=== PATIENT | female | born 1955 | race Caucasian/White ===

== ENCOUNTER 2017-06-27 10:48 | Outpatient (CLI) | payer OTHER ==
--- OUTSIDE RECORDS SUMMARY | 2017-06-27 11:51 | XMS | Clinical Summary ---
:1955 Author Organization [facility] Address [address] [place] [address] Phone Care Team Providers Name Role Phone Dylan Orellana Primary Care Provider tel Allergies Active Allergy Reactions Severity Noted Date Comments No Known Drug Allergies 02/10/2016 Current Medications Prescription Sig. Disp. Refills Start Date End Date Status PROAIR HFA 90 11/11/2016 Active mcg/actuation inhaler HYDROcodone-acetamin TAKE 1 TABLET 0 01/08/2017 Active ophen (NORCO) 10-325 EVERY 4 HOURS mg per tablet NEEDED silver sulfadiazine APPLY BY 2 12/16/2016 Active (SILVADENE, SSD) 1 % TOPICAL ROUTE cream 2 TIMES EVERY DAY A 1/16 INCH (1.5 MM) THICK LAYER TO ENTIRE BURN AREA traZODone (DESYREL) Take 3 tablets 270 tablet 3 01/15/2017 Active 50 MG tablet (150 mg total) by mouth nightly. citalopram (CeleXA) Take 1 tablet 90 tablet 3 01/23/2017 Active 40 MG tablet (40 mg total) 8 by mouth daily. 1 po qd cholestyramine Take 0.5 45 packet 11 04/28/2017 Active (QUESTRAN) 4 gram packets (2 g 8 powder total) by mouth 3 (three) times a day with meals. rivaroxaban TAKE 1 TABLET 06/22/2017 Active (XARELTO) 20 mg DAILY. tablet carvedilol (COREG) TAKE 1 TABLET 04/04/2017 Active 12.5 MG tablet BY MOUTH 4 TIMES DAILY. tretinoin (RETIN-A) Apply 45 g 0 06/26/2017 Active 0.05 % cream topically 8 nightly. carvedilol (COREG) 4 po qd 07/04/2016 Discontinued 12.5 MG tablet 7 rivaroxaban Take 20 mg by Discontinued (XARELTO) 20 mg mouth daily. 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 Social History Tobacco Use Types Packs/Day Years Used Date Current Every Day Smoker Tobacco Cessation:Ready to Quit: No; Counseling Given: No Alcohol Use Drinks/Week oz/Week Comments Defer Sex Assigned at Date Recorded Not on file Last Filed Vital Signs Vital Sign Reading Time Taken Blood Pressure 122/70 06/24/2017 10:38 AM CDT Pulse - - Temperature 36.7 C (98 F) 01/15/2017 8:50 AM CDT Respiratory Rate - - Oxygen Saturation - - Inhaled Oxygen Concentration - - Weight 109 kg (241 lb) 06/24/2017 10:38 AM CDT Height 182.9 cm (6') 06/24/2017 10:38 AM CDT Body Mass Index 32.69 06/24/2017 10:38 AM CDT Plan of Treatment Health Maintenance Due Date Last Done Comments PAP SMEAR 1978 COLONOSCOPY 2007 MAMMOGRAM 2007 INFLUENZA VACCINE 05/13/2017 Results hCG qualitative, urine screen (06/24/2017 11:36 AM) Component Value Ref Range test, urine Negative Negative Specimen Performing Laboratory Urine [facility] Narrative Performed at:[id number] Bra[employer] Molder: Umer Hooper MD, Phone:[phone] CBC with platelet and differential (06/24/2017 11:36 AM) Component Value Ref Range WBC 5.7 3.4 - 10.8 x10E3/uL RBC 4.55 3.77 - 5.28 x10E6/uL HGB 14.4 11.1 - 15.9 g/dL HCT 42.9 34.0 - 46.6 % MCV 94 79 - 97 fL MCH 31.6 26.6 - 33.0 pg MCHC 33.6 31.5 - 35.7 g/dL RDW 13.4 12.3 - 15.4 % Platelet count 267 150 - 379 x10E3/uL Neutrophils 51 % Lymphocytes 36 % Monocytes 10 % Eosinophils 2 % Basophils 1 % Neutrophils, absolute 2.9 1.4 - 7.0 x10E3/uL Lymphocytes, absolute 2.1 0.7 - 3.1 x10E3/uL Monocytes, absolute 0.5 0.1 - 0.9 x10E3/uL Eosinophils, absolute 0.1 0.0 - 0.4 x10E3/uL Basophils, absolute 0.0 0.0 - 0.2 x10E3/uL Immature granulocytes 0 % Immature grans (abs) 0.0 0.0 - 0.1 x10E3/uL Specimen Performing Laboratory Blood [facility] Narrative Performed at:[address] [place], [place] [id number] Bra[employer] Molder: Umer Hooper MD, Phone:[phone] Hemoglobin A1c (06/24/2017 11:36 AM) Component Value Ref Range Hemoglobin A1C 5.3 4.8 - 5.6 % Comment: Pre-diabetes: 5.7 - 6.4 Diabetes: >6.4 Glycemic control for adults with diabetes: <7.0 Specimen Performing Laboratory Blood [facility] Narrative Performed at:[address] [place], [place] [id number] Bra[employer] Molder: Umer Hooper MD, Phone:[phone] Comprehensive metabolic panel (06/24/2017 11:36 AM) Component Value Ref Range Glucose 102(H) 65 - 99 mg/dL BUN, whole blood 15 6 - 24 mg/dL Creatinine 0.73 0.57 - 1.00 mg/dL EGFR Non-Afr. Romanian 90 >59 mL/min/1.73 EGFR 104 >59 mL/min/1.73 BUN/creatinine ratio 21 9 - 23 Sodium 142 134 - 144 mmol/L Potassium 5.6(H) 3.5 - 5.2 mmol/L Chloride 101 96 - 106 mmol/L CO2 24 18 - 29 mmol/L Calcium 10.0 8.7 - 10.2 mg/dL Protein 7.7 6.0 - 8.5 g/dL Albumin, S 4.5 3.5 - 5.5 g/dL Globulin, total 3.2 1.5 - 4.5 g/dL Albumin/globulin ratio 1.4 1.2 - 2.2 Total bilirubin 0.7 0.0 - 1.2 mg/dL Alkaline phosphatase 85 39 - 117 IU/L AST 19 0 - 40 IU/L ALT 18 0 - 32 IU/L Specimen Performing Laboratory Blood [facility] Narrative Performed at: - [facility] [id number] Brake Drum Molder: Umer Hooper MD, Phone:[phone] ECG 12 lead (06/24/2017 11:03 AM) Component Value Ref Range Ventricular rate 76 Atrial rate 76 MS interval 152 QRSD interval 88 QT interval 372 QTC interval 418 P axis 1 75 QRS axis 1 59 T wave axis 52 EKG impression Normal sinus rhythm-Normal ECG-In automated comparison with ECG of 24-JUN-2017 11:03,-No significant change was found- Specimen Performing Laboratory [facility] [address] [place] [address] from Last 3 Months Insurance Payer Benefit Plan / Group Subscriber ID Type Phone Address BCBS BCBS CHOICE PPO/F[employer]ER[employer] EMPL PPO [id number] PPO
== END 2017-06-27 10:49 | disposition home or self-care (01) ==
LOC: LABBT 10:48
PROVIDERS: ATTEND Surgery
DX: Z01.818 Encounter for other preprocedural examination (principal); E66.01 Morbid (severe) obesity due to excess calories

== ENCOUNTER 2017-07-16 09:35 | Inpatient (IN) | payer BC ==
--- OUTSIDE RECORDS SUMMARY | 2017-07-16 09:39 | XMS | Clinical Summary ---
:1955 Author Organization [facility] Address [address] [place] [address] Phone Care Team Providers Name Role Phone [...] Performing Laboratory Urine [facility] Narrative Performed at:[id number] Foiling Machine Adjuster: Umer Hooper MD, Phone:[phone] CBC with platelet and differential (06/24/2017 11:36 [...] Specimen Performing Laboratory Blood [facility] Narrative Performed at:[address] [place], [place] [id number] Foiling Machine Adjuster: Umer Hooper MD, Phone:[phone] Hemoglobin A1c (06/24/2017 11:36 AM) Component Value Ref Range Hemoglobin A1C 5.3 4.8 - 5.6 % Comment: Pre-diabetes: 5.7 - 6.4 Diabetes: >6.4 Glycemic control for adults with diabetes: <7.0 Specimen Performing Laboratory Blood [facility] Narrative Performed at:[address] [place], [place] [id number] Foiling Machine Adjuster: Umer Hooper MD, Phone:[phone] Comprehensive metabolic panel (06/24/2017 11:36 AM) Component Value Ref Range Glucose 102(H) 65 - 99 mg/dL BUN, whole blood 15 6 - 24 mg/dL Creatinine 0.73 0.57 - 1.00 mg/dL EGFR Non-Afr. Nicaraguan 90 >59 mL/min/1.73 EGFR 104 >59 mL/min/1.73 [...] Blood [facility] Narrative Performed at: - [facility] [id number] Foiling Machine Adjuster: Umer Hooper MD, Phone:[phone] ECG 12 lead (06/24/2017 11:03 AM) Component Value Ref Range Ventricular rate 76 Atrial rate 76 OK interval 152 QRSD interval 88 QT interval 372 QTC interval 418 P axis 1 75 QRS axis 1 59 T wave axis 52 EKG impression Normal sinus rhythm-Normal ECG-In automated comparison with ECG of 24-JUN-2017 11:03,-No significant change was found- Specimen Performing Laboratory [facility] [address] [place] [address] from Last 3 Months Insurance Payer Benefit Plan / Group Subscriber ID Type Phone Address BCBS BCBS CHOICE PPO/F[employer]ERAL EMPL PPO [id number] PPO
[2017-07-16 10:21] LABS: Hematocrit 37.3 % (36.0-47.0); Mean Platelet Volume 7.9 fL (7.4-10.4); Red Blood Cell (RBC) Count 3.84 mill/uL (4.20-5.40); White Blood Cell (WBC) Count 19.7 thou/uL (4.8-10.8)
[2017-07-16] MEDS ORDERED: Ondansetron HCl/PF 4 MG/2 ML Vial ONE ×2 (10:29→13:27)
[2017-07-16 10:40] LABS: Lactic Acid - Sepsis 1.3 mmol/L (0.5-2.2)
[2017-07-16 10:41] LABS: Band 15 % (5-11); Neutrophil 73 % (42-75)
[2017-07-16 10:51] LABS: ALT (SGPT) 20 U/L (8-55); AST (SGOT) 20 U/L (5-34); Alkaline Phosphatase 97 U/L (40-150); Anion Gap 17 mmol/L (10-20); BUN (Urea Nitrogen) 35 mg/dL (9.8-20.1); Bilirubin, Total 1.9 mg/dL (0.2-1.2); Calc. Creatinine Clearance 0 mL/min (70-130); Calcium 9.9 mg/dL (7.8-10.44); Carbon Dioxide 17 mmol/L (22-29); Chloride 102 mmol/L (98-107); Estimated GFR-MDRD 57; Globulin 4.4 g/dL (2.4-3.5)
[2017-07-16 10:56] LABS: Troponin I Less than 0.010 ng/mL (< 0.028)
[2017-07-16] MEDS ORDERED: Sodium Chloride 0.9% 100 ML ONE (11:07)
[2017-07-16] MEDS ORDERED: Piperacillin/Tazobactam 4.5 GM VIAL ONE (11:07)
--- NOTE | 2017-07-16 11:14 | RAD ---
PORTABLE CHEST 1 VIEW: Date: 07/16/17 Time: 1034 hours HISTORY: 61-year-old female with abdominal pain, vomiting, hematemesis, chest pain during taking a deep breat h. FINDINGS: Comparison made with exam of 02/04/13. The heart size is borderline. The lungs are well expanded without focal areas of consolidation, pneu mothorax, or pleural effusions. Postop changes in the lower cervical spine and the distal left clavi alfredo are again seen. IMPRESSION: No radiographic evidence of acute cardiopulmonary process. POS: OFF
--- NOTE | 2017-07-16 12:11 | CT ---
CT ABDOMEN AND PELVIS WITH IV CONTRAST: Date: 07/16/17 INDICATION: History of hematemesis and abdominal pain that began 3 days ago. The patient is status post gastric sleeve procedure on 07/03/17. FINDINGS: There is mild left basilar atelectasis. There is a 5.0 mm pulmonary nodule within the left lower lob e, which was present in 2013 and is likely benign. There is postprocedural change consistent with a cholecystectomy and gastric sleeve procedure. There is a large mixed density fluid and gas collection seen along the margin of the gastroplasty site me asuring 189 x 11.9 cm. There are a few scattered locules of gas within the anterior abdominal cavity consistent with pneumoperitoneum. Small locules of gas are seen within the transverse mesocolon. The pancreas and right adrenal gland are normal appearing. The spleen is normal appearing. There is bilateral nephrolithiasis. There are small renal cysts bilaterally. The left adrenal nodule measurin g 1.2 cm is stable to the comparison in 2013. There is a normal appendix in the right lower quadrant . The bladder is partially decompressed. There is scattered diverticula involving the colon without evidence of active diverticulitis. There is a fat-containing umbilical hernia. No definite acute osseous abnormality is evident. There is scattered degenerative and osteoarthritic change. IMPRESSION: 1. Findings consistent with a contained leak along the gastroplasty site. 2. Interval cholecystectomy. 3. Left lower lobe benign pulmonary nodule. 4. Bilateral nephrolithiasis and bilateral renal cysts. 5. Colonic diverticulosis. Findings called to Dr. Durand at 1115 hours on 07/16/17. CODE CR. POS: [facility]
[2017-07-16] MEDS ORDERED: Diltiazem HCl 125 MG, Admixture Fee 1 EACH in Sodium Chloride 0.9% 100 ML IVPB ONE (12:30)
[2017-07-16] MEDS ORDERED: Fentanyl 250 MCG/5 ML VIAL ONE (12:32)
[2017-07-16 12:48] LABS: PTT 38.3 SEC (22.9-36.1); Prothrombin Time 17.7 SEC (12.0-14.7)
[2017-07-16] MEDS ORDERED: Bupivacaine 0.25% HCL 30 ML VIAL ONE (12:50)
--- NOTE | 2017-07-16 12:57 | HP ---
CHIEF COMPLAINT: Abdominal pain and vomiting. HISTORY OF PRESENT ILLNESS: The patient is a 61-year-old female 2 weeks status post sleeve gastrect leyla who was doing well, but over the last few days has started vomiting blood. She said that 2 days ago she vomited a blood clot, felt better. She initially was able to drink some more fluid, but th en continued to vomit blood. She denies fever. Yesterday could not drink. Her last urine was this morning, was dark. She reports blood from her rectum this morning. PAST MEDICAL HISTORY: She has had a cardiac ablation x4 with Dr. Dan. PAST SURGICAL HISTORY: She has had a laparoscopic cholecystectomy, bilateral mastectomy for breast cancer. She has the sleeve and a cervical fusion. MEDICATIONS: ALLERGIES: No known drug allergies. SOCIAL HISTORY: She is . She does not work. She smokes 1 pack per day. No alcohol. FAMILY HISTORY: Noncontributory. PHYSICAL EXAMINATION: VITAL SIGNS: Temperature is 98.5, pulse 134, blood pressure 109/55. GENERAL: She is a well-developed, well-nourished female lying still, awake, alert. HEENT: Unremarkable. LUNGS: Clear. ABDOMEN: Her abdomen is distended. She has got ecchymosis from all the incisions, minimal tenderne ss. She had a CT scan showing a very large fluid collection abutting the staple line with air fluid leve ls that is worrisome for anastomotic leak, but they did not use oral contrast. LABORATORY AND X-RAY FINDINGS: White count is 19.7, H\T\H 12 and 37, platelet count 464. Electroly birdie are fine. ASSESSMENT: Probable anastomotic or suture line disruption with abscess. PLAN: Laparoscopic drainage with feeding jejunostomy. CONSENT: I have discussed the planned procedure as well as risk of bleeding, infection, injury to b owel, bladder, need to open. She understands and gives informed consent.
[2017-07-16 13:14] LABS: Bilirubin Negative (Negative); Blood, Urine Moderate (Negative); Glucose, Urine (Dipstick) Negative (Negative); Ketone, Urine 15 mg/dL (Negative); Nitrite Negative (Negative); Protein, Urine (Dipstick) 30 mg/dL (Neg-Trace)
[2017-07-16] MEDS ORDERED: ADMIXTURE FEE IV SCH (13:15)
[2017-07-16] MEDS ORDERED: HUMAN PROTHROMBIN COMPLX IV SCH (13:15)
[2017-07-16 13:18] LABS: Bacteria/HPF None Seen HPF (None Seen); Hyaline Casts/LPF 0-3 HYALINE CAST LPF (0-3 Hyaline); Squamous Epithelial 0-3 HPF (0-3); WBC/HPF 0-3 HPF (0-3)
[2017-07-16] MEDS ORDERED: PHENYLEPHRINE-NS 100 MCG/ML 10 ML SYRINGE ONE (13:27)
[2017-07-16] MEDS ORDERED: Lidocaine 2% PF 10 ML AMP (For Epidural Use) ONE (13:27)
[2017-07-16] MEDS ORDERED: Propofol 200 MG/20 ML VIAL ONE (13:27)
[2017-07-16] MEDS ORDERED: Succinylcholine Chloride 20 MG/ML 10 ml SYRINGE FS ONE (13:27)
[2017-07-16] MEDS ORDERED: Glycopyrrolate 0.2 MG/ML 5 ML SYRINGE ONE (13:27)
[2017-07-16] MEDS ORDERED: Dextrose 5% in Water 1,000 ML IV PRN (14:48)
[2017-07-16] MEDS ORDERED: diphenhydrAMINE HCl 50 MG/ML 1 ML VIAL IVP PRN (14:48)
[2017-07-16] MEDS ORDERED: Dextrose 50% Abboject 50 ML SYRINGE SLOW IVP PRN (14:48)
[2017-07-16] MEDS ORDERED: Hydrocodone-Acetamin 15 ML UDCUP PO PRN (14:48)
[2017-07-16] MEDS ORDERED: Promethazine HCl 25 MG/ML VIAL IM PRN ×2 (14:48→15:13)
[2017-07-16] MEDS ORDERED: Promethazine HCl 25 MG/ML VIAL SLOW IVP PRN (15:13)
[2017-07-16] MEDS ORDERED: Ondansetron HCl/PF 4 MG/2 ML Vial IVP PRN (15:13)
[2017-07-16] MEDS ORDERED: Fentanyl 100 MCG/2 ML VIAL ONE ×2 (15:22→15:46)
[2017-07-16] MEDS ORDERED: Esmolol 100 MG/10 ML VIAL ONE (15:28)
[2017-07-16] MEDS ORDERED: ISOVUE-370 76%-LOCM 1 ML ONE (16:27)
[2017-07-16] MEDS ORDERED: Metoprolol Tartrate 5 MG/5 ML VIAL ONE (16:32)
[2017-07-16] MEDS: D5 1/2 NS w/20 mEq KCL 1,000 ML IV SCH (16:33)
[2017-07-16] MEDS: Ondansetron HCl/PF 4 MG/2 ML Vial IVP PRN (16:33)
--- NOTE | 2017-07-16 16:39 | OP ---
PREOPERATIVE DIAGNOSIS: Intra-abdominal abscess. SURGEON: Alli Durand M.D. PROCEDURE PERFORMED: Laparoscopic drainage of abscess and EGD. INDICATIONS: This is a 61-year-old female 2 weeks status post sleeve gastrectomy developed progress cris dysphagia, tachycardia. CT scan showing a large fluid collection with air fluid levels within i t consistent with abscess along the staple line. FINDINGS: It was a thin bloody fluid. Cultures were obtained. It was foul smelling. It contained about 500 mL of fluid. The mucosa was normal. There was no air leak, no evidence of communication into the lumen. PROCEDURE: After informed consent was obtained, the patient was taken to the operating room and giv en general endotracheal anesthesia. She was placed in the supine position. Her abdomen was prepped and draped in the usual fashion. Local anesthesia infiltrated subcutaneously and deep and a 5 mm i ncision was performed just supraumbilical. Veress needle inserted. Drop test performed. Pneumoper itoneum was created to a volume of 2 liters of carbon dioxide. Utilizing a bladeless 5 mm trocar an d 5 mm 0-degree scope, direct visual entry in the abdominal cavity was performed. Pneumoperitoneum was then created to a pressure of 15 mmHg. Under direct vision, two 5-mm ports were placed, one in right lateral abdomen, one in the left lateral abdomen. The liver was gently lifted and the fluid c ollection was entered with release of dark blood. This was aspirated and specimen was obtained for culture. Then, the rest of the fluid was removed. The cavity was thoroughly irrigated with saline. At this point, I went ahead and put in a liver retractor to lift the liver away, so we could fully visualize the area of the gastric sleeve and an intraoperative endoscopy was performed. The video endoscope inserted under direct vision and advanced into the stomach. The staple line completely he aled. There was no blood within the stomach. The stomach was insufflated with air under water. Th ere was no air leak. We inspected every fraction of that stomach and I could not find any evidence of leak both internal or external as we observed both from the inside with the scope and outside wit h the laparoscope. Then the stomach was decompressed and the scope removed. The cavity was thoroug hly irrigated with fluid as much of the old hematoma removed and 2 drains were placed, one from the left side crossing into the subhepatic space and one from the subxiphoid area draining right into th at cavity as well. These were sutured in place. Hemostasis was assured. Trocars and retractors re moved. The skin was closed with interrupted vertical mattress of 2-0 Prolene. Sterile bandages benito lied. Patient tolerated the procedure well and transferred to ICU in stable, but serious condition.
--- NOTE | 2017-07-16 16:42 | RAD ---
CHEST ONE VIEW 07/16/17 HISTORY: Central line placement. FINDINGS: The cardiac silhouette is magnified by projection. Pulmonary vasculature is unremarkable. Mediastinu m is midline. Tip of a left subclavian central venous catheter overlies the superior vena cava. Ther e is no evidence of pneumothorax. Postoperative changes of the cervical spine are partially visualiz ed. IMPRESSION: Left subclavian central venous catheter is in good radiographic position. POS: [facility]
[2017-07-16] MEDS: Piperacillin/Tazobactam 3.375 GM in Sodium Chloride 0.9% 100 ML IVPB SCH (17:08)
[2017-07-16 17:16] VITALS: BMI 31.6
[2017-07-16] MEDS: Amiodarone HCl 450 MG, Admixture Fee 1 EACH in Dextrose 5% in Water 250 ML IVPB SCH ×3 (17:50)
[2017-07-16] MEDS: metroNIDAZOLE 500 MG in Premix Bag 1 BAG IVPB SCH (21:30)
[2017-07-16] MEDS ORDERED: Digoxin 0.5 MG/2 ML AMP SLOW IVP SCH (21:30)
--- NOTE | 2017-07-16 23:46 | CON ---
DATE OF CONSULTATION: 07/16/2017 CRITICAL CARE TIME: 30 minutes. HISTORY OF PRESENT ILLNESS: This patient is a 61-year-old woman with a long history of atrial fibrillation, who presents with recurrent palpitations. The patient has a long history of atrial fibrillation. She has undergone multiple ablations for atrial fibrillation. She recently underwent surgery. The patient presented to the emergency room with abdominal discomfort. She underwent an emergent surgery. She was found to have a leak at the gastroplasty site and a hematoma. The patient underwent surgery. She was noted prior to surgery be in irregular heart rhythm. The patient reports palpitations. PAST MEDICAL HISTORY: 1. Atrial fibrillation. 2. Hypertension. 3. Breast carcinoma. PAST SURGICAL HISTORY: Hysterectomy, shoulder surgery, mastectomy and cholecystectomy. HOME MEDICATIONS: Xarelto 20 daily, Coreg 12.5 q.i.d. and Celexa 400 daily. SOCIAL HISTORY: The patient continues to use tobacco. FAMILY HISTORY: Positive family history of father who had myocardial infarction. PHYSICAL EXAMINATION: GENERAL: Middle-aged woman in acute distress. VITAL SIGNS: Blood pressure of 109/70. NECK: Showed no jugular venous distention. LUNGS: Clear to auscultation. HEART: Regular rate and rhythm, normal S1, S2. ABDOMEN: Distended with a BETTY drain. EXTREMITIES: Showed trace edema. LABORATORY DATA: White blood cell count is 19.7, hemoglobin 12.3, hematocrit 37.3 and platelets are 464. Sodium is 132, potassium 3.8, chloride 102, bicarbonate is 17, BUN 35, creatinine is 1.0, glucose 112, troponin less than 0.012. EKG revealed atrial fibrillation with a nonspecific T-wave abnormality. security monitor revealed sinus tachycardia. This patient developed paroxysmal atrial fibrillation. She underwent emergent surgery. At this time, the patient was treated with IV Cardizem. The patient most likely will not be able to back on anticoagulation therapy. We will switch the patient on IV amiodarone. We will follow this patient with you through her hospitalization. KIMANI
--- NOTE | 2017-07-16 23:57 | CON ---
DATE OF CONSULTATION: 07/16/2017 HISTORY OF PRESENT ILLNESS: A 61-year-old female, history is well outlined, who recently underwent on 07/04/2017 gastric sleeve resection. She was doing well postop and for the last several days, jonas pichardo has had symptoms of nausea and vomiting and apparently, vomited blood and passed some blood in the stool. She was seen by Dr. Durand for evaluation of hematemesis and lower GI bleed. She underwent a laparos copic intervention today. Please see Dr. Durand's note. Postop in the ICU, reason for consult. She is a former smoker. She has cut back smoking 2 cigarettes a day. PAST MEDICAL HISTORY: Well outlined including previous cardiac arrhythmias, multiple ablations, dep ression, and previous breast cancer. PAST SURGICAL HISTORY: Including a recent gastric sleeve gastrectomy, previous bilateral mastectomy , gallbladder, previous cervical surgery. MEDICINE FROM HOME: Includes Xarelto 20, trazodone 50, Celexa 40, Coreg 12.5. ALLERGIES: None. SOCIAL HISTORY: Unremarkable. FAMILY HISTORY: Unremarkable. PHYSICAL EXAMINATION: VITAL SIGNS: Postop blood pressure is 105/57 on A-line, pulse 130, respirations 18, sats 100%. CHEST: No wheezing or crackles. CARDIAC: Normal S1 and S2. No gallops. ABDOMEN: Soft. LABORATORY DATA: White count 90,000, hemoglobin and hematocrit 12 and 37, platelet counts 465. Cre atinine normal. Sodium is 132. Albumin is 3.6. IMAGING DATA: She had a chest x-ray which shows no acute infiltrates. She had a CT done of the abd omen, which shows some kind of a leak like area along the gastro site and bilateral nephrolithi asis. IMPRESSION: 1. Status post laparoscopic visualization of the recent gastric sleeve area with apparently hematom a on site. 2. Long-term Xarelto for atrial arrhythmias. 3. Depression. 4. Obesity. 5. Breast cancer. PLAN: Pulmonary mari, I agree with symptomatic relief of her pain, neb treatment as prescribed. Lan sidhu PT. We will follow while in the ICU. Early ambulation.
[2017-07-17] MEDS: D5 1/2 NS w/20 mEq KCL 1,000 ML IV SCH
[2017-07-17] MEDS: Amiodarone HCl 450 MG, Admixture Fee 1 EACH in Dextrose 5% in Water 250 ML IVPB SCH ×3 (00:05)
[2017-07-17] MEDS ORDERED: Digoxin 0.5 MG/2 ML AMP SLOW IVP SCH (01:30)
[2017-07-17 04:39] LABS: Anion Gap 10 mmol/L (10-20); BUN (Urea Nitrogen) 26 mg/dL (9.8-20.1); Calc. Creatinine Clearance 130 mL/min (70-130); Carbon Dioxide 22 mmol/L (22-29); Chloride 104 mmol/L (98-107); Estimated GFR-MDRD 76
[2017-07-17 05:23] LABS: Acanthocytes SLIGHT = 1-5 cells (100X) (None Seen); Band 19 % (5-11); Helmet Cells SLIGHT = 2-5 cells (100X) (0-1/hpf); Hematocrit 33.3 % (36.0-47.0); Mean Platelet Volume 7.5 fL (7.4-10.4); Metamyelocyte 5 % (0-0); Neutrophil 53 % (42-75); Reactive Lymphocytes 2 % (0-10); Red Blood Cell (RBC) Count 3.37 mill/uL (4.20-5.40); Toxic Granulation SLIGHT; White Blood Cell (WBC) Count 8.3 thou/uL (4.8-10.8)
[2017-07-17] MEDS: Piperacillin/Tazobactam 3.375 GM in Sodium Chloride 0.9% 100 ML IVPB SCH ×4 (05:48→11:28)
[2017-07-17] MEDS: metroNIDAZOLE 500 MG in Premix Bag 1 BAG IVPB SCH ×2 (05:58→12:46)
[2017-07-17] MEDS ORDERED: Sodium Chloride 0.9% 500 ML IV SCH (07:30)
[2017-07-17] MEDS: Ondansetron HCl/PF 4 MG/2 ML Vial IVP PRN (08:27)
[2017-07-17] MEDS ORDERED: Pantoprazole 40 MG VIAL IVP SCH (09:00)
[2017-07-17] MEDS ORDERED: Enoxaparin Sodium 40 MG/0.4 ML SYRINGE SC SCH (09:00)
--- NOTE | 2017-07-17 09:44 | PRG ---
DATE OF SERVICE: 07/17/2017 This morning, awake, alert, responsive. She is still NPO. She is going to have a swallow test done today. PHYSICAL EXAMINATION: VITAL SIGNS: Still tachy at 130, respirations 22, temperature 97, remained afebrile, sats are 93-94 % on room air. CHEST: Chest revealed decreased breath sounds, no wheezing. CARDIAC: Sinus tachycardia. ABDOMEN: Soft, no masses. LABORATORY: White count 8000, H\T\H 10 and 33, platelet count is 403. INR 1.4. Electrolytes are n ormal. Sodium 132. IMPRESSION: 1. Status post laparoscopic drainage of a sleeve gastrectomy abnormality. 2. Tobacco abuse. 3. Sinus tachycardia. PLAN: Will get a swallow test. Continue observation in the ICU. Continue antibiotics. We will fo llow while in the ICU.
--- NOTE | 2017-07-17 10:04 | RAD ---
LIMITED UPPER GI WITH 15 Ml GASTROGRAFIN: HISTORY: Recent surgery from complication of vertical sleeve gastrectomy. FINDINGS: There is prompt passage of contrast from the esophagus into the gastric remnant with contrast extrav asation below the level of the diaphragm. IMPRESSION: Contrast extravasation consistent with leak. Discussed over the telephone with Dr. Alli Durand at 9:40 a.m. CODE THUY POS: [facility]
[2017-07-17 11:08] VITALS: TEMP 98.2
[2017-07-17] MEDS ORDERED: D5 1/2 NS w/20 mEq KCL 1,000 ML IV SCH (11:45)
[2017-07-17] MEDS ORDERED: Iopamidol 300 61% 30 ML VIAL ONE (12:00)
--- NOTE | 2017-07-17 20:52 | CON ---
DATE OF CONSULTATION: 07/17/2017 REFERRING PHYSICIAN: Dr. Marroquin. I am seeing Ms. Espinosa at our [facility] ICU who is elected from the project consultant. Her problems are: 1. Recurrent atrial arrhythmias. A. Presentation on 01/24/2017, with a rapid atrial fibrillation/flutter. B. Prior history of multiple left atrial ablation procedure including in 07/2015, which included a left atrial appendage isolation. 2. History of tachycardia-induced cardiomyopathy, now with normal ejection fraction. A. A 2D echo on 02/15/2017, shows no thrombus in the left atrial appendage, mild tricuspid regurgitation. 3. History of breast cancer. 4. History of hypertension. ALLERGIES: None noted. MEDICATIONS: Xarelto 10 mg a day, Celexa 40 mg a day, Carvedilol 25 mg twice a day and trazodone 50 mg p.o. p.r.n. SUBJECTIVE: Ms. Espinosa was admitted after recent sleeve gastrectomy about 2 weeks back. She did well, but couple of days prior to admission, she started vomiting blood. She also vomited some clots and she felt better and then she was able to drink some fluid, but the vomiting continued, hence she was admitted. She was evaluated by her surgeon, Dr. Durand and she underwent a laparoscopic drainage of an abscess and also an EGD was done. In fact, there was no air leak, but eventually a decision was made that she should undergo a gastric stenting procedure . She was started on IV amiodarone for rate control by Dr. Marroquin. Currently, she has no fever, chills or cough. No stroke-like symptoms. No neurological deficits. Again, the hematemesis/ vomiting is noted. On the other hand, she is very emotionally upset. PAST MEDICAL HISTORY: As above. SOCIAL HISTORY: Patient denies smoking, EtOH or drug use. FAMILY HISTORY: Noncontributory. OBJECTIVE DATA: VITAL SIGNS: Blood pressure 120/71, heart rate 132, respirations 16 and temperature 98.2 degrees Fahrenheit. GENERAL: This is an alert and oriented woman in no apparent distress. NECK: Supple. Jugular veins not distended. CHEST: Coarse without crackles. ABDOMEN: Laparotomy incisions are without reaction. Abdomen is otherwise benign. Bowel sounds are positive. EXTREMITIES: Lower extremities without edema, clubbing or cyanosis. Pulses are adequate. NEUROLOGIC: Patient is nonfocal. MUSCULOSKELETAL: No joint swelling or deformities. SKIN: Without rash. DATABASE: EKGs reviewed reveals an atypical atrial flutter with likely 2:1 AV conduction. LABORATORY DATA: White count is 8.3, hemoglobin 10.9 and platelet count is 403. Sodium is 132, potassium is 4.3, BUN is 26, creatinine is 0.78 and INR is 1.4. The upper GI study today reveals contrast extravasation conservatively. ASSESSMENT AND PLAN: Ms. Espinosa is a pleasant 61-year-old woman with multiple left atrial ablation procedures for persistent atrial fibrillation and atypical atrial flutters. This includes also left atrial appendage isolation in the past. Now, she is here with the possible post-gastric sleeve leak demonstrated by her upper GI series and also she developed atrial flutter with rapid rate. She was started on amiodarone drip. Complicated issues obviously that she needs to come off the Xarelto and she is not receiving it since admit At this point, I agree with rate control amiodarone. If necessary, digoxin could be added to the regimen. On the other hand, she received IV digoxin 0.75 mg. Cardioversion could be a consideration, but now, she is off the Xarelto, this is likely a very difficult proposition without risking some thromboembolism. DEACON/CV is also difficult in this situation, although could be considered at a later time for cardioversion if that is felt necessary if agreed by GI. For now, continue IV amiodarone as it is initiated. IV beta-blockers could be added as well as IV digoxin if felt necessary. Possible cardioversion at a later date and anticoagulation can be resumed. MTDD
--- NOTE | 2017-07-17 20:55 | DIS ---
DISCHARGE DIAGNOSES: Gastric staple line leak, intra-abdominal abscess, postoperative hematoma, and atrial fibrillation with rapid ventricular response. PROCEDURES DURING ADMISSION: Cardizem drip, laparoscopic drainage of intra-abdominal abscess, intra operative esophagogastroscopy, and postoperative Gastrografin swallow. HOSPITAL COURSE: The patient was admitted from the emergency room where CT scan showed a large flui d collection. They did not use oral contrast. She was taken to the operating room where she was dr payton. She was in atrial fibrillation. She was maintained on a cardiac drip. Intraoperatively, jonas pichardo had EGD that showed no evidence of a leak. Drains were placed. Postoperatively, she is doing bet ter, still in atrial flutter at a rate of about 130, but awake and alert and otherwise good vital si gns. Cardiology was consulted; they felt like she was in just flutter. They were going to consult the EP doctors. Gastrografin swallow was performed that showed a definite leak. GI in [place] was consulted, , who feels that he can offer stenting and will accept the patient in transfer, but will go from here to the ICU at [facility] in [place], so the hospitalist will admit the patient . So, we are transferring the patient. Vital signs; heart rate 132 in atrial flutter, blood pressu re 136/78. Awake, alert, with two drains and on IV fluids.
--- NOTE | 2017-07-18 06:25 | EKG ---
Test Reason : A FIB Blood Pressure : / mmHG Vent. Rate : 132 BPM Atrial Rate : 132 BPM P-R Int : 000 ms QRS Dur : 094 ms QT Int : 294 ms P-R-T Axes : 090 027 -81 degrees QTc Int : 435 ms Sinus tachycardia Abnormal ECG When compared with ECG of 16-JUL-2017 09:49, (Unconfirmed) Sinus rhythm has replaced Atrial fibrillation Confirmed by ANDREW CAREY ([id number]) on 07/18/2017 6:25:13 AM Referred By: CAREY Confirmed By:ANDREW CAREY
== END 2017-07-17 14:00 | disposition short-term general hospital (02) | DRG 856 ==
LOC: ERS 09:35 → CCU 13:46
PROVIDERS: ADMIT Surgery; ATTEND Surgery
PROC: 0DJ08ZZ Inspection of Upper Intestinal Tract, Via Natural or Artificial Opening Endoscopic (ICD-10-PCS; principal; 2017-07-16)
PROC: 0W9G4ZX Drainage of Peritoneal Cavity, Percutaneous Endoscopic Approach, Diagnostic (ICD-10-PCS; 2017-07-16)
PROC: 02HV33Z Insertion of Infusion Device into Superior Vena Cava, Percutaneous Approach (ICD-10-PCS; 2017-07-16)
DX: T81.4XXA Infection following a procedure, initial encounter (principal); K65.1 Peritoneal abscess; K91.870 Postprocedural hematoma of a digestive system organ or structure following a digestive system procedure; I48.92 Unspecified atrial flutter; F17.210 Nicotine dependence, cigarettes, uncomplicated; Z98.84 Bariatric surgery status; Z90.13 Acquired absence of bilateral breasts and nipples; Z98.1 Arthrodesis status; R00.0 Tachycardia, unspecified; F32.9 Major depressive disorder, single episode, unspecified; I48.0 Paroxysmal atrial fibrillation
CPT/HCPCS: 36416; 71010; 74177; 74241; 80048; 80053; 81003; 81015; 82553; 83605; 84484; 85025; 85610; 85730; 86850; 86900; 86901; 87040; 87070; 87077; 87186; 87205; 93005; 93010; 96361; 96365; 96375; C9113; C9132; J0282; J1160; J1642; J1650; J2001; J2270; J2405; J2543; J2704; J3010; J7050; J7070; S0020

== ENCOUNTER 2017-07-28 17:14 | Inpatient (IN) | payer BC ==
[2017-07-28 17:36] VITALS: BMI 32.8
[2017-07-28] MEDS ORDERED: Diltiazem HCl 125 MG, Admixture Fee 1 EACH in Sodium Chloride 0.9% 100 ML SLOW IVP SCH (18:15)
[2017-07-28] MEDS ORDERED: Heparin 10,000 UNITS/ 10 ML VIAL SLOW IVP SCH (18:15)
[2017-07-28] MEDS: Heparin 25,000 units/D5W 500 ML IV SCH (19:39)
[2017-07-28] MEDS: traZODone HCl 150 MG TAB PO SCH (21:30)
[2017-07-28] MEDS: Metoprolol Tartrate 25 MG TAB PO SCH (21:30)
[2017-07-28] MEDS: Piperacillin/Tazobactam 3.375 GM in Sodium Chloride 0.9% 100 ML IVPB SCH (21:30)
[2017-07-28] MEDS ORDERED: Vancomycin HCl 1.25 GM in Sodium Chloride 0.9% 250 ML 250 ML IVPB SCH (23:00)
[2017-07-29] MEDS: Piperacillin/Tazobactam 3.375 GM in Sodium Chloride 0.9% 100 ML IVPB SCH ×2 (02:29→10:30)
--- NOTE | 2017-07-29 03:10 | CON ---
DATE OF CONSULTATION: 07/29/2017 REQUESTING: Dr. Alli Durand. PRIMARY RIV[employer]ER [employer]RA[employer]: Dr. Marroquin. PRIMARY CARE PHYSICIAN: Out of town. REASON FOR CONSULTATION: Medical management. HISTORY OF PRESENT ILLNESS: Ms. Espinosa is a 61-year-old white female with a complicated recent past m edical history. She underwent a laparoscopic gastric sleeve on 07/03/2017. Intraoperative course wa s uncomplicated. She was discharged home on 07/04/2017. She was readmitted here on 07/16/2017-07/17/2017 for what appeared to be a postop complication of leak with abscess. She underwent drainage of a foul smelling fluid growing what looks like three differ ent anaerobic gram negative rods, Citrobacter freundii and Enterobacter cloacae. She was subsequent ly transferred on 07/17/2017 to [facility] to be seen by Dr. Aguirre there and was at [facility] from 02/2017-07/28/2017. Her course there was consisted of gastroesophageal junction stent on 07/28/2017, repeat imaging on 07/21/2017 showed persistent leak and on 07/24/2017 underwent a second stent place ment. Since then she has had no evidence of leak. She has been in and out of atrial flutter there and has required amiodarone loading, diltiazem drip, heparin drip, and digoxin. She is currently in sinus rhythm. She was transferred from [facility] back to [place] today as a reason for referral was completed and she is back here for continuation of care. First thing she ask when I enter the room today was when she gets to go home. She denies any chest pain, difficulty breathing, nausea, and vomiting. Her only complaint is that she did all this for w eight loss and has actually gained weight. She complains of bilateral lower extremity edema. No ot her current complaints. PAST MEDICAL HISTORY: 1. Atrial fibrillation/atrial flutter. 2. Breast cancer, status post bilateral mastectomy. 3. Hypertension. 4. Depression. 5. Gastric sleeve leak as above. PAST SURGICAL HISTORY: Includes: 1. Cardioversion 03/03/2015. She has had ablation x4 for atrial flutter. 2. Gastric sleeve 07/03/2017 with laparoscopic drainage without feeding jejunostomy on 07/16. Subse quent stent placement on 07/18 and 07/24. 3. Laparoscopic cholecystectomy remotely. 4. C-spine fusion remotely. MEDICATIONS: 1. Xarelto 20 a day on hold. 2. Trazodone 50 mg at bedtime. 3. Celexa 40 mg daily. 4. Coreg 12.5 mg b.i.d. CURRENT MEDICATIONS: In house: 1. Amiodarone 200 mg p.o. b.i.d. 2. Lipitor 10 mg p.o. at bedtime. 3. Digoxin 0.125 mg p.o. daily. 4. Metoprolol tartrate 50 mg b.i.d. 5. Zofran 4 mg q.6 hours p.r.n. 6. Vancomycin and Zosyn. 7. Protonix 40 mg daily. ALLERGIES: No known drug allergies. FAMILY HISTORY: Negative for clotting or bleeding disorder. No immune dysfunction. SOCIAL HISTORY: She is . Smokes 1 pack of cigarettes per day. No alcohol or IV drug use. She does not work regularly. REVIEW OF SYSTEMS: A 10-point review of systems was performed and is negative for all other systems except as stated per HPI. PHYSICAL EXAMINATION: VITAL SIGNS: Temperature 97.9, pulse 85, blood pressure 147/65, respiratory rate 16, satting 95% on room air. GENERAL: She is awake. She is alert. She is oriented x3. She is a well-developed, well-nourished , white female, who appears to be in no acute distress. HEENT: Normocephalic, atraumatic. Pupils are equal, round and reactive to light bilaterally. Muco us membranes are moist. There are no visible lesions, no thrush. LUNGS: Clear anteriorly. She has a faint bibasilar crackles. She has no wheezes or rales. No pro longed expiratory phase. She has symmetrical chest excursion and good air exchange. CARDIOVASCULAR: She has normal S1, S2. She has regular rhythm and a normal rate. I do not appreci ate murmurs. ABDOMEN: Soft. It is nontender. She has no rebound, rigidity or guarding with good bowel sounds. She has two drains placed percutaneously with some sediment laden tannish drainage. EXTREMITIES: Show no cyanosis, no clubbing. She has 2+ peripheral edema up to about the level of t he knee bilaterally. She has 2+ peripheral pulses in dorsalis pedis and posterior tibial. SKIN: Warm, moist, and well perfused. She has a left chest triple-lumen central venous catheter in place with a dressing that is clean, dry, and intact. MUSCULOSKELETAL: Normal to inspection without any inflammation or palpable joint effusions. NEUROLOGIC: Cranial nerves II through XII are grossly intact. She has no focal deficits, 5/5 stren gth in her all 4 extremities with normal speech pattern. LABORATORY DATA: None today. Labs from [facility]'s chart was reviewed. Microbiologic data was revi ewed from here. ASSESSMENT AND PLAN: 1. Gastric sleeve with postop complication of leak and intra-abdominal abscess, status post drainag e and now with stent placement for persistent leak. She was transferred back to [place] for long-term care. She will need long-term IV antibiotics. Typically with adequate drainage, we treat for mini mum of 2 weeks or until radiographically resolved. In this case, she has drains in place and contin ued to drain. I would plan on treating for at least 4 weeks or until radiographically resolved. Jena pichardo is currently on vancomycin and Zosyn. I have no cultures here with staph. In fact, only culture showed gram-negative rods and anaerobes. I do not see any microbiologic data from the outside hospi ysabel that would warrant continuation of vancomycin at this time, although it is covering upper GI for such as Peptostreptococcus and possibly Enterococcus. These should be covered with Zosyn. We shou ld be able to streamline this to Zosyn. The biggest concern is the Citrobacter freundii and Enterob acter cloacae tend to become resistant if there is foci that will take longer than a couple of weeks to clear, even resistant while on monotherapy. Fortunately double covering with fluoroquinolone co uld exacerbate her tendency to go back into arrhythmias. We will continue current management at pre sent. We will likely need Infectious Disease consultation for long-term antibiotic management. 2. Atrial fibrillation/atrial flutter. Currently on a Cardizem drip at 5 mg per hour, digoxin, ami odarone, still in loading dose of [address] Marroquin has been consulted by Dr. Durand. We will follow his recommendations. 3. Hypertension, currently stable. 4. Depression. 5. Volume overload with peripheral edema: Likely secondary to multiple infusions she is on. We wi ll continue to monitor. Morning labs have been ordered, her inpatient medicines have been continued here on transfer. We wi ll follow up on consulting recommendations in the morning and be available to manage medically.
[2017-07-29 06:08] LABS: #Eosinphils 0.1 thou/uL (0.0-0.7); #Monocytes 0.9 thou/uL (0.11-0.59); #Neutrophils 10.3 thou/uL (1.40-6.50); %Basophils 0.3 % (0.0-1.0); %Eosinophils 0.8 % (0.0-10.0); %Lymphocytes 8.2 % (21.0-51.0); %Monocytes 7.4 % (0.0-10.0); Hematocrit 29.4 % (36.0-47.0); Mean Platelet Volume 7.9 fL (7.4-10.4); Red Blood Cell (RBC) Count 2.97 mill/uL (4.20-5.40); White Blood Cell (WBC) Count 12.3 thou/uL (4.8-10.8)
[2017-07-29 06:26] LABS: ALT (SGPT) 13 U/L (8-55); AST (SGOT) 11 U/L (5-34); Alkaline Phosphatase 78 U/L (40-150); Anion Gap 10 mmol/L (10-20); BUN (Urea Nitrogen) 8 mg/dL (9.8-20.1); Bilirubin, Total 0.4 mg/dL (0.2-1.2); Calc. Creatinine Clearance 39 mL/min (70-130); Calcium 8.5 mg/dL (7.8-10.44); Carbon Dioxide 30 mmol/L (22-29); Chloride 103 mmol/L (98-107); Estimated GFR-MDRD 32; Globulin 3.8 g/dL (2.4-3.5); Protein, Total 6.3 g/dL (6.0-8.3)
[2017-07-29] MEDS ORDERED: Bisacodyl 10 MG SUPP PR PRN (07:27)
--- NOTE | 2017-07-29 07:43 | HP ---
CHIEF COMPLAINT: Followup gastric leak. HISTORY OF PRESENT ILLNESS: The patient is a 61-year-old female who underwent a sleeve gastrectomy on 07/03/2017. She was restarted on her anticoagulants within 24 hours due to atrial fibrillation f lutter. She developed postop hematoma and she continued to smoke cigarettes, despite being told not to. She started vomiting, started vomiting up some old blood. got tachycardic, came to the ER 2 w eeks postoperatively was found to have an abscess. She was taken to the operating room where she un derwent a drainage procedure, initially during that surgery did not find a leak, but on the next day with a swallow study she did have a leak. She also was readmitted with atrial fibrillation and a r apid ventricular response. Cardiology was consulted, that was controlled with Cardizem. She was tr ansferred to [place] to [facility] where she underwent a gastric stent placement. The initial one d id not work properly, it migrated, the second one did work and now the leak is controlled. She has 2 drains in that were placed laparoscopically. She complains of abdominal pain and hunger. She is tired of the liquid diet. PAST MEDICAL HISTORY: Atrial fibrillation flutter. PAST SURGICAL HISTORY: She has had cardiac ablation x4 with Dr. Dan. She has had a laparoscopic cholecystectomy. She has had bilateral mastectomy for breast cancer, sleeve and a cervical fusion as well as drainage procedure. MEDICATIONS: Carvedilol, Celexa, Xarelto. ALLERGIES: She has known drug allergies. FAMILY HISTORY: Father of heart attack. Mother is . SOCIAL HISTORY: She is . She recently quit smoking. She does drink occasional alcohol. PHYSICAL EXAMINATION: VITAL SIGNS: Temperature 98.3, pulse 76, blood pressure 160/73. GENERAL: She is awake, alert, appears to be uncomfortable. HEENT: No jaundice. LUNGS: Clear. HEART: Regular rate and rhythm. ABDOMEN: Soft, slightly distended. There is a thick purulent fluid coming out both of the BETTY drain s. There is no palpable mass. The incisions are healing well. EXTREMITIES: Unremarkable. LABORATORY AND X-RAY FINDINGS: White count 12.3, H\T\H of 9.2 and 29, platelet count 285 and her PT T is 90. Her chemistries, electrolytes are fine. Elevated glucose at 119. ASSESSMENT: Status post stenting for gastric leak. PLAN: Full liquids, Cardiology evaluation.
--- NOTE | 2017-07-29 08:01 | PDOC.PN ---
- Subjective Encounter Start Date: 07/29/17 Encounter Start Time: 07:59 Ms. Espinosa notes some abdominal discomfort. she says it rates at about a 5-7/10 constantly. She denies chest pain or shortness of breath. - Objective MAR Reviewed: Yes Vital Signs & Weight: Vital Signs (12 hours) Temp Pulse Resp BP Pulse Ox 07/29/17 07:35 98.0 F 77 18 145/67 H 92 L 07/29/17 05:36 98.3 F 76 14 163/73 H 93 L Weight Weight 148 lb I&O: 07/28/17 07/29/17 07/30/17 06:59 06:59 06:59 Intake Total 798 Output Total 1125 Balance -327 Result Diagrams: 07/29/17 05:58 07/29/17 05:58 Phys Exam - Physical Examination HEENT: PERRLA Respiratory: no wheezing, no rales, no rhonchi, clear to auscultation bilateral Cardiovascular: RRR, no significant murmur, no rub Gastrointestinal: soft, non-tender, positive bowel sounds Musculoskeletal: edema present + swelling both lower extremities Dx/Plan (1) Gastric leak Code(s): K91.89 - OTH POSTPROCEDURAL COMPLICATIONS AND DISORDERS OF DGSTV SYS Status: Acute (2) Hypertension Code(s): I10 - ESSENTIAL (PRIMARY) HYPERTENSION Status: Acute (3) Atrial fib/flutter, transient Code(s): JKO3599 - Status: Acute (4) Morbid obesity Code(s): E66.01 - MORBID (SEVERE) OBESITY DUE TO EXCESS CALORIES Status: Acute - Plan * Gastric Sleeve s/p leak, and intra-abdominal infection. She also developed AFIB with RVR. * AFIB- her heart rate is controlled, however she is still on a Cardizem drip, she is also on Metoprolol and Digoxin orally * Await further recommendation by Cardiology * HTN- blood pressure is elevated- will monitor over the course of the day, and consider adding Amlodipine * Intra-abdominal infection- agree with ID consult, to aid in antibiotic choice , and length of therapy
[2017-07-29] MEDS ORDERED: FLU VACC QS2017-18 36 mo. & older 0.5 ML SYRINGE IM ONE (09:00)
[2017-07-29] MEDS ORDERED: Digoxin 0.125 MG TAB PO SCH (09:00)
[2017-07-29] MEDS: Citalopram 20 MG TAB PO SCH (10:00)
[2017-07-29] MEDS: Metoprolol Tartrate 25 MG TAB PO SCH ×2 (10:11→21:38)
[2017-07-29] MEDS: Heparin 25,000 units/D5W 500 ML IV SCH ×2 (11:18→23:50)
--- NOTE | 2017-07-29 13:06 | CON ---
DATE OF CONSULTATION: 07/29/2017 REASON FOR CONSULTATION: Post-sleeve gastrectomy leak with abscess. HISTORY OF PRESENT ILLNESS: A 61-year-old patient who has a history of atrial fibrillation flutter, previously on anticoagulation who had a sleeve gastrectomy who had episodes of vomiting following the procedure and eventually was diagnosed with a leak with an abscess. She went to [place] and had a stent placed for diversion or protection of the area of leak and allow healing. In the meantime, she was under a liquid diet only and receiving broad spectrum coverage. The organisms isolated from the abscess are discussed below. She is sitting up in bed awake, alert, in mild to moderate pain in the abdominal area. No headaches, visual symptoms, sore throat, odynophagia, dysphagia, no dyspnea or cough, some back pain. No genitourinary symptoms. No joint symptoms. PAST MEDICAL HISTORY: Atrial fibrillation, flutter on anticoagulation in the past, cardiac ablation by Dr. Dan, cholecystectomy, mastectomy for management of breast cancer, sleeve gastrectomy with leak as noted above, and cervical fusion. MEDICATIONS: Currently she is receiving Dulcolax, Celexa, heparin, Lopressor, Protonix, Zosyn, vancomycin. ALLERGIES: None. FAMILY HISTORY: Coronary artery disease. SOCIAL HISTORY: Lives in [place], former smoker, quit recently. Drinks occasionally. . PHYSICAL EXAMINATION: VITAL SIGNS: T-max 98.2, blood pressure 140/60, pulse 77, respirations 18, O2 sat 92-95%. GENERAL: She does not appear in distress. SKIN: With surgical site. She has [address] and they were supposed to be removed soon, a central line in the left subclavian position. HEENT: Ocular movements are conjugate. Oral cavity moist. NECK: Supple. LUNGS: With symmetric air entry. HEART: S1, S2, regular rate. No S3, S4. ABDOMEN: Mildly tender in the anterior upper segment around the midline. Bowel sounds are present, no ascites. No bladder distention. EXTREMITIES: No joint inflammatory activity. There is some element of stasis dermatitis and lymphedema in lower extremities. Pulses are 1+ in dorsalis pedis. Plantar responses are flexor. No clonus. NEUROLOGIC: Cognitive function appears to be intact. Follows commands, oriented, pleasant. LABORATORY DATA: White cell count 12.3, hemoglobin 9.2, MCV 99, platelets 285 with 82% neutrophils and INR was not done. Sodium 139, creatinine 1.64. This is higher than her baseline which is 0.721. Liver profile normal. Albumin 2.5. The previous imaging study report from 07/16/2017 with a contained leak along the gastroplasty site, cholecystectomy, pulmonary nodule and a large mixed density fluid and gas collection along the margin of the gastroplasty measuring 18 x 11 cm. ASSESSMENT: Atrial fibrillation flutter in the past with ablation, previously on anticoagulation and then a sleeve gastrectomy associated with leak and intra- abdominal abscess s/p drainage and stenting. The patient has had drainage procedure. The abscess has the expected polymicrobial patsy with Citrobacter freundii, Enterobacter cloacae and various anaerobes as noted. The patient will be transitioned to a PICC line and continue IV meropenem the outpatient setting whenever she is ready for discharge planning after control of the SVT and for a few weeks. Followup CT scan to verify resolution of the collection. Eventually she will have the stent removed after the predicted healing of the leakage area. Discussed potential adverse reactions from the antimicrobial therapy, particularly skin and hypersensitivity reactions of diarrhea, kidney or liver, bone marrow toxicity as well as complications resulting from PICC line, particularly clotting and obstruction of the lumen and so on. MTDD
[2017-07-29] MEDS ORDERED: Meropenem 1 GM in Sodium Chloride 0.9% 100 ML IVPB SCH (14:00)
--- NOTE | 2017-07-29 15:33 | CON ---
DATE OF CONSULTATION: 07/29/2017 HISTORY OF PRESENT ILLNESS: The patient is a pleasant 61-year-old woman, who presents for cardiac evaluation after undergoing stent placement. The patient has a history of multiple ablations for atrial fibrillation. The patient presented with abdominal discomfort. The patient previously underwent bariatric surgery and subsequently developed abdominal discomfort and underwent surgery. The patient developed recurrent palpitations. The patient was noted to be in atrial fibrillation. She had to be transferred to [place] for an emergent stent placement into her abdomen. The patient has been maintained on amiodarone, Cardizem and IV heparin. The patient denies having any palpitations. The patient denies having any chest discomfort. She reports having mild abdominal discomfort. PAST MEDICAL HISTORY: 1. Atrial fibrillation. 2. Hypertension. 3. Breast carcinoma. PAST SURGICAL HISTORY: Hysterectomy, shoulder surgery, mastectomy, and cholecystectomy. SOCIAL HISTORY: The patient has a long history of tobacco abuse. FAMILY HISTORY: Positive family history of heart disease. MEDICATIONS: Digoxin 0.125 q.a.m., Celexa 40 daily, amiodarone 200 b.i.d., metoprolol 50 b.i.d., IV heparin, IV Cardizem, trazodone 150 at bedtime, Protonix 40 daily, vancomycin and piperacillin. REVIEW OF SYSTEMS: Ten point system noticeable for diarrhea and lower extremity swelling. Ten-point system otherwise unremarkable. PHYSICAL EXAMINATION: GENERAL: An obese woman in no acute distress. VITAL SIGNS: Blood pressure 145/67. NECK: No jugular venous distention. LUNGS: Clear to auscultation. HEART: Regular rate and rhythm, normal S1, S2, no murmurs. ABDOMEN: Mildly distended. EXTREMITIES: Showed moderate bilateral edema. SKIN: Warm and dry. NEUROLOGIC: Nonfocal. VASCULAR: Radial pulses are 2+. LABORATORY DATA: Sodium 139, potassium 3.6, chloride 103, bicarbonate 30, BUN 8 , creatinine 1.64. White blood cell count 12.3, hemoglobin 9.2, hematocrit 29.4 and platelets are 285. Her telemetry monitoring revealed normal sinus rhythm. IMPRESSION: 1. Atrial fibrillation/flutter. 2. Status post gastric leak following bariatric surgery. 3. Renal insufficiency. 4. Obesity. PLAN: This patient developed atrial fibrillation/flutter. She had been in [place] for the past 2 weeks. From a cardiac standpoint, we would maintain the patient on amiodarone. We will discontinue her Cardizem and digoxin. The patient prior to discharge can to be placed back on Xarelto. We will follow this patient with you through her hospitalization. KIMANI
[2017-07-29] MEDS: Meropenem 1 GM, Admixture Fee 1 EACH in Sodium Chloride 0.9% 100 ML IVPB SCH ×2 (17:41→23:52)
[2017-07-29] MEDS: Ondansetron HCl/PF 4 MG/2 ML Vial SLOW IVP PRN (21:39)
[2017-07-29] MEDS: traZODone HCl 150 MG TAB PO SCH (21:39)
[2017-07-30] MEDS: Citalopram 20 MG TAB PO SCH (10:04)
[2017-07-30] MEDS: Meropenem 1 GM, Admixture Fee 1 EACH in Sodium Chloride 0.9% 100 ML IVPB SCH ×2 (10:04→16:32)
[2017-07-30] MEDS: Metoprolol Tartrate 25 MG TAB PO SCH ×2 (10:04→21:18)
[2017-07-30] MEDS ORDERED: Iopamidol 370 76% 50 ML VIAL FS ONE (13:31)
--- NOTE | 2017-07-30 13:46 | PDOC.PN ---
- Subjective Encounter Start Date: 07/30/17 Encounter Start Time: 13:44 Ms. Espinosa is complaining of some abdominal pain. She denies chest pain or shortness of breath. - Objective MAR Reviewed: Yes Vital Signs & Weight: Vital Signs (12 hours) Temp Pulse Resp BP Pulse Ox 07/30/17 12:05 96.7 F L 77 18 136/63 93 L 07/30/17 07:40 96.7 F L 77 18 94 L 07/30/17 07:30 98.4 F 91 20 171/81 H 94 L 07/30/17 04:00 99.0 F 88 20 133/60 93 L Weight Weight 242 lb 4.8 oz I&O: 07/29/17 07/30/17 07/31/17 06:59 06:59 06:59 Intake Total 798 616 Output Total 1125 1000 Balance -327 -384 Result Diagrams: 07/29/17 05:58 07/29/17 05:58 Additional Labs: Accuchecks 07/30/17 11:06 POC Glucose 130 H Phys Exam - Physical Examination HEENT: PERRLA Respiratory: no wheezing, no rales, no rhonchi, clear to auscultation bilateral Cardiovascular: irregular Gastrointestinal: soft, non-tender, positive bowel sounds Musculoskeletal: no edema Dx/Plan (1) Gastric leak Code(s): K91.89 - OTH POSTPROCEDURAL COMPLICATIONS AND DISORDERS OF DGSTV SYS Status: Acute (2) Hypertension Code(s): I10 - ESSENTIAL (PRIMARY) HYPERTENSION Status: Acute (3) Atrial fib/flutter, transient Code(s): JLO1031 - Status: Acute (4) Morbid obesity Code(s): E66.01 - MORBID (SEVERE) OBESITY DUE TO EXCESS CALORIES Status: Acute - Plan * Intra-abdominal infection s/p Gastric sleeve- Repeat CT-scan is pending * ID input is appreciated- she will need Meropenem, length of time to be determined by Dr. Charlton * AFIB- she is now off Cardizem, and her heart rate is stable on Amiodarone * She can re-start Xarelto if CT -scan of abdomen indicates adequate drainage * HTN- blood pressure is stable.
--- NOTE | 2017-07-30 15:39 | CT ---
CT ABDOMEN AND PELVIS WITHOUT CONTRAST: HISTORY: Followup leak or abscess. Gastric bypass. COMPARISON: Upper GI 07/17/17. FINDINGS: The patient did not fully drink all of her contrast. This limits the evaluation. Large left pleural effusion. Small right pleural effusion. Compressive atelectasis at the lung bas e. Esophageal stent is present. There is a drain from the skull of the left upper quadrant of the abdo men which enters into the perigastric collection. This does contain contrast. It is unclear if thi s contrast is new or from the prior procedure. There is a small focus of gas adjacent to a suture line series 2 image 20 which may represent contin ued breakdown. The collection has a 2nd internal and external drainage catheter from the anterior mid abdominal wal l. Small volume free fluid in the pelvis. There is a subcapsular hematoma of the spleen. The skeleton is unremarkable. IMPRESSION: 1. Contrast-containing collection adjacent to the stomach suture line does contain contrast and is concerning for a continued contained perforation. There is gas as well as material within this wal led off collection along with 2 drainage catheters. 2. Large left and small right pleural effusion. 3. New esophageal stent. 4. Small subcapsular hematoma of the spleen. 5. Small volume free fluid in the pelvis. 6. Small focus of gas adjacent to the suture line of the GE junction series 2 image 19-21 may repre sent continued perforation. CODE T POS: WOJCIECH
[2017-07-30] MEDS ORDERED: Hydrocodone-Acetamin 15 ML UDCUP PO PRN (16:37)
[2017-07-30] MEDS: traZODone HCl 150 MG TAB PO SCH (21:19)
[2017-07-31] MEDS: Meropenem 1 GM, Admixture Fee 1 EACH in Sodium Chloride 0.9% 100 ML IVPB SCH ×3 (00:05→17:23)
[2017-07-31 06:00] LABS: Anion Gap 9 mmol/L (10-20); BUN (Urea Nitrogen) 7 mg/dL (9.8-20.1); Calc. Creatinine Clearance 70 mL/min (70-130); Calcium 8.7 mg/dL (7.8-10.44); Carbon Dioxide 33 mmol/L (22-29); Chloride 102 mmol/L (98-107); Estimated GFR-MDRD 36
[2017-07-31] MEDS ORDERED: Acetaminophen 650 MG/20.3 ML UDCUP PO PRN (10:03)
--- NOTE | 2017-07-31 10:12 | PDOC.PN ---
- Subjective Encounter Start Date: 07/31/17 Encounter Start Time: 10:11 Patient seen at bedside. No overnight events, no new complaints. - Objective MAR Reviewed: Yes Vital Signs & Weight: Vital Signs (12 hours) Temp Pulse Resp BP Pulse Ox 07/31/17 07:15 98.4 F 92 14 157/72 H 94 L 07/31/17 04:00 99.2 F 87 18 151/67 H 92 L Weight Weight 242 lb 6.4 oz I&O: 07/30/17 07/31/17 08/01/17 06:59 06:59 06:59 Intake Total 616 600 Output Total 1000 285 Balance -384 315 Result Diagrams: 07/29/17 05:58 07/31/17 04:06 Additional Labs: Accuchecks 07/30/17 11:06 POC Glucose 130 H Phys Exam - Physical Examination Constitutional: NAD HEENT: moist MMs Neck: no JVD Cardiovascular: irregular Gastrointestinal: soft BETTY Drains in place, continued drainage Musculoskeletal: pulses present Neurological: moves all 4 limbs Psychiatric: A&O x 3 Skin: no rash Dx/Plan (1) Gastric leak Code(s): K91.89 - OTH POSTPROCEDURAL COMPLICATIONS AND DISORDERS OF DGSTV SYS Status: Acute (2) Hypertension Code(s): I10 - ESSENTIAL (PRIMARY) HYPERTENSION Status: Chronic (3) Atrial fib/flutter, transient Code(s): RSH9153 - Status: Resolved (4) Morbid obesity Code(s): E66.01 - MORBID (SEVERE) OBESITY DUE TO EXCESS CALORIES Status: Chronic - Plan cont current plan of care, continue antibiotics, social group worker, out of bed/ ambulate * Continue with Meropenem for at least 2 weeks. PICC line to be placed today * Continue with Amiodarone for atrial flutter/fibrillation * Xarelto to be started tonight * Post surgical care per GS. * Monitor BETTY drainage * Transfer to surgical floor.
[2017-07-31 10:15] LABS: PTT 30.5 SEC (22.9-36.1); Prothrombin Time 15.9 SEC (12.0-14.7)
[2017-07-31] MEDS: Metoprolol Tartrate 25 MG TAB PO SCH ×2 (10:41→21:58)
[2017-07-31] MEDS: Citalopram 20 MG TAB PO SCH (10:41)
[2017-07-31] MEDS: Morphine 10 MG/ML VIAL SLOW IVP PRN ×3 (15:40→21:54)
--- NOTE | 2017-07-31 17:33 | PRG ---
DATE OF SERVICE: 07/31/2017 SUBJECTIVE: Ms. Espinosa still complaining of some left upper quadrant pain, although she states it is about the same it has been for the last few weeks. She has tolerated the full liquid diet. She sta birdie she is hungry and she wants eggs if possible. She was then able to do PICC line today, she matt ot lay on the hard table flat to do the fluoroscopy. PHYSICAL EXAMINATION: VITAL SIGNS: T-max 99, blood pressure is 173/90, pulse 80, respirations 18. Drain outputs, drain B is 80 per shift, the other one is about 10 per shift. She is having multiple voids. ABDOMEN: Soft. Wounds are healing well. The BETTY output is purulent. LABORATORY: White cell count is 12, hemoglobin is 9.2, and platelets are 285. Sodium 140, potassiu m 4.2, and creatinine 1.48. ASSESSMENT: Status post stent of gastric sleeve leak. PLAN: Continue full liquids for now, reattempt PICC line tomorrow. If not, she may need a Ayala.
--- NOTE | 2017-07-31 21:19 | PRG ---
DATE OF SERVICE: 07/31/2017 SUBJECTIVE: Feeling better. No headaches. No shortness of breath. Little abdominal tenderness. Still, with a liquid diet and PICC line has been ordered for today. OBJECTIVE: VITAL SIGNS: The temperature max 99.2, BP 170/90, pulse 80, respirations 18, O2 sat 95%. GENERAL: No distress. LUNGS: Clear. HEART: S1, S2, regular rate. ABDOMEN: Soft, not distended or tender. EXTREMITIES: Central line in left upper extremity, moves all extremities equally. LABORATORY DATA AND IMAGING STUDIES: She had a chemistry today with a creatinine of 1.48, which is better than the previous one. The abdomen and pelvis CT was repeated yesterday showed contrast cont aining collection adjacent to the stomach suture line concerning for contained perforation, gas, as well as material within the small collection along 2 drainage catheters. A small subcapsular hematoma of the spleen, a small volume of free fluid in the pelvis, and then a small focus of gas ad jacent to the suture line at GE junction series, 2 images 19-21, may represent continued perforation . ASSESSMENT AND DISCUSSION: Post-sleeve gastrectomy leak with an abscess in the abdominal area, stat us post stent placement, drainage, and currently on a broad-spectrum antimicrobial therapy, also wit h atrial fibrillation and flutter prior ablation, now with supraventricular tachycardia and atrial f ibrillation recurrence, now seems to have converted back to sinus rhythm. The patient to continue w [facility] IV antimicrobial therapy and will have the stent removed in about 6 weeks approximately. Emmy randhawae planning whenever felt to be ready by Dr. Durand and then will take her and train her in our [facility] for home IV antimicrobial therapy.
[2017-07-31] MEDS: Rivaroxaban 15 MG TAB PO SCH (22:02)
[2017-07-31] MEDS: Ondansetron HCl/PF 4 MG/2 ML Vial SLOW IVP PRN (22:07)
[2017-08-01] MEDS: Meropenem 1 GM, Admixture Fee 1 EACH in Sodium Chloride 0.9% 100 ML IVPB SCH ×4 (01:22→23:43)
[2017-08-01] MEDS: traZODone HCl 150 MG TAB PO SCH ×3 (02:17→21:14)
[2017-08-01] MEDS: Morphine 10 MG/ML VIAL SLOW IVP PRN ×6 (02:22→21:18)
[2017-08-01] MEDS: Citalopram 20 MG TAB PO SCH (08:23)
[2017-08-01] MEDS: Metoprolol Tartrate 25 MG TAB PO SCH ×2 (08:24→21:11)
[2017-08-01] MEDS ORDERED: Eucerin (Mineral Oil/Petrolatum,White) 30 gm Jar TOP PRN (11:08)
[2017-08-01] MEDS ORDERED: Sodium Chloride 0.65% Nasal 44 ML BOT EA NARE PRN (11:08)
[2017-08-01] MEDS ORDERED: hydrALAZINE 20 MG/ML VIAL SLOW IVP PRN (11:08)
[2017-08-01] MEDS ORDERED: HYDROcodone/Acetaminophen 5/325 mg Tablet PO PRN (11:08)
[2017-08-01] MEDS ORDERED: Mag-Al 1200 mg/1200 mg/30 ML UDCUP PO PRN (11:08)
[2017-08-01] MEDS ORDERED: Milk Of Magnesia 30 ML UDCUP PO PRN (11:08)
[2017-08-01] MEDS ORDERED: Artificial Tears 18 DROP/0.9 ML EA EYE PRN (11:08)
[2017-08-01] MEDS ORDERED: Temazepam 15 MG CAP PO PRN (11:08)
[2017-08-01] MEDS ORDERED: Diabetic Tussin 200 MG/10 ML UDCUP PO PRN (11:08)
[2017-08-01] MEDS ORDERED: Ondansetron ODT 4 MG TAB PO PRN (11:08)
[2017-08-01] MEDS ORDERED: Loratadine 10 MG TAB PO PRN (11:08)
--- NOTE | 2017-08-01 11:09 | PDOC.PN ---
- Subjective Encounter Start Date: 08/01/17 Encounter Start Time: 07:50 -: old records requested/rev pt can not lie on her back so PICC was not possible - Objective MAR Reviewed: Yes Vital Signs & Weight: Vital Signs (12 hours) Temp Pulse Resp BP BP Pulse Ox 08/01/17 08:59 98.7 F 82 15 92 L 08/01/17 08:38 98.7 F 82 15 166/81 H 92 L 08/01/17 04:00 98.6 F 83 18 149/73 H 94 L 08/01/17 00:00 98.8 F 74 18 142/74 H 92 L Weight Weight 256 lb 8 oz I&O: 07/31/17 08/01/17 08/02/17 06:59 06:59 06:59 Intake Total 600 840 Output Total 285 270 Balance 315 -270 840 Result Diagrams: 07/29/17 05:58 07/31/17 04:06 Phys Exam - Physical Examination Constitutional: NAD HEENT: PERRLA, moist MMs, sclera anicteric Neck: no JVD, supple Respiratory: no wheezing, no rales, no rhonchi Cardiovascular: RRR, no significant murmur, no rub Gastrointestinal: soft, non-tender, no distention, positive bowel sounds 2 drain+ Musculoskeletal: no edema, pulses present Neurological: non-focal, normal sensation Lymphatic: no nodes Psychiatric: normal affect, A&O x 3 Skin: no rash, normal turgor Dx/Plan (1) Acute kidney failure Status: Acute (2) Gastric leak Code(s): K91.89 - OTH POSTPROCEDURAL COMPLICATIONS AND DISORDERS OF DGSTV SYS Status: Acute (3) Anemia, normocytic normochromic Code(s): D64.9 - ANEMIA, UNSPECIFIED Status: Chronic (4) Hypertension Code(s): I10 - ESSENTIAL (PRIMARY) HYPERTENSION Status: Chronic (5) Morbid obesity Code(s): E66.01 - MORBID (SEVERE) OBESITY DUE TO EXCESS CALORIES Status: Chronic (6) Atrial fib/flutter, transient Code(s): PDI9624 - Status: Resolved - Plan cont current plan of care, continue antibiotics, social media manager * continue current IV antibiotics, meropenam * PICC is not possible, so ? Ayala catheter * drain care * medication reviewed as below * symptomatic treatment. Review of Systems - Review of Systems ENT: negative: Ear Pain, Ear Discharge, Nose Pain, Nose Discharge, Nose Congestion, Mouth Pain, Mouth Swelling, Throat Pain, Throat Swelling, Other Respiratory: negative: Cough, Dry, Shortness of Breath, Hemoptysis, SOB with Excertion, Pleuritic Pain, Sputum, Wheezing Cardiovascular: negative: Chest Pain, Palpitations, Orthopnea, Paroxysmal Noc. Dyspnea, Edema, Light Headedness, Other Gastrointestinal: negative: Nausea, Vomiting, Abdominal Pain, Diarrhea, Constipation, Melena, Hematochezia, Other Genitourinary: negative: Dysuria, Frequency, Incontinence, Hematuria, Retention , Other Musculoskeletal: negative: Neck Pain, Shoulder Pain, Arm Pain, Back Pain, Hand Pain, Leg Pain, Foot Pain, Other - Medications/Allergies Allergies/Adverse Reactions: Allergies Allergy/AdvReac Type Severity Reaction Status Date / Time No Known Allergies Allergy Verified 07/16/17 14:20 Medications: Current Medications Acetaminophen (Tylenol Elixir) 650 mg PO Q6H PRN PRN Reason: Pain Last Admin: 07/31/17 10:49 Dose: 650 mg Acetaminophen/Codeine Phosphate (Tylenol/Codeine Elixir) 10 ml PO Q4H PRN PRN Reason: Pain Amiodarone HCl (Cordarone) 200 mg PO BID [facility] Last Admin: 08/01/17 08:24 Dose: 200 mg Bisacodyl (Dulcolax) 10 mg [place] Q8H PRN PRN Reason: Constipation Citalopram Hydrobromide (Celexa) 40 mg PO DAILY [facility] Last Admin: 08/01/17 08:23 Dose: 40 mg Meropenem 1 gm/ Miscellaneous Medication 1 each/ Sodium Chloride 100 mls @ 200 mls/hr IVPB 0800,1600,2359 [facility] Last Admin: 08/01/17 09:32 Dose: 100 mls Metoprolol Tartrate (Lopressor) 50 mg PO BID [facility] Last Admin: 08/01/17 08:24 Dose: 50 mg Morphine Sulfate (Morphine Sulfate) 4 mg SLOW IVP Q1H PRN PRN Reason: Moderate to Severe Pain (6-10) Last Admin: 08/01/17 09:34 Dose: 4 mg Ondansetron HCl (Zofran) 4 mg SLOW IVP Q4H PRN PRN Reason: Nausea/Vomiting Last Admin: 07/31/17 22:07 Dose: 4 mg Pantoprazole Sodium (Protonix) 40 mg PO DAILY [facility] Last Admin: 08/01/17 08:23 Dose: 40 mg Rivaroxaban (Xarelto) 15 mg PO HS [facility] Last Admin: 07/31/17 22:02 Dose: Not Given Sodium Chloride (Flush - Normal Saline) 10 ml IVF Q12HR [facility] Last Admin: 08/01/17 08:24 Dose: 10 ml Sodium Chloride (Flush - Normal Saline) 10 ml IVF PRN PRN PRN Reason: Saline Flush Trazodone HCl (Desyrel) 150 mg PO HS [facility] Last Admin: 08/01/17 02:17 Dose: Not Given
[2017-08-01] MEDS: Acetaminophen/Codeine Oral Solution PO PRN ×2 (12:40→18:40)
--- NOTE | 2017-08-01 13:37 | RAD ---
UPRIGHT PORTABLE CHEST ONE VIEW: HISTORY: A 62-year-old female with a history of pleural effusion. COMPARISON: 07/16/2017 and prior abdomen and pelvis CT scan from 07/30/2017. FINDINGS: Left subclavian catheter in place. Status post ACDF changes of the lower cervical spine. There is persistent left-sided pleural effusion and small right-sided pleural effusion, showing little change from the prior CT, although these effusion changes are certainly more prominent than on 07/16/2017 study. No confluent pneumonia or overt edema. IMPRESSION: Bilateral pleural effusions, greater on the left side. Consider follow-up examination for clearing or stability. POS: WOJCIECH
--- NOTE | 2017-08-01 15:16 | PRG ---
DATE OF SERVICE: 08/01/2017 SUBJECTIVE: Ms. Espinosa has no new complaints today. She is still complaining of some left upper quad rant pain, although it is the same as it was before. I have written for Tylenol with Codeine, becau se the Tylenol with hydrocodone caused nightmares. She has not tried it yet. Her shortness of irineo th is fine if she is sitting up. She has known left pleural effusion. OBJECTIVE: VITAL SIGNS: She is afebrile. Sats are 91%-92% on 2 liters nasal cannula, multiple voids. She has had a few bowel movements today. JPs have put out a total of 170 in the last 24 hours that is puru lent. ABDOMEN: Soft. Wounds are healing well. LABORATORY DATA: Sodium 140, potassium 4.2, creatinine 1.48. Chest x-ray shows continued left grea ter than right pleural effusion. ASSESSMENT: Status post leak after sleeve, had stent placed by Dr. Brown, now drained, slow impro vement. PLAN: Not quite ready for discharge yet. Continue pureed diet, question diurese further for this l eft-sided pleural effusion.
[2017-08-01] MEDS ORDERED: Heparin 1,000 UNITS/ML VIAL ONE (16:24)
--- NOTE | 2017-08-01 18:19 | SPC ---
ULTRASOUND GUIDED RIGHT UPPER EXTREMITY PICC LINE PLACEMENT 08/01/17 HISTORY: Abdominal infection post gastric surgery. TECHNIQUE: After informed consent was obtained, patient was placed on the angiography table in the supine posit ion. Right upper extremity was meticulously prepped and draped in the usual sterile fashion. Skin an d subcutaneous tissues were infiltrated with buffered 1% lidocaine for local anesthesia at the inten ded puncture site. Utilizing concurrent real time ultrasound guidance, the right brachial vein is ac cessed utilizing micropuncture technique and concurrent real time ultrasound guidance. 5 [place] peel away sheath was placed. Prior to placement of the sheath, the guide wire was advanced into the IVC confirming placement of venous system. The right upper extremity PICC line was cut the appropriate l ength and placed over the guide wire with tip position overlying the distal SVC. Guide wire and peel away sheath were removed. The catheter was accessed and aspirated/flushed easily. Patient tolerated the procedure well without immediate complication. FLUOROSCOPY: Total fluoroscopy time is 0.4 minutes with total dose of 2757 mGy*cm2. FINDINGS: Technically successful placement of single lumen 5 [place] 39 cm PICC line via the right brachial vei n. Tip of the catheter overlies the distal SVC. Final spot fluoroscopic image of catheter placement obtained. IMPRESSION: Technically successful ultrasound guided right upper extremity PICC line placement. POS: WOJCIECH
[2017-08-01] MEDS: Rivaroxaban 15 MG TAB PO SCH (21:10)
[2017-08-01] MEDS: Famotidine 20 MG TAB PO SCH (21:11)
[2017-08-02] MEDS: Morphine 10 MG/ML VIAL SLOW IVP PRN ×3 (03:14→20:18)
[2017-08-02] MEDS: Acetaminophen/Codeine Oral Solution PO PRN (06:15)
[2017-08-02 06:33] LABS: #Eosinphils 0.1 thou/uL (0.0-0.7); #Lymphocytes 1.2 thou/uL (1.20-3.40); #Monocytes 1.1 thou/uL (0.11-0.59); #Neutrophils 5.1 thou/uL (1.40-6.50); %Basophils 0.2 % (0.0-1.0); %Eosinophils 1.8 % (0.0-10.0); %Lymphocytes 15.7 % (21.0-51.0); %Monocytes 14.8 % (0.0-10.0); Mean Platelet Volume 7.4 fL (7.4-10.4); Red Blood Cell (RBC) Count 3.16 mill/uL (4.20-5.40); White Blood Cell (WBC) Count 7.5 thou/uL (4.8-10.8)
[2017-08-02 06:54] LABS: ALT (SGPT) 16 U/L (8-55); AST (SGOT) 21 U/L (5-34); Alkaline Phosphatase 88 U/L (40-150); Anion Gap 8 mmol/L (10-20); BUN (Urea Nitrogen) 7 mg/dL (9.8-20.1); Bilirubin, Total 0.4 mg/dL (0.2-1.2); Calc. Creatinine Clearance 78 mL/min (70-130); Calcium 8.7 mg/dL (7.8-10.44); Carbon Dioxide 35 mmol/L (22-29); Chloride 100 mmol/L (98-107); Estimated GFR-MDRD 38; Globulin 3.9 g/dL (2.4-3.5); Protein, Total 6.6 g/dL (6.0-8.3)
[2017-08-02] MEDS: Citalopram 20 MG TAB PO SCH (08:34)
[2017-08-02] MEDS: Meropenem 1 GM, Admixture Fee 1 EACH in Sodium Chloride 0.9% 100 ML IVPB SCH ×2 (08:34→16:26)
[2017-08-02] MEDS: Metoprolol Tartrate 25 MG TAB PO SCH ×2 (08:35→21:42)
[2017-08-02] MEDS: Famotidine 20 MG TAB PO SCH ×2 (08:35→21:42)
[2017-08-02] MEDS ORDERED: Furosemide 20 MG/2 ML VIAL SLOW IVP SCH (09:00)
--- NOTE | 2017-08-02 10:53 | PDOC.PN ---
- Subjective Encounter Start Date: 08/02/17 Encounter Start Time: 07:50 c/o dyspnea, no cough, no fever, picc line placed. - Objective MAR Reviewed: Yes Vital Signs & Weight: Vital Signs (12 hours) Temp Pulse Resp BP Pulse Ox 08/02/17 08:04 98.8 F 81 16 156/63 H 95 08/02/17 04:26 98.8 F 81 17 164/73 H 92 L Weight Weight 257 lb 11.2 oz I&O: 08/01/17 08/02/17 08/03/17 06:59 06:59 06:59 Intake Total 840 Output Total 270 310 Balance -270 530 Result Diagrams: 08/02/17 06:05 08/02/17 06:05 Phys Exam - Physical Examination Constitutional: NAD HEENT: PERRLA, moist MMs, sclera anicteric Neck: no JVD, supple Respiratory: no wheezing, no rales, no rhonchi reduced air entry at left base Cardiovascular: RRR, no significant murmur, no rub Gastrointestinal: soft, non-tender, no distention, positive bowel sounds [address] Musculoskeletal: no edema, pulses present Neurological: non-focal, normal sensation, moves all 4 limbs Psychiatric: normal affect, A&O x 3 Skin: no rash, normal turgor Dx/Plan (1) Acute kidney failure Status: Acute (2) Gastric leak Code(s): K91.89 - OTH POSTPROCEDURAL COMPLICATIONS AND DISORDERS OF DGSTV SYS Status: Acute (3) Anemia, normocytic normochromic Code(s): D64.9 - ANEMIA, UNSPECIFIED Status: Chronic (4) Hypertension Code(s): I10 - ESSENTIAL (PRIMARY) HYPERTENSION Status: Chronic (5) Morbid obesity Code(s): E66.01 - MORBID (SEVERE) OBESITY DUE TO EXCESS CALORIES Status: Chronic - Plan cont current plan of care, continue antibiotics, social director * renal function continue to improve, today will give lasix 20 mg iv bid for left pleural effusion and dyspnea * continue IV antibiotics as per below, on meropenam * medication reviewed as below * symptomatic treatment. Review of Systems - Review of Systems Respiratory: Shortness of Breath. negative: Cough, Dry, Hemoptysis, SOB with Excertion, Pleuritic Pain, Sputum, Wheezing Cardiovascular: negative: Chest Pain, Palpitations, Orthopnea, Paroxysmal Noc. Dyspnea, Edema, Light Headedness, Other Gastrointestinal: negative: Nausea, Vomiting, Abdominal Pain, Diarrhea, Constipation, Melena, Hematochezia, Other Genitourinary: negative: Dysuria, Frequency, Incontinence, Hematuria, Retention , Other Musculoskeletal: negative: Neck Pain, Shoulder Pain, Arm Pain, Back Pain, Hand Pain, Leg Pain, Foot Pain, Other Skin: negative: Rash, Lesions, Isa[place], Bruising, Other - Medications/Allergies Allergies/Adverse Reactions: Allergies Allergy/AdvReac Type Severity Reaction Status Date / Time No Known Allergies Allergy Verified 07/16/17 14:20 Medications: Current Medications Acetaminophen (Tylenol) 650 mg PO Q4H PRN PRN Reason: Headache/Fever or Mild Pain Acetaminophen/Codeine Phosphate (Tylenol/Codeine Elixir) 10 ml PO Q4H PRN PRN Reason: Pain Last Admin: 08/02/17 06:15 Dose: 10 ml Hydrocodone Bitart/Acetaminophen ([place] 5/325) 1 tab PO Q4H PRN PRN Reason: Moderate Pain (4-6) Al Hydroxide/Mg Hydroxide (Maalox) 15 ml PO Q4H PRN PRN Reason: Heartburn or Indigestion Amiodarone HCl (Cordarone) 200 mg PO BID [facility] Last Admin: 08/02/17 08:35 Dose: 200 mg Artificial Tears (Tears Naturale) 0 drop EA EYE PRN PRN PRN Reason: Dry Eyes Bisacodyl (Dulcolax) 10 mg [place] Q8H PRN PRN Reason: Constipation Citalopram Hydrobromide (Celexa) 40 mg PO DAILY [facility] Last Admin: 08/02/17 08:34 Dose: 40 mg Famotidine (Pepcid) 20 mg PO BID [facility] Last Admin: 08/02/17 08:35 Dose: 20 mg Furosemide (Lasix) 20 mg SLOW IVP 0600,1400 [facility] Furosemide (Lasix) 20 mg SLOW IVP 0900 [facility] Stop: 08/02/17 11:00 Last Admin: 08/02/17 08:43 Dose: 20 mg Guaifenesin (Robitussin Sf) 200 mg PO Q4H PRN PRN Reason: Cough Hydralazine HCl (Apresoline) 10 mg SLOW IVP Q4H PRN PRN Reason: Systolic BP > 180 Meropenem 1 gm/ Miscellaneous Medication 1 each/ Sodium Chloride 100 mls @ 200 mls/hr IVPB 0800,1600,2359 [facility] Last Admin: 08/02/17 08:34 Dose: 100 mls Loratadine (Claritin) 10 mg PO DAILYPRN PRN PRN Reason: Sinus Symptoms Magnesium Hydroxide (Milk Of Magnesium) 30 ml PO DAILYPRN PRN PRN Reason: Constipation Metoprolol Tartrate (Lopressor) 50 mg PO BID [facility] Last Admin: 08/02/17 08:35 Dose: 50 mg Mineral Oil/White Petrolatum (Eucerin Cream) 0 gm TOP BIDPRN PRN PRN Reason: Dry Skin Morphine Sulfate (Morphine Sulfate) 4 mg SLOW IVP Q1H PRN PRN Reason: Moderate to Severe Pain (6-10) Last Admin: 08/02/17 08:43 Dose: 4 mg Ondansetron HCl (Zofran) 4 mg SLOW IVP Q4H PRN PRN Reason: Nausea/Vomiting Last Admin: 07/31/17 22:07 Dose: 4 mg Ondansetron HCl (Zofran Odt) 4 mg PO Q6H PRN PRN Reason: Nausea/Vomiting Pantoprazole Sodium (Protonix) 40 mg PO DAILY [facility] Last Admin: 08/02/17 08:34 Dose: 40 mg Rivaroxaban (Xarelto) 15 mg PO HS [facility] Last Admin: 08/01/17 21:10 Dose: 15 mg Sodium Chloride (Flush - Normal Saline) 10 ml IVF Q12HR [facility] Last Admin: 08/02/17 08:55 Dose: 10 ml Sodium Chloride (Flush - Normal Saline) 10 ml IVF PRN PRN PRN Reason: Saline Flush Last Admin: 08/02/17 03:15 Dose: 10 ml Sodium Chloride ([place] 0.65%) 0 ml EA NARE QIDPRN PRN PRN Reason: Nasal Congestion Temazepam (Restoril) 15 mg PO HSPRN PRN PRN Reason: Insomnia Trazodone HCl (Desyrel) 150 mg PO HS [facility] Last Admin: 08/01/17 21:14 Dose: Not Given
--- NOTE | 2017-08-02 13:45 | PRG ---
DATE OF SERVICE: 08/02/2017 SUBJECTIVE: Ms. Espinosa is feeling better today. She feels like she is continuing to slowly improve. She is afebrile with normal vital signs. Her blood pressure has been mildly elevated in the 150 to 160 systolic range. Her BETTY's yesterday put out 80 and 230, which is about what they have been putt ing out for the past few days. Her white count is normal at 7.5. Her BUN and creatinine are down t o 7 and 1.42. She is tolerating her pureed diet, although she is not eating very much and she does not like the way that it taste. She is having bowel movements, but not passing much gas and still f eels somewhat distended. ASSESSMENT AND PLAN: Status post sleeve leak after a bleed on Xarelto, which may have caused gastri c outlet obstruction. She was stented and drained and tolerating her pureed diet. We will advance her to a soft bariatric diet and follow her clinical condition. She is going to learn drain care. She did tolerate having her PICC line placed and is breathing better after a dose of Lasix. Her jeanna tral line has been removed. She will likely be discharged home with drains and IV antibiotics if sh marino tolerates her diet.
[2017-08-02] MEDS: Furosemide 20 MG/2 ML VIAL SLOW IVP SCH (14:29)
[2017-08-02] MEDS: Ondansetron HCl/PF 4 MG/2 ML Vial SLOW IVP PRN (16:25)
--- NOTE | 2017-08-02 18:25 | PDOC.CTH ---
Cardiology Progress Note - Subjective No new issues. - Objective Vital Signs Temp Pulse Resp BP Pulse Ox 08/02/17 16:00 99 F 80 16 153/83 H 93 L 08/02/17 14:17 80 16 133/77 94 L 08/02/17 12:00 98.7 F 70 16 167/88 H 96 08/02/17 08:20 98.8 F 81 16 08/02/17 08:04 98.8 F 81 16 156/63 H 95 Weight 257 lb 11.2 oz 08/01/17 08/02/17 08/03/17 06:59 06:59 06:59 Intake Total 840 Output Total 270 310 Balance -270 530 - Physical Examination General/Neuro: NAD Neck: no JVD present Lungs: unlabored respirations Heart: other: (irreg) Abdomen: NT/ND Extremities: + edema B (trace) - Labs Result Diagrams: 08/02/17 06:05 08/02/17 06:05 - Assessment/Plan 1. paroxysmal afib 2. S/P gastric bypass. 3. s/p sleeve leak due to a bleed while on xarelto. PLAN: - Continue current meds. - No new recs.
[2017-08-02] MEDS ORDERED: traMADol HCl 50 MG TAB PO PRN ×2 (18:39)
[2017-08-02] MEDS: Rivaroxaban 15 MG TAB PO SCH (21:42)
[2017-08-02] MEDS: traZODone HCl 150 MG TAB PO SCH (21:42)
[2017-08-02] MEDS: Acetaminophen 325 MG TAB PO PRN (21:43)
[2017-08-03] MEDS: Meropenem 1 GM, Admixture Fee 1 EACH in Sodium Chloride 0.9% 100 ML IVPB SCH ×3 (00:42→16:45)
[2017-08-03] MEDS: Morphine 10 MG/ML VIAL SLOW IVP PRN (00:45)
[2017-08-03 05:13] LABS: Anion Gap 9 mmol/L (10-20); BUN (Urea Nitrogen) 8 mg/dL (9.8-20.1); Calc. Creatinine Clearance 77 mL/min (70-130); Calcium 8.6 mg/dL (7.8-10.44); Carbon Dioxide 37 mmol/L (22-29); Chloride 99 mmol/L (98-107); Estimated GFR-MDRD 37
[2017-08-03] MEDS: Furosemide 20 MG/2 ML VIAL SLOW IVP SCH ×2 (06:18→14:30)
[2017-08-03] MEDS: Citalopram 20 MG TAB PO SCH (09:08)
[2017-08-03] MEDS: Famotidine 20 MG TAB PO SCH ×2 (09:09→21:47)
[2017-08-03] MEDS: Metoprolol Tartrate 25 MG TAB PO SCH ×2 (09:09→21:47)
--- NOTE | 2017-08-03 10:14 | RAD ---
TWO VIEW CHEST: COMPARISON: 08/01/17. INDICATION: Effusion, followup. FINDINGS: There is a moderate left pleural effusion redemonstrated. Slight clearing of right basilar density. Removal of prior left subclavian catheter with placement of a right PICC line. IMPRESSION: 1. Redemonstration of moderate left effusion. Slight interval clearing of right basilar opacity wi th mild residua remaining. 2. Additional details as described above. POS: [email or web address]
--- NOTE | 2017-08-03 12:38 | PDOC.PN ---
- Subjective Encounter Start Date: 08/03/17 Encounter Start Time: 10:00 Patient seen and examined. No new complaints. No overnight events - Objective MAR Reviewed: Yes Vital Signs & Weight: Vital Signs (12 hours) Temp Pulse Resp BP Pulse Ox 08/03/17 11:55 99.1 F 77 16 161/87 H 94 L 08/03/17 08:14 99.0 F 83 16 146/83 H 94 L 08/03/17 08:00 99.0 F 83 16 08/03/17 04:30 99.0 F 80 18 131/76 94 L Weight Weight 247 lb 1.6 oz I&O: 08/02/17 08/03/17 08/04/17 06:59 06:59 06:59 Intake Total 840 880 Output Total 310 450 Balance 530 430 Result Diagrams: 08/02/17 06:05 08/03/17 04:43 Radiology Reviewed by me: Yes (chest xray) Phys Exam - Physical Examination Constitutional: NAD HEENT: PERRLA, moist MMs, sclera anicteric Neck: no JVD, supple Respiratory: no wheezing, no rales, no rhonchi reduced air entry at left base Cardiovascular: RRR, no significant murmur, no rub Gastrointestinal: soft, non-tender, no distention, positive bowel sounds drain in place Musculoskeletal: no edema, pulses present Neurological: non-focal, normal sensation Lymphatic: no nodes Psychiatric: normal affect Skin: no rash, normal turgor Dx/Plan (1) Acute kidney failure Status: Acute (2) Gastric leak Code(s): K91.89 - OTH POSTPROCEDURAL COMPLICATIONS AND DISORDERS OF DGSTV SYS Status: Acute (3) Anemia, normocytic normochromic Code(s): D64.9 - ANEMIA, UNSPECIFIED Status: Chronic (4) Hypertension Code(s): I10 - ESSENTIAL (PRIMARY) HYPERTENSION Status: Chronic (5) Morbid obesity Code(s): E66.01 - MORBID (SEVERE) OBESITY DUE TO EXCESS CALORIES Status: Chronic (6) Pleural effusion, left Code(s): J90 - PLEURAL EFFUSION, NOT ELSEWHERE CLASSIFIED Status: Acute (7) Paroxysmal atrial fibrillation Code(s): I48.0 - PAROXYSMAL ATRIAL FIBRILLATION Status: Chronic - Plan cont current plan of care, continue antibiotics, criminal justice social worker * continue meropenam * continue lasix today * medication reviewed as below * symptomatic treatment * social work for IV antibiotics arrangement * surgeon following. Review of Systems - Review of Systems ENT: negative: Ear Pain, Ear Discharge, Nose Pain, Nose Discharge, Nose Congestion, Mouth Pain, Mouth Swelling, Throat Pain, Throat Swelling, Other Respiratory: negative: Cough, Dry, Shortness of Breath, Hemoptysis, SOB with Excertion, Pleuritic Pain, Sputum, Wheezing Cardiovascular: negative: Chest Pain, Palpitations, Orthopnea, Paroxysmal Noc. Dyspnea, Edema, Light Headedness, Other Gastrointestinal: negative: Nausea, Vomiting, Abdominal Pain, Diarrhea, Constipation, Melena, Hematochezia, Other Genitourinary: negative: Dysuria, Frequency, Incontinence, Hematuria, Retention , Other Musculoskeletal: negative: Neck Pain, Shoulder Pain, Arm Pain, Back Pain, Hand Pain, Leg Pain, Foot Pain, Other - Medications/Allergies Allergies/Adverse Reactions: Allergies Allergy/AdvReac Type Severity Reaction Status Date / Time No Known Allergies Allergy Verified 07/16/17 14:20 Medications: Current Medications Acetaminophen (Tylenol) 650 mg PO Q4H PRN PRN Reason: Headache/Fever or Mild Pain Last Admin: 08/02/17 21:43 Dose: 650 mg Acetaminophen/Codeine Phosphate (Tylenol/Codeine Elixir) 10 ml PO Q4H PRN PRN Reason: Pain Last Admin: 08/02/17 06:15 Dose: 10 ml Hydrocodone Bitart/Acetaminophen ([place] 5/325) 1 tab PO Q4H PRN PRN Reason: Moderate Pain (4-6) Al Hydroxide/Mg Hydroxide (Maalox) 15 ml PO Q4H PRN PRN Reason: Heartburn or Indigestion Amiodarone HCl (Cordarone) 200 mg PO BID [facility] Last Admin: 08/03/17 09:09 Dose: 200 mg Artificial Tears (Tears Naturale) 0 drop EA EYE PRN PRN PRN Reason: Dry Eyes Bisacodyl (Dulcolax) 10 mg [place] Q8H PRN PRN Reason: Constipation Citalopram Hydrobromide (Celexa) 40 mg PO DAILY [facility] Last Admin: 08/03/17 09:08 Dose: 40 mg Famotidine (Pepcid) 20 mg PO BID [facility] Last Admin: 08/03/17 09:09 Dose: 20 mg Furosemide (Lasix) 20 mg SLOW IVP 0600,1400 [facility] Last Admin: 08/03/17 06:18 Dose: Not Given Guaifenesin (Robitussin Sf) 200 mg PO Q4H PRN PRN Reason: Cough Hydralazine HCl (Apresoline) 10 mg SLOW IVP Q4H PRN PRN Reason: Systolic BP > 180 Meropenem 1 gm/ Miscellaneous Medication 1 each/ Sodium Chloride 100 mls @ 200 mls/hr IVPB 0800,1600,2359 [facility] Last Admin: 08/03/17 09:03 Dose: 100 mls Loratadine (Claritin) 10 mg PO DAILYPRN PRN PRN Reason: Sinus Symptoms Magnesium Hydroxide (Milk Of Magnesium) 30 ml PO DAILYPRN PRN PRN Reason: Constipation Metoprolol Tartrate (Lopressor) 50 mg PO BID [facility] Last Admin: 08/03/17 09:09 Dose: 50 mg Mineral Oil/White Petrolatum (Eucerin Cream) 0 gm TOP BIDPRN PRN PRN Reason: Dry Skin Morphine Sulfate (Morphine Sulfate) 4 mg SLOW IVP Q1H PRN PRN Reason: Moderate to Severe Pain (6-10) Last Admin: 08/03/17 00:45 Dose: 4 mg Ondansetron HCl (Zofran) 4 mg SLOW IVP Q4H PRN PRN Reason: Nausea/Vomiting Last Admin: 08/02/17 16:25 Dose: 4 mg Ondansetron HCl (Zofran Odt) 4 mg PO Q6H PRN PRN Reason: Nausea/Vomiting Pantoprazole Sodium (Protonix) 40 mg PO DAILY [facility] Last Admin: 08/03/17 09:09 Dose: 40 mg Rivaroxaban (Xarelto) 15 mg PO HS [facility] Last Admin: 08/02/17 21:42 Dose: 15 mg Sodium Chloride (Flush - Normal Saline) 10 ml IVF Q12HR [facility] Last Admin: 08/03/17 09:10 Dose: 10 ml Sodium Chloride (Flush - Normal Saline) 10 ml IVF PRN PRN PRN Reason: Saline Flush Last Admin: 08/03/17 00:46 Dose: 10 ml Sodium Chloride ([employer] Nasal [place] 0.65%) 0 ml EA NARE QIDPRN PRN PRN Reason: Nasal Congestion Temazepam (Restoril) 15 mg PO HSPRN PRN PRN Reason: Insomnia Tramadol HCl (Ultram) 50 mg PO Q6H PRN PRN Reason: PAIN SCALE 1-5 Last Admin: 08/03/17 12:17 Dose: 50 mg Tramadol HCl (Ultram) 100 mg PO Q6H PRN PRN Reason: PAIN SCALE 6-10 Trazodone HCl (Desyrel) 150 mg PO HS [facility] Last Admin: 08/02/17 21:42 Dose: 150 mg
[2017-08-03] MEDS: Acetaminophen 325 MG TAB PO PRN (14:45)
--- NOTE | 2017-08-03 17:10 | PDOC.CTH ---
Cardiology Progress Note - Subjective No new issues. - Objective Vital Signs Temp Pulse Resp BP Pulse Ox 08/03/17 16:48 98.8 F 80 15 164/85 H 91 L 08/03/17 11:55 99.1 F 77 16 161/87 H 94 L 08/03/17 08:14 99.0 F 83 16 146/83 H 94 L 08/03/17 08:00 99.0 F 83 16 Weight 247 lb 1.6 oz 08/02/17 08/03/17 08/04/17 06:59 06:59 06:59 Intake Total 840 880 Output Total 310 450 Balance 530 430 - Physical Examination General/Neuro: alert & oriented x3, NAD Neck: no JVD present Lungs: unlabored respirations Heart: RRR Abdomen: NT/ND Extremities: + edema B (1+) - Labs Result Diagrams: 08/02/17 06:05 08/03/17 04:43 - Assessment/Plan 1. paroxysmal afib 2. S/P gastric bypass. 3. s/p sleeve leak due to a bleed while on xarelto. PLAN: - Continue current meds. - No new recs.
[2017-08-03] MEDS: Rivaroxaban 15 MG TAB PO SCH (21:47)
[2017-08-03] MEDS: traZODone HCl 150 MG TAB PO SCH (21:48)
[2017-08-04] MEDS: Meropenem 1 GM, Admixture Fee 1 EACH in Sodium Chloride 0.9% 100 ML IVPB SCH ×2 (00:16→09:04)
[2017-08-04] MEDS: Furosemide 20 MG/2 ML VIAL SLOW IVP SCH ×2 (08:36→13:17)
--- NOTE | 2017-08-04 08:55 | PDOC.PN ---
- Subjective Encounter Start Date: 08/04/17 Encounter Start Time: 08:54 Subjective: denies any abdominal pain and eager to go home. -: cleared by primary team for Dc today -: discussed plan - Objective MAR Reviewed: Yes Vital Signs & Weight: Vital Signs (12 hours) Temp Pulse Resp BP Pulse Ox 08/04/17 04:00 98.9 F 82 16 169/89 H 94 L 08/04/17 00:00 98.6 F 74 95 H 159/84 H 95 Weight Weight 240 lb 2.992 oz I&O: 08/03/17 08/04/17 08/05/17 06:59 06:59 06:59 Intake Total 880 840 Output Total 450 790 Balance 430 50 Result Diagrams: 08/02/17 06:05 08/03/17 04:43 Additional Labs: Microbiology 07/16/17 13:17 Abdomen - Abscess Bacterial Culture - Final 07/16/17 13:17 Abdomen - Abscess Anaerobic Culture - Final Citrobacter freundii Enterobacter cloacae complex Anaerobic Gram Negative Phuc Anaerobic Gram Negative Phuc#2 Anaerobic Gram Negative Phuc#3 07/16/17 10:45 Venous blood - Left Arm Blood Culture - Final NO GROWTH IN 5 DAYS 07/16/17 10:25 Venous blood - Left Foot Blood Culture - Final NO GROWTH IN 5 DAYS Laboratory Tests 07/29/17 07/29/17 07/31/17 05:58 05:58 04:06 WBC 12.3 H Creatinine 1.64 H 1.48 H 08/02/17 08/02/17 08/03/17 06:05 06:05 04:43 WBC 7.5 Creatinine 1.42 H 1.44 H Phys Exam - Physical Examination Constitutional: NAD HEENT: PERRLA, moist MMs, sclera anicteric, oral pharynx no lesions Neck: no nodes, no JVD, supple, full ROM Respiratory: no wheezing, no rales, no rhonchi, clear to auscultation bilateral Cardiovascular: RRR, no significant murmur Gastrointestinal: soft, non-tender, no distention, positive bowel sounds Musculoskeletal: no edema, pulses present Neurological: non-focal, normal sensation, moves all 4 limbs Psychiatric: normal affect, A&O x 3 Skin: no rash Dx/Plan (1) Acute kidney failure Status: Acute (2) Gastric leak Code(s): K91.89 - OTH POSTPROCEDURAL COMPLICATIONS AND DISORDERS OF DGSTV SYS Status: Acute (3) Pleural effusion, left Code(s): J90 - PLEURAL EFFUSION, NOT ELSEWHERE CLASSIFIED Status: Acute (4) Anemia, normocytic normochromic Code(s): D64.9 - ANEMIA, UNSPECIFIED Status: Chronic (5) Hypertension Code(s): I10 - ESSENTIAL (PRIMARY) HYPERTENSION Status: Chronic (6) Paroxysmal atrial fibrillation Code(s): I48.0 - PAROXYSMAL ATRIAL FIBRILLATION Status: Chronic - Plan DVT proph w/SCDs pt encouraged to continue to take lasix.Pleural effusion still there. -: Ok to DC. will f/u w GS as an OP. -: meds reviewed. * . Review of Systems - Review of Systems Constitutional: negative: Fever, Chills, Sweats, Weakness, Malaise, Other Respiratory: negative: Cough, Dry, Shortness of Breath, Hemoptysis, SOB with Excertion, Pleuritic Pain, Sputum, Wheezing Cardiovascular: negative: Chest Pain, Palpitations, Orthopnea, Paroxysmal Noc. Dyspnea, Edema, Light Headedness, Other Gastrointestinal: negative: Nausea, Vomiting, Abdominal Pain, Diarrhea, Constipation, Melena, Hematochezia, Other Genitourinary: negative: Dysuria, Frequency, Incontinence, Hematuria, Retention , Other Musculoskeletal: negative: Neck Pain, Shoulder Pain, Arm Pain, Back Pain, Hand Pain, Leg Pain, Foot Pain, Other Neurological: negative: Weakness, Numbness, Incoordination, Change in Speech, Confusion, Seizures, Other - Medications/Allergies Allergies/Adverse Reactions: Allergies Allergy/AdvReac Type Severity Reaction Status Date / Time No Known Allergies Allergy Verified 07/16/17 14:20 Medications: Current Medications Acetaminophen (Tylenol) 650 mg PO Q4H PRN PRN Reason: Headache/Fever or Mild Pain Last Admin: 08/03/17 14:45 Dose: 650 mg Acetaminophen/Codeine Phosphate (Tylenol/Codeine Elixir) 10 ml PO Q4H PRN PRN Reason: Pain Last Admin: 08/02/17 06:15 Dose: 10 ml Hydrocodone Bitart/Acetaminophen ([place] 5/325) 1 tab PO Q4H PRN PRN Reason: Moderate Pain (4-6) Al Hydroxide/Mg Hydroxide (Maalox) 15 ml PO Q4H PRN PRN Reason: Heartburn or Indigestion Amiodarone HCl (Cordarone) 200 mg PO BID [facility] Last Admin: 08/03/17 21:47 Dose: 200 mg Artificial Tears (Tears Naturale) 0 drop EA EYE PRN PRN PRN Reason: Dry Eyes Bisacodyl (Dulcolax) 10 mg [place] Q8H PRN PRN Reason: Constipation Citalopram Hydrobromide (Celexa) 40 mg PO DAILY [facility] Last Admin: 08/03/17 09:08 Dose: 40 mg Famotidine (Pepcid) 20 mg PO BID [facility] Last Admin: 08/03/17 21:47 Dose: 20 mg Furosemide (Lasix) 20 mg SLOW IVP 0600,1400 [facility] Last Admin: 08/04/17 08:36 Dose: Not Given Guaifenesin (Robitussin Sf) 200 mg PO Q4H PRN PRN Reason: Cough Hydralazine HCl (Apresoline) 10 mg SLOW IVP Q4H PRN PRN Reason: Systolic BP > 180 Meropenem 1 gm/ Miscellaneous Medication 1 each/ Sodium Chloride 100 mls @ 200 mls/hr IVPB 0800,1600,2359 [facility] Last Admin: 08/04/17 00:16 Dose: 100 mls Loratadine (Claritin) 10 mg PO DAILYPRN PRN PRN Reason: Sinus Symptoms Magnesium Hydroxide (Milk Of Magnesium) 30 ml PO DAILYPRN PRN PRN Reason: Constipation Metoprolol Tartrate (Lopressor) 50 mg PO BID [facility] Last Admin: 08/03/17 21:47 Dose: 50 mg Mineral Oil/White Petrolatum (Eucerin Cream) 0 gm TOP BIDPRN PRN PRN Reason: Dry Skin Morphine Sulfate (Morphine Sulfate) 4 mg SLOW IVP Q1H PRN PRN Reason: Moderate to Severe Pain (6-10) Last Admin: 08/03/17 00:45 Dose: 4 mg Ondansetron HCl (Zofran) 4 mg SLOW IVP Q4H PRN PRN Reason: Nausea/Vomiting Last Admin: 08/02/17 16:25 Dose: 4 mg Ondansetron HCl (Zofran Odt) 4 mg PO Q6H PRN PRN Reason: Nausea/Vomiting Pantoprazole Sodium (Protonix) 40 mg PO DAILY [facility] Last Admin: 08/03/17 09:09 Dose: 40 mg Rivaroxaban (Xarelto) 15 mg PO HS [facility] Last Admin: 08/03/17 21:47 Dose: 15 mg Sodium Chloride (Flush - Normal Saline) 10 ml IVF Q12HR [facility] Last Admin: 08/03/17 21:48 Dose: 10 ml Sodium Chloride (Flush - Normal Saline) 10 ml IVF PRN PRN PRN Reason: Saline Flush Last Admin: 08/03/17 00:46 Dose: 10 ml Sodium Chloride ([place] Nasal [place] 0.65%) 0 ml EA NARE QIDPRN PRN PRN Reason: Nasal Congestion Temazepam (Restoril) 15 mg PO HSPRN PRN PRN Reason: Insomnia Tramadol HCl (Ultram) 50 mg PO Q6H PRN PRN Reason: PAIN SCALE 1-5 Last Admin: 08/03/17 12:17 Dose: 50 mg Tramadol HCl (Ultram) 100 mg PO Q6H PRN PRN Reason: PAIN SCALE 6-10 Last Admin: 08/03/17 21:52 Dose: 100 mg Trazodone HCl (Desyrel) 150 mg PO HS [facility] Last Admin: 08/03/17 21:48 Dose: Not Given
[2017-08-04] MEDS: Metoprolol Tartrate 25 MG TAB PO SCH (09:04)
[2017-08-04] MEDS: Citalopram 20 MG TAB PO SCH (09:05)
[2017-08-04] MEDS: Famotidine 20 MG TAB PO SCH (09:05)
[2017-08-04 09:11] VITALS: BP 151/77; TEMP 98.3
[2017-08-04] MEDS: Acetaminophen/Codeine Oral Solution PO PRN (09:54)
--- OUTSIDE RECORDS SUMMARY | 2017-08-04 10:06 | XMS | Clinical Summary ---
:1955 Author Organization [facility] Address [address] [place] [address] Phone Care Team Providers Name Role Phone Dylan Orellana Primary Care Provider tel Allergies Active Allergy Reactions Severity Noted Date Comments No Known Drug Allergies 02/10/2016 Current Medications Prescription Sig. Disp. Refills Start Date End Date Status PROAIR HFA 90 11/11/2016 Active mcg/actuation inhaler HYDROcodone-acetamino TAKE 1 TABLET 0 01/08/2017 Active phen (NORCO) 10-325 EVERY 4 HOURS mg per tablet NEEDED silver sulfadiazine APPLY BY TOPICAL 2 12/16/2016 Active (SILVADENE, SSD) 1 % ROUTE 2 TIMES cream EVERY DAY A 1/16 INCH (1.5 MM) THICK LAYER TO ENTIRE BURN AREA traZODone (DESYREL) Take 3 tablets 270 tablet 3 01/15/2017 Active 50 MG tablet (150 mg total) by mouth nightly. citalopram (CeleXA) Take 1 tablet 90 tablet 3 01/23/2017 01/23/2018 Active 40 MG tablet (40 mg total) by mouth daily. 1 po qd cholestyramine Take 0.5 packets 45 packet 11 04/28/2017 04/28/2018 Active (QUESTRAN) 4 gram (2 g total) by powder mouth 3 (three) times a day with meals. rivaroxaban (XARELTO) TAKE 1 TABLET 06/22/2017 Active 20 mg tablet DAILY. carvedilol (COREG) TAKE 1 TABLET BY 04/04/2017 Active 12.5 MG tablet MOUTH 4 TIMES DAILY. tretinoin (RETIN-A) Apply topically 45 g 0 06/26/2017 06/26/2018 Active 0.05 % cream nightly. Active Problems Problem Noted Date Pyelonephritis 02/10/2016 Encounters Date Type Specialty Care Team Description 06/26/2017 Telephone Family Emelia Woods MA 06/25/2017 Orders Only Family Medicine Emelia Bassett MA Preoperative clearance 06/24/2017 Office Visit Family Dylan Mcwilliams Preoperative clearance MD Gagan (Primary Dx) 06/03/2017 Telephone Family Emelia Woods MA from Last 3 Months Social History Tobacco [...] COLONOSCOPY 2007 MAMMOGRAM 2007 INFLUENZA VACCINE 05/13/2017 ZOSTER VACCINE 2017 Results hCG qualitative, urine screen (06/24/2017 11:36 AM) Component Value Ref Range test, urine Negative Negative Specimen Performing Laboratory Urine [facility] Narrative Performed at: - [facility] [id number] Server Manager: Umer Hooper MD, Phone:[phone] CBC with platelet and differential (06/24/2017 11:36 [...] Specimen Performing Laboratory Blood [facility] Narrative Performed at:[id number] Server Manager: Umer Hooper MD, Phone:[phone] Hemoglobin A1c (06/24/2017 11:36 AM) Component Value Ref Range Hemoglobin A1C 5.3 4.8 - 5.6 % Comment: Pre-diabetes: 5.7 - 6.4 Diabetes: >6.4 Glycemic control for adults with diabetes: <7.0 Specimen Performing Laboratory Blood [facility] Narrative Performed at: [id number] Server Manager: Umer Hooper MD, Phone:[phone] Comprehensive metabolic panel (06/24/2017 11:36 AM) Component Value Ref Range Glucose 102(H) 65 - 99 mg/dL BUN, whole blood 15 6 - 24 mg/dL Creatinine 0.73 0.57 - 1.00 mg/dL EGFR Non-Afr. Hungarian 90 >59 mL/min/1.73 EGFR 104 >59 mL/min/1.73 [...] Blood [facility] Narrative Performed at: - [facility] [id number] Server Manager: Umer Hooper MD, Phone:[phone] ECG 12 lead (06/24/2017 11:03 AM) Component Value Ref Range Ventricular rate 76 Atrial rate 76 SD interval 152 QRSD interval 88 QT interval 372 QTC interval 418 P axis 1 75 QRS axis 1 59 T wave axis 52 EKG impression Normal sinus rhythm-Normal ECG-In automated comparison with ECG of 24-JUN-2017 11:03,-No significant change was found- Specimen Performing Laboratory [facility] [address] [place] [address] from Last 3 Months Insurance Payer Benefit Plan / Group Subscriber ID Type Phone Address BCBS BCBS CHOICE PPO/F[employer] EMPL PPO [id number] PPO
--- OUTSIDE RECORDS SUMMARY | 2017-08-04 10:06 | XMS | Clinical Summary ---
:1955 Author Organization [facility] Address [address] [place] [address] Phone Care Team Providers Name Role Phone , Primary Care Provider Unavailable Allergies No Known Allergies Current Medications Prescription Sig. Disp. Refills Start Date End Date Status citalopram (CELEXA) Take 40 mg by Active 40 MG mouth daily. tabletIndications:Va somotor Symptoms associated with Menopause traZODone (DESYREL) Take 150 mg by Active 150 MG tablet mouth nightly. amiodarone Take 1 tablet (200 0 07/28/2017 Active (PACERONE) 200 MG mg total) by mouth 8 tablet 2 (two) times daily. atorvastatin Take 1 tablet (10 0 07/28/2017 Active (LIPITOR) 10 MG mg total) by mouth 8 tablet nightly. digoxin (LANOXIN) Take 1 tablet (125 0 07/28/2017 Active 0.125 MG tablet mcg total) by 8 mouth daily. dilTIAZem in D5W 1 Inject 5 mg/hr 0 07/28/2017 Active mg/mL (CARDIZEM) 125 intravenously mg/125 mL (1 mg/mL) continuous. Soln heparin infusion Inject 150-3,500 100 mL 0 07/28/2017 Active 25,000 units in Units/hr dextrose 5% (D5W) intravenously 250 mL (100 continuous. units/mL) metoprolol Take 1 tablet (50 0 07/28/2017 Active (LOPRESSOR) 50 MG mg total) by mouth 8 tablet 2 (two) times daily. morphine 1 mg/ 1 mL Inject 4 mLs (4 mg 144 mL 0 07/28/2017 Active in 0.9 % sodium total) chloride 1 mg/mL intravenously Soln every 4 (four) hours as needed. Max Daily Amount: 24 mg ondansetron (ZOFRAN) Inject 2 mLs (4 mg 20 mL 0 07/28/2017 Active 4 mg/2 mL injection total) intravenously every 6 (six) hours. pantoprazole Take 1 tablet (40 0 07/28/2017 Active (PROTONIX) 40 MG mg total) by mouth tablet daily. piperacillin-tazobac Inject 50 mLs 50 mL 0 07/28/2017 Active glasgow (ZOSYN) 3.375 (3.375 g total) gram/50 mL IVPB intravenously every 8 (eight) hours. vancomycin Inject 250 mLs 0 07/28/2017 Active (VANCOCIN) IVPB 1250 (1,250 mg total) mg in sodium intravenously chloride 0.9% (NS) daily. 250 mL carvedilol (COREG) Take 12.5 mg by Discontinued 12.5 MG tablet mouth 4 (four) 7 times daily. rivaroxaban Take 20 mg by Discontinued (XARELTO) 20 mg Tab mouth daily. 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 Problems Problem Noted Date Gastric leak 07/17/2017 Encounters Date Type Specialty Care Team Description 07/23/2017 Anesthesia Event Gastroenterology Thiago Rivera MD 07/23/2017 Procedure Pass Gastroenterology 07/23/2017 Surgery Gastroenterology Cait Aiken UPPER ENDOSCOPY MD Rui 07/18/2017 Anesthesia Event Gastroenterology Mayank Rudolph CRNA 07/18/2017 Procedure Pass Gastroenterology 07/18/2017 Surgery Gastroenterology Cait Aiken UPPER ENDOSCOPY MD Rui 07/17/2017 - Hospital Encounter Cardiology Shanita Lester Gastric leak 07/28/2017 MD Haider 07/17/2017 Orders Only General Internal Medicine from Last 3 Months Family History Medical History Relation Name Comments Heart disease Brother Heart disease Father No Known Problem Mother No Known Problem Son Relation Name Status Comments Brother Father Mother Son Alive Social History Tobacco Use Types Packs/Day Years Used Date Current Every Day Smoker 1 Smokeless Tobacco: Never Used Alcohol Use Drinks/Week oz/Week Comments Yes 4 Shots of liquor 2.4 Sex Assigned at Date Recorded Not on file Last Filed Vital Signs Vital Sign Reading Time Taken Blood Pressure 142/65 07/28/2017 12:00 PM CDT Pulse 63 07/28/2017 12:00 PM CDT Temperature 36.8 C (98.2 F) 07/28/2017 12:00 PM CDT Respiratory Rate 20 07/28/2017 12:00 PM CDT Oxygen Saturation 94% 07/28/2017 12:00 PM CDT Inhaled Oxygen Concentration - - Weight 109.9 kg (242 lb 3.2 oz) 07/26/2017 7:49 AM CDT Height 182.9 cm (6') 07/17/2017 4:50 PM CDT Body Mass Index 32.85 07/26/2017 7:49 AM CDT Plan of Treatment Not on file Implants Implanted Type Area Housing Assistant Device Expiration Model / Identifier Date Serial / Lot Stent Esoph Wallfelx [id number] - [id number] Stents-P N/A: [employer]: ENDO 09/11/2018 1675 / Implanted:Qty: 1 on 07/18/2017 by Cait Aiken MD eriphera Esophagus / l [id number] Stent Esoph Wallflex [id number] - Sgtin #[id number] Stents-P [employer]:ENDO 07/21/2018 1674 / Implanted:Qty: 1 on 07/23/2017 by Cait Aiken MD eriphera GTIN #[id number] / l [id number] Procedures Procedure Name Priority Date/Time Associated Diagnosis Comments UPPER ENDOSCOPY,WALL 07/23/2017 3:00 PM CDT GASTRIC LEAK STENT Special Needs EGD WITH WALL STENT PLACEMENT WITH ANES AND FLUORO (call case) PROCEDURE W/ C-ARM 07/23/2017 3:00 PM CDT GASTRIC LEAK Special Needs EGD WITH WALL STENT PLACEMENT WITH ANES AND FLUORO (call case) UPPER ENDOSCOPY 07/23/2017 3:00 PM CDT GASTRIC LEAK Special Needs EGD WITH WALL STENT PLACEMENT WITH ANES AND FLUORO (call case) UPPER ENDOSCOPY,WALL STENT 07/18/2017 5:00 PM CDT DYSPHAGIA Case Notes EGD WITH STENT PLACEMENT WITH ANES AND FLUORO Special Needs EGD WITH STENT PLACEMENT WITH ANES AND FLUORO (CALL CASE) PROCEDURE W/ C-ARM 07/18/2017 5:00 PM CDT DYSPHAGIA Case Notes EGD WITH STENT PLACEMENT WITH ANES AND FLUORO Special Needs EGD WITH STENT PLACEMENT WITH ANES AND FLUORO (CALL CASE) UPPER ENDOSCOPY 07/18/2017 5:00 PM CDT DYSPHAGIA Case Notes EGD WITH STENT PLACEMENT WITH ANES AND FLUORO Special Needs EGD WITH STENT PLACEMENT WITH ANES AND FLUORO (CALL CASE) from Last 3 Months Results RHYTHM STRIP - SCAN (07/29/2017 10:40 AM)ECG 12 lead (07/28/2017 10:50 AM)Only the most recent of3 resultswithin the time period is included. Specimen Performing Laboratory GE MUSE Narrative Ventricular Rate 76 BPM Atrial Rate 76 BPM P-R Interval 132 ms QRS Duration 102 ms Q-T Interval 362 ms QTC Calculation(Bazett) 407 ms P [place] 64 degrees R [place] 9 degrees T [place] 68 degrees Normal sinus rhythm Low voltage QRS Nonspecific ST and T wave abnormality Abnormal ECG When compared with ECG of 20-JUL-2017 13:51, No significant change was found Confirmed by MD ELEUTERIO, IHAB ([id number]) on 07/28/2017 1:33:14 PM Procedure Note Interface, External Ris In - 07/28/2017 1:33 PM CDT Ventricular Rate 76 BPM Atrial Rate 76 BPM P-R Interval 132 ms QRS Duration 102 ms Q-T Interval 362 ms QTC Calculation(Bazett) 407 ms P [place] 64 degrees R [place] 9 degrees T [place] 68 degrees Normal sinus rhythm Low voltage QRS Nonspecific ST and T wave abnormality Abnormal ECG When compared with ECG of 20-JUL-2017 13:51, No significant change was found Confirmed by MD ELEUTERIO, IHAB ([id number]) on 07/28/2017 1:33:14 PM aPTT (07/28/2017 5:58 AM)Only the most recent of20 resultswithin the time period is included. Component Value Ref Range PTT 71.6(H) 22.5 - 36.0 seconds Specimen Performing Laboratory Blood - Central Venous Line [address] [address] CBC with platelet count + automated diff (07/28/2017 5:56 AM)Only the most recent of12 resultswithin the time period is included. Component Value Ref Range WBC 13.3(H) 3.5 - 10.5 K/L RBC 2.96(L) 3.93 - 5.22 M/L Hemoglobin 8.9(L) 11.2 - 15.7 GM/DL Hematocrit 28.7(L) 34.1 - 44.9 % MCV 97.0(H) 79.4 - 94.8 fL MCH 30.1 25.6 - 32.2 pg MCHC 31.0(L) 32.2 - 35.5 GM/DL RDW 14.6(H) 11.7 - 14.4 % Platelets 304 150 - 450 K/CU MM MPV 10.8 9.4 - 12.3 fL nRBC 0 0 - 0 /100 WBC % Neutros 82 % % Lymphs 9 % % Monos 7 % % Eos 1 % % Baso 0 % # Neutros 10.92(H) 1.56 - 6.13 K/L # Lymphs 1.16(L) 1.18 - 3.74 K/L # Monos 0.95(H) 0.24 - 0.36 K/L # Eos 0.15 0.04 - 0.36 K/L # Baso 0.04 0.01 - 0.08 K/L Immature Granulocytes-Relative 1 0 - 1 % Specimen Performing Laboratory Blood - Central Venous Line [address] [address] CBC with platelet count + automated diff (07/28/2017 5:56 AM)Only the most recent of12 resultswithin the time period is included. Specimen Performing Laboratory Blood Narrative The following orders were created for panel order CBC with platelet count + automated diff. Procedure Abnormality Status --------- ------ CBC with platelet count ...[[id number]]AbnormalFinal result Please view results for these tests on the individual orders. Basic Metabolic Panel (07/28/2017 5:56 AM)Only the most recent of12 resultswithin the time period is included. Component Value Ref Range Sodium 139 136 - 145 meq/L Potassium 3.6 3.5 - 5.1 meq/L Chloride 105 98 - 107 meq/L CO2 25 22 - 29 meq/L BUN 7 7 - 21 mg/dL Creatinine 1.59(H) 0.57 - 1.25 mg/dL Glucose 101 70 - 105 mg/dL Calcium 8.4 8.4 - 10.2 mg/dL EGFR 33Comment:ESTIMATED GFR IS NOT ACCURATE CREATININE mL/min/1.73 sq m CLEARANCE IN PREDICTING GLOMERULAR FILTRATION RATE. ESTIMATED GFR IS NOT APPLICABLE FOR DIALYSIS PATIENTS. Specimen Performing Laboratory Blood - Central Venous Line [address] [address] Sodium, random urine (07/26/2017 11:24 PM) Component Value Ref Range Sodium Urine 38 meq/L Specimen Performing Laboratory Urine - Urine, [place] [address] Narrative Reference Range: No Normals Creatinine, random urine (07/26/2017 11:24 PM) Component Value Ref Range Creatinine, Ur 73.7 mg/dL Specimen Performing Laboratory Urine - Urine, [place] [address] Narrative Reference Range: No Normals Urinalysis w/Microscopic (07/26/2017 11:24 PM)Only the most recent of2 resultswithin the time period is included. Component Value Ref Range Color, UA Light Yellow Clarity, UA Slightly Hazy Specific Michael, UA 1.008 1.001 - 1.035 pH, UA 5.5 5.0 - 8.0 Protein, UA Negative Negative Glucose, UA Negative Negative Ketones, UA Negative Negative Bilirubin, UA Negative Negative Blood, UA Negative Negative Nitrite, UA Negative Negative Leukocytes, UA Negative Negative Urobilinogen, UA 0.2 0.2 - 1.0 mg/dL RBC, UA 2 /HPF WBC, UA 2 /HPF Bacteria, UA Rare Squam Epithel, UA 2 /HPF Amorphous Crystals Few Yeast OccasionalComment:Budding yeast seen Specimen Source Urine, Clean Catch Specimen Performing Laboratory Urine - Urine, Clean Catch [address] [address] [place] upper gi including advance scout KUB (07/25/2017 10:20 AM) Specimen Performing Laboratory GE RIS Narrative FINAL REPORT Upper GI examination History: check for leaking post stent placement after gastric sleeve Technique: Upper GI examination was performed using Gastrografin. Total fluoroscopy time: 0.2 minutes Total number of films: 44 Findings: Postsurgical changes are seen in the stomach from prior sleeve gastrectomy. There is a metallic stent in the esophagus extending to the gastroesophageal junction. There is no evidence of contrast leak or extravasation. There is no obstruction. Impression: No leak or obstruction. Signed: Nicolle, Luke MD Report Verified Date/Time:07/25/2017 11:07:50 Reading Location: [facility] B1 C013X Ortho Consult Reading Room Procedure Note Interface, External Ris In - 07/25/2017 11:09 AM CDT FINAL REPORT Upper GI examination History: check for leaking post stent placement after gastric sleeve Technique: Upper GI examination was performed using Gastrografin. Total fluoroscopy time: 0.2 minutes Total number of films: 44 Findings: Postsurgical changes are seen in the stomach from prior sleeve gastrectomy. There is a metallic stent in the esophagus extending to the gastroesophageal junction. There is no evidence of contrast leak or extravasation. There is no obstruction. Impression: No leak or obstruction. Signed: Carlos Bella MD Report Verified Date/Time: 07/25/2017 11:07:50 Reading Location: [facility] B1 C013X Ortho Consult Reading Room Eosinophil smear (07/25/2017 9:42 AM) Component Value Ref Range Eosinophil Smear No EOS seen No EOS seen Specimen Performing Laboratory Urine - Urine, [place] [address] US Renal with Doppler (07/24/2017 11:53 AM) Specimen Performing Laboratory GE RIS Narrative FINAL REPORT Realtime Renal ultrasound with Renal Doppler Comparison: No comparison Clinical History:Acute kidney injury Technique: Real time sonographic evaluation of the kidneys was performed.75 images were submitted for interpretation, using a five MHz transducer.Color and spectral Doppler images were submitted for interpretation. Right kidney: The kidney measures 11.5 cm in length.The cortical echogenicity is similar to the liver.The cortex measures 1.4 cm.There is no evidence of a focal mass, or hydronephrosis.There is evidence of a 6 mm nonobstructing shadowing stone.There is no evidence of a cyst. There is no evidence of a perinephric fluid collection.Flow was visualized to the right kidney. The resistive indices are elevated in the mid and lower pole. Left kidney: The kidney measures 12.4 cm in length.The cortical echogenicity is within normal limits.The cortex measures 1.4 cm.There is no evidence of a focal mass. There is no evidence of hydronephrosis. There is no evidence of a shadowing stone.There is no evidence of a cyst.There is no evidence of a perinephric fluid collection. Flow was visualized to the left kidney. The resistive indices are within normal limits with minimal elevation in the upper pole. Survey images of the bladder did not document significant fluid.. The patient voided prior to the study.. Impression: The kidneys are normal in size without evidence of hydronephrosis. There is nonspecific elevation of the resistive indices. There is a nonobstructing 6 mm stone suspected in the right lower pole. Signed: Keyla Araujo MD Report Verified Date/Time:07/24/2017 14:59:59 Reading Location: [place] [id number] Ultrasound Reading Room Procedure Note Interface, External Ris In - 07/24/2017 3:02 PM CDT FINAL REPORT Realtime Renal ultrasound with Renal Doppler Comparison: No comparison Clinical History: Acute kidney injury Technique: Real time sonographic evaluation of the kidneys was performed. 75 images were submitted for interpretation, using a five MHz transducer. Color and spectral Doppler images were submitted for interpretation. Right kidney: The kidney measures 11.5 cm in length. The cortical echogenicity is similar to the liver. The cortex measures 1.4 cm. There is no evidence of a focal mass, or hydronephrosis. There is evidence of a 6 mm nonobstructing shadowing stone. There is no evidence of a cyst. There is no evidence of a perinephric fluid collection. Flow was visualized to the right kidney. The resistive indices are elevated in the mid and lower pole. Left kidney: The kidney measures 12.4 cm in length. The cortical echogenicity is within normal limits. The cortex measures 1.4 cm. There is no evidence of a focal mass. There is no evidence of hydronephrosis. There is no evidence of a shadowing stone. There is no evidence of a cyst. There is no evidence of a perinephric fluid collection. Flow was visualized to the left kidney. The resistive indices are within normal limits with minimal elevation in the upper pole. Survey images of the bladder did not document significant fluid.. The patient voided prior to the study.. Impression: The kidneys are normal in size without evidence of hydronephrosis. There is nonspecific elevation of the resistive indices. There is a nonobstructing 6 mm stone suspected in the right lower pole. Signed: Keyla Araujo MD Report Verified Date/Time: 07/24/2017 14:59:59 Reading Location: [facility] P006J Ultrasound Reading Room Magnesium (07/24/2017 4:14 AM)Only the most recent of4 resultswithin the time period is included. Component Value Ref Range Magnesium 1.8 1.6 - 2.6 mg/dL Specimen Performing Laboratory Blood - Central Venous Line [address] [address] [place] grades 7 8 tutor in or 30 minute increments (07/23/2017 8:53 PM) Specimen Performing Laboratory GE RIS Narrative FINAL REPORT Single fluoroscopic image. Fluoroscopy time 89.6 seconds. Fluoroscopy was not performed by the undersigned. Refer to procedure notes for diagnostic and therapeutic detail. Signed: Zain Montalvo MD Report Verified Date/Time:07/31/2017 13:42:22 Reading Location: [facility] C013W Consult Reading Room Procedure Note Interface, External Ris In - 07/31/2017 1:44 PM CDT FINAL REPORT Single fluoroscopic image. Fluoroscopy time 89.6 seconds. Fluoroscopy was not performed by the undersigned. Refer to procedure notes for diagnostic and therapeutic detail. Signed: Zain Montalvo MD Report Verified Date/Time: 07/31/2017 13:42:22 Reading Location: [facility] C013W Consult Reading Room RT OF PROCEDURE - ENDOSCOPY URL (07/23/2017 8:42 PM)Only the most recent of2 resultswithin the time period is included.Prealbumin (07/23/2017 9:19 AM) Component Value Ref Range Prealbumin 6(L) 14 - 45 mg/dL Specimen Performing Laboratory Blood - Central Venous Line [address] [address] POC-Glucose meter (07/23/2017 6:56 AM) Component Value Ref Range POC-Glucose Meter 106Comment:TESTED AT [address] 70 - 110 mg/dL [address] Specimen Performing Laboratory Blood [address] [address] Manual Differential (07/23/2017 4:46 AM)Only the most recent of4 resultswithin the time period is included. Component Value Ref Range Total Counted WBC Morphology Normal Platelet Morphology Normal RBC Morphology Normal Specimen Performing Laboratory Blood [address] [address] [place] upper GI (07/21/2017 5:17 PM) Specimen Performing Laboratory GE RIS Narrative FINAL REPORT UGI study Clinical History: Assess for gastric sleeve leak Discussion: Gastrografin is given to the patient to drink. Patient is status post gastric sleeve surgery. There is extravasation of contrast from the proximal/fundal region of the stomach. No obstruction. Patient experiencing significant nausea and vomiting during the exam. Fluoro time:1.2 minutes Number of images obtained: 7 Impression: Contrast extravasation from the proximal stomach. Signed: South Dawson MD Report Verified Date/Time:07/21/2017 17:33:52 Reading Location: [address] Consult Reading Room Procedure Note Interface, External Ris In - 07/21/2017 5:36 PM CDT FINAL REPORT UGI study Clinical History: Assess for gastric sleeve leak Discussion: Gastrografin is given to the patient to drink. Patient is status post gastric sleeve surgery. There is extravasation of contrast from the proximal/fundal region of the stomach. No obstruction. Patient experiencing significant nausea and vomiting during the exam. Fluoro time: 1.2 minutes Number of images obtained: 7 Impression: Contrast extravasation from the proximal stomach. Signed: South Dawson MD Report Verified Date/Time: 07/21/2017 17:33:52 Reading Location: [facility] B1 C013X Ortho Consult Reading Room Vancomycin level, trough (07/21/2017 9:02 AM) Component Value Ref Range Vancomycin Tr 8.8(L) 10.0 - 20.0 ug/mL Specimen Performing Laboratory Blood - Central Venous Line [address] [address] [address] abdomen/pelvis with IV contrast (07/19/2017 1:39 PM) Specimen Performing Laboratory GE RIS Narrative FINAL REPORT DOSE REDUCTION: The examination was performed according to departmental dose-optimization program which includes automated exposure control, adjustment of the mA and/or kV according to patient size and/or use of iterative reconstruction technique. TECHNIQUE: CT of the abdomen and pelvis with intravenous contrast. COMPARISON: None Discussion: In the inferior chest there is a small left pleural effusion with adjacent airspace disease. There is atelectasis in the lung bases. Bilateral breast prosthesis partially depicted. Liver, spleen, pancreas, right adrenal gland appear unremarkable. There is a 1.8 cm left adrenal gland nodule. Status post cholecystectomy. No biliary ductal dilatation. Subcentimeter left renal hypodensities too small to characterize. Otherwise kidneys and ureters appear unremarkable. An esophageal stent is partially depicted on this exam with the distal end at the GE junction. Postsurgical changes related to gastric sleeve procedure noted. There is almost "L shaped" tubular fluid and gas collection that courses along the residual stomach. This extends to the left subdiaphragmatic space, and along the region of the gastrohepatic ligament. Exact measurements are difficult due to its configuration. A caudal component measures about 14 x 8 cm, the component towards the left and more cephalad measures about 10 x 11 cm. Presumably this represents sequela of gastric leak/abscess. 2 percutaneous surgical drainage catheters are identified appropriately placed within the collection. There is adjacent edema and stranding. Small amount of fluid surrounding the spleen are identified. Scattered small amounts of fluid seen elsewhere. There is colonic diverticulosis. No findings of diverticulitis. No definite small or large bowel obstruction. Some residual contrast is identified in the distal small bowel and colon presumably from a previous exam. Appendix appears normal. There are scattered periaortic and pericaval lymph nodes, likely reactive. Aorta and IVC are normal in caliber. Uterus is surgically absent. No suspicious adnexal masses. Urinary bladder is unremarkable. There is mild soft tissue anasarca. No acute skeletal abnormality. No definite suspicious osseous lytic or blastic lesions. IMPRESSION: 1. Large fluid and gas collection as described, following the course of the stomach presumably gastric leak/abscess. Surgical drainage catheters identified in the collection. 2. Scattered small amounts of fluid and stranding. 3. Esophageal stent in place. 4. Small left pleural effusion with adjacent consolidation. Signed: Kwame Blanton MD Report Verified Date/Time:07/19/2017 14:29:04 Reading Location: [facility] B1 C013Y CT Body Reading Room Procedure Note Interface, External Ris In - 07/19/2017 2:31 PM CDT FINAL REPORT DOSE REDUCTION: The examination was performed according to departmental dose-optimization program which includes automated exposure control, adjustment of the mA and/or kV according to patient size and/or use of iterative reconstruction technique. TECHNIQUE: CT of the abdomen and pelvis with intravenous contrast. COMPARISON: None Discussion: In the inferior chest there is a small left pleural effusion with adjacent airspace disease. There is atelectasis in the lung bases. Bilateral breast prosthesis partially depicted. Liver, spleen, pancreas, right adrenal gland appear unremarkable. There is a 1.8 cm left adrenal gland nodule. Status post cholecystectomy. No biliary ductal dilatation. Subcentimeter left renal hypodensities too small to characterize. Otherwise kidneys and ureters appear unremarkable. An esophageal stent is partially depicted on this exam with the distal end at the GE junction. Postsurgical changes related to gastric sleeve procedure noted. There is almost "L shaped" tubular fluid and gas collection that courses along the residual stomach. This extends to the left subdiaphragmatic space, and along the region of the gastrohepatic ligament. Exact measurements are difficult due to its configuration. A caudal component measures about 14 x 8 cm, the component towards the left and more cephalad measures about 10 x 11 cm. Presumably this represents sequela of gastric leak/abscess. 2 percutaneous surgical drainage catheters are identified appropriately placed within the collection. There is adjacent edema and stranding. Small amount of fluid surrounding the spleen are identified. Scattered small amounts of fluid seen elsewhere. There is colonic diverticulosis. No findings of diverticulitis. No definite small or large bowel obstruction. Some residual contrast is identified in the distal small bowel and colon presumably from a previous exam. Appendix appears normal. There are scattered periaortic and pericaval lymph nodes, likely reactive. Aorta and IVC are normal in caliber. Uterus is surgically absent. No suspicious adnexal masses. Urinary bladder is unremarkable. There is mild soft tissue anasarca. No acute skeletal abnormality. No definite suspicious osseous lytic or blastic lesions. IMPRESSION: 1. Large fluid and gas collection as described, following the course of the stomach presumably gastric leak/abscess. Surgical drainage catheters identified in the collection. 2. Scattered small amounts of fluid and stranding. 3. Esophageal stent in place. 4. Small left pleural effusion with adjacent consolidation. Signed: Kwame Blanton MD Report Verified Date/Time: 07/19/2017 14:29:04 Reading Location: [facility] C013Y CT Body Reading Room /aPTT (07/19/2017 3:33 AM)Only the most recent of3 resultswithin the time period is included. Component Value Ref Range Protime 15.8(H) 11.7 - 14.7 seconds INR 1.3 <=5.9 PTT 32.4 22.5 - 36.0 seconds Specimen Performing Laboratory Blood [address] [address] Narrative RECOMMENDED COUMADIN/WARFARIN INR THERAPY RANGES STANDARD DOSE: 2.0 - 3.0 Includes: PROPHYLAXIS for venous thrombosis, systemic embolization; TREATMENT for venous thrombosis and/or pulmonary embolus. HIGH RISK: Target INR is 2.5-3.5 for patients with mechanical heart valves. Phosphorus (07/19/2017 3:33 AM)Only the most recent of3 resultswithin the time period is included. Component Value Ref Range Phosphorus 2.1(L)Comment:Specimen slightly hemolyzed 2.3 - 4.7 mg/dL Specimen Performing Laboratory Blood [address] [address] Hepatic function panel (07/19/2017 3:33 AM)Only the most recent of3 resultswithin the time period is included. Component Value Ref Range Protein, Total 6.7Comment:Specimen slightly hemolyzed 6.0 - 8.3 gm/dL Albumin 2.8(L)Comment:Specimen slightly hemolyzed 3.5 - 5.0 g/dL Total Bilirubin 0.5Comment:Specimen slightly hemolyzed 0.2 - 1.2 mg/dL Bilirubin, Direct 0.2Comment:Specimen slightly hemolyzed 0.1 - 0.5 mg/dL Alkaline Phosphatase 70 40 - 150 U/L AST 21Comment:Specimen slightly hemolyzed 5 - 34 U/L ALT 21Comment:Specimen slightly hemolyzed 6 - 55 U/L Specimen Performing Laboratory Blood [address] [address] Digoxin level (07/18/2017 4:14 PM) Component Value Ref Range Digoxin Lvl 0.5(L) 0.8 - 2.0 ng/mL Specimen Performing Laboratory Blood - Central Venous Line [address] [address] ECHOCARDIOGRAM REPORT - SCAN (07/18/2017 2:20 PM)Transesophageal echo (2016 8:12 AM) Component Value Ref Range Ejection Fraction Specimen Performing Laboratory SLE ECHO [facility]ON CPACS Narrative Transesophageal Echocardiography Report ([facility]) Demographics Patient Name KASIE EASTMAN Date of Study 07/18/2017 [id number] GenderFemale Visit Number [id number] RaceUnknon [id number] Number [id number] Number Date of Birth1955 Referring Physician Marcia Kennedy MD Age61 year(s) Efficiency Miner Darin Downs, Physician Fellow SALINAS Doherty Procedure Type of Study [facility] procedure:TRANSESOPHAGEAL ECHO Indications:Atrial fibrillation. Clinical History A-FIB,CANCER Height: 72 inches Weight: 90.72 kg (200 lbs) BSA: 2.13 m^2 BMI: 27.12 kg/m^2 HR: 137 bpm BP: 130/68 mmHg Procedure Medications - Fentanyl 100 mcg. - Midazolam 6 mg. Summary The atrial septum is aneurysmal. No evidence of patent foramen ovale (PFO) with agitated saline contrast at rest. Normal left ventricular chamber size. Normal wall thickness. Normal overall left ventricular systolic function. Estimation of LV function is limited by tachycardia. No apparent segmental wall motion abnormalities. LA is enlarged but severity assessment is unreliable due to know DEACON sector size limitation. There is echogenic material consistent with thrombus (0.9 x0.9 cm) visualized in the distal portion of the NISHA. There is no doppler flow in the area of echogenicity, also consistent with thrombus. Unable to estimate peak systolic PA pressure; inadequate TR velocity signal. Mild mitral regurgitation. No significant pericardial effusion is visualized. Previous Study No prior studies available for comparison. Signature Findings Rhythm/BPAtrial flutter with rapid ventricular response. No DCCV performed due to NISHA thrombus. Left Ventricle Normal left ventricular chamber size. Normal wall thickness. Normal overall left ventricular systolic function. Estimation of LV function is limited by tachycardia. No apparent segmental wall motion abnormalities. Left AtriumLA is enlarged but severity assessment is unreliable due to know DEACON sector size limitation. There is echogenic material consistent with thrombus (0.9 x0.9 cm) visualized in the distal portion of the NISHA. There is no doppler flow in the area of echogenicity, also consistent with thrombus. Right VentricleThe right ventricle is not well visualized. Right Atrium The RA is not well visualized. Atrial SeptumThe atrial septum is aneurysmal. No evidence of patent foramen ovale (PFO) with agitated saline contrast at rest. Aortic Valve Normal AoV structure and function. Mitral Valve Mild mitral regurgitation. The mitral valve appears mildly thickened. Tricuspid ValveMild tricuspid regurgitation. Unable to estimate peak systolic PA pressure; inadequate TR velocity signal. Pulmonic Valve Normal PV structure and function by limited views. AortaAortic root size (SInus of Valsalva diameter) is normal . The aortic sinotubular junction appears normal . Proximal ascending aorta size is normal . Grade 2 plaque (extensive intimal thickening) in the descending thoracic aorta and aortic arch . PericardiumNo significant pericardial effusion is visualized. IVC/SVC/PA/PV/PleuralThe pulmonary veins appear normal. Procedure Note Interface, External Ris In - 07/18/2017 1:39 PM CDT Transesophageal Echocardiography Report ([facility]) Demographics Patient Name KASIE EASTMAN Date of Study 07/18/2017 Gender Female Visit Number [id number] Race Unknown Room Number C828 Number Date of 1955 Referring Physician Marcia Kennedy MD Age 61 year(s) Efficiency Miner Darin RCSDavid Interpreting Andrew Lua, Physician Fellow SALINAS Doherty Procedure Type of Study [facility] procedure:TRANSESOPHAGEAL ECHO Indications:Atrial fibrillation. Clinical History A-FIB,CANCER Height: 72 inches Weight: 90.72 kg (200 lbs) BSA: 2.13 m^2 BMI: 27.12kg/m^2 HR: 137 bpm BP: 130/68 mmHg Procedure Medications - Fentanyl 100 mcg. - Midazolam 6 mg. Summary The atrial septum is aneurysmal. No evidence of patent foramen ovale(PFO) with agitated saline contrast at rest. Normal left ventricular chamber size. Normal wall thickness. Normal overall left ventricular systolic function. Estimation of LV functionis limited by tachycardia. No apparent segmental wall motionabnormalities. LA is enlarged but severity assessment is unreliable due to know DEACON sector size limitation. There is echogenic material consistent with thrombus (0.9 x0.9 cm) visualized in the distal portion of the NISHA. There is no doppler flowin the area of echogenicity, also consistent with thrombus. Unable to estimate peak systolic PA pressure; inadequate TR velocity signal. Mild mitral regurgitation. No significant pericardial effusion is visualized. Previous Study No prior studies available for comparison. Signature Findings Rhythm/BP Atrial flutter with rapid ventricular response.No DCCV performed due to NISHA thrombus. Left Ventricle Normal left ventricular chamber size. Normalwall thickness. Normal overall left ventricularsystolic function. Estimation of LV function is limitedby tachycardia. No apparent segmental wall motion abnormalities. Left Atrium LA is enlarged but severity assessment is unreliable due to know DEACON sector sizelimitation. There is echogenic material consistent with thrombus (0.9 x0.9 cm) visualized in the distal portion of the NISHA. There is no doppler flow inthe area of echogenicity, also consistent with thrombus. Right Ventricle The right ventricle is not well visualized. Right Atrium The RA is not well visualized. Atrial Septum The atrial septum is aneurysmal. No evidence of patent foramen ovale (PFO) with agitated saline contrast at rest. Aortic Valve Normal AoV structure and function. Mitral Valve Mild mitral regurgitation. The mitral valve appears mildly thickened. Tricuspid Valve Mild tricuspid regurgitation. Unable to estimate peak systolic PA pressure; inadequate TR velocity signal. Pulmonic Valve Normal PV structure and function by limitedviews. Aorta Aortic root size (SInus of Valsalva diameter) is normal . The aortic sinotubular junction appears normal . Proximal ascending aorta size is normal . Grade 2 plaque (extensive intimal thickening) in the descending thoracic aorta and aortic arch . Pericardium No significant pericardial effusion isvisualized. IVC/SVC/PA/PV/Pleural The pulmonary veins appear normal. TSH/Free T4 If Indicated (07/18/2017 3:26 AM) Component Value Ref Range TSH 1.39 0.35 - 4.94 uIU/mL Specimen Performing Laboratory Blood - Central Venous Line [address] [address] Blood culture #2 (07/18/2017 3:20 AM)Only the most recent of2 resultswithin the time period is included. Component Value Ref Range Result No growth in 5 days Specimen Performing Laboratory Blood - Central Venous Line [address] [address] XR chest 1 view portable / bedside (07/17/2017 6:40 PM) Specimen Performing Laboratory GE RIS Narrative FINAL REPORT EXAM: Chest one view CLINICAL HISTORY: Shortness of breath FINDINGS: There is blunting of the left hemidiaphragm likely due to small subpulmonic pleural effusion. Left basilar opacity is also noted likely due to atelectasis versus consolidation. There is bilateral pulmonary edema. The cardiac size is within normal limits. The patient is status post cervical fusion, the hardware is partially visualized. Otherwise, the regional osseous structures are unremarkable. Signed: Merced Menjivar MD Report Verified Date/Time:07/17/2017 19:44:20 Reading Location: [facility] C013 Consult Reading Room Procedure Note Interface, External Ris In - 07/17/2017 7:46 PM CDT FINAL REPORT EXAM: Chest one view CLINICAL HISTORY: Shortness of breath FINDINGS: There is blunting of the left hemidiaphragm likely due to small subpulmonic pleural effusion. Left basilar opacity is also noted likely due to atelectasis versus consolidation. There is bilateral pulmonary edema. The cardiac size is within normal limits. The patient is status post cervical fusion, the hardware is partially visualized. Otherwise, the regional osseous structures are unremarkable. Signed: Merced Menjivar MD Report Verified Date/Time: 07/17/2017 19:44:20 Reading Location: [facility] B1 C013W Consult Reading Room Urine culture (07/17/2017 6:14 PM) Component Value Ref Range Result Result >100,000 col/mL Shama glabrata(A) Specimen Performing Laboratory Urine - Urine, Unspecified Source [address] [address] from Last 3 Months
[2017-08-04] MEDS ORDERED: Furosemide 40 MG TAB PO SCH (11:00)
--- NOTE | 2017-08-04 11:54 | PRG ---
DATE OF SERVICE: 08/04/2017 SUBJECTIVE: Ms. Espinosa states that she is feeling better. Her shortness of breath is much improved. She is able to lay down and sleep now. She did have a PICC line placed on Friday. She is tolerati ng the pureed diet without difficulty. PHYSICAL EXAMINATION: VITAL SIGNS: Blood pressure is 151/77, her pulse is 80, her O2 sat is 92% on room air. She is afeb rile at 98.3. Drain output has been for the last 2 shifts has been 70 and 20, it is still purulent. ABDOMEN: Soft. Wounds are healing well. She is nondistended, no evidence of infection. LABORATORY DATA: White cell count is 7, hemoglobin 9.9, platelet count is 308. Creatinine yesterda y was 1.44 and potassium was 3.5. ASSESSMENT: 1. Status post staple line leak after sleeve. 2. Coronary artery disease. 3. Left pleural effusion. 4. Persistent abdominal abscess, well drained. PLAN: She wishes to go home today. I think she is clear for that. Her CT scan performed last week showed some contrast of this persistent in the abscess cavity which could be residual contrast vers us new; however, clinically she is stable, doing well, tolerating diet and her drain output is purul ent. She had a PICC line placed and she sat up for IV antibiotics via Dr. Charlton's office. I think she is good for discharge. She will need additional followup CAT scan in a few weeks to make sure t he upper abdominal cavity is improving. She states that her shortness of breath is much improved. If this were to worsen, she would have to return to the hospital, although it is stable on her [facility]. Prescriptions given for discharge include tramadol, Tylenol #3, Zofran, and pantop razole. I encouraged her to take the pantoprazole daily due to the fact that she has had leak and g ood acid control is mandatory, the nurses can change the dressings at the drain sites. Her central line has already been removed.
--- NOTE | 2017-08-05 12:31 | DIS ---
PRIMARY CARE PHYSICIAN: Dr. Alli Durand DATE OF DISCHARGE: 08/04/2017 CONDITION AT THE TIME OF DISCHARGE: Stable and improved. DISCHARGE DIAGNOSES: 1. Status post staple line leak after gastric sleeve operation recently. 2. Left-sided persistent pleural effusion. 3. Acute kidney failure, resolved. 4. Paroxysmal atrial fibrillation on chronic anticoagulation. 5. Normocytic normochromic anemia. 6. History of hypertension. 7. History of breast cancer status post bilateral mastectomy. DISCHARGE MEDICATIONS: Include as follows: Celexa 40 mg daily, Coreg 25 mg p.o. b.i.d., trazodone 50 mg at bedtime as needed, Xarelto 20 mg daily, Lasix 40 mg daily. CONSULTATIONS: 1. Internal Medicine, [facility] Physician team. 2. Cardiology, Dr. Keven Marroquin. 3. Infectious Disease, Dr. Charlton. PROCEDURES DONE: CT scan of the abdomen and pelvis upon presentation, which showed contrast contain ing collection into stomach suture line concerning for a contained perforation and large left and sm all right-sided pleural effusion. Small focus of gas edges into the suture line at the GE junction also noticed. Placement of a PICC line. Multiple chest x-rays. ADMISSION HISTORY: Ms. Espinosa is a 62-year-old female who was admitted to General Surgery team under Dr. Alli Durand on 07/28/2017. She had undergone a sleeve gastrectomy on 07/03/2017 and was restarte d on her anticoagulants within 24 hours due to atrial fibrillation/flutter. She developed postop he matoma and continued to smoke. Eventually she started coughing and then vomiting up some old blood and presented to the ER. In the ER, she was found to have an abscess and was taken to the OR where she underwent a drainage procedure. During that hospitalization, she developed atrial fibrillation with RVR and Cardiology was consulted. She was transferred to [facility] to und ergo gastric stent placement. She was admitted to General Surgery team on this occasion after she w as transferred back from [facility] after placement of the gastric stent. Please see admis sandra history and physical dictated by Dr. Durand for further details. Internal Medicine team was con sulted for medical management. HOSPITAL COURSE: The patient was seen again by her hydrogen power plant manager, Dr. Keven Marroquin with regards to her anticoagulation. He recommended continuation of amiodarone and she was placed back on Xarelto b y Dr. Marroquin prior to her discharge. Dr. Charlton from Infectious Disease was consulted about the concern of a possible abdominal abscess. He recommended broad spectrum IV antibiotics for a protracted course. She underwent a PICC line brandi cement, IV meropenem was arranged for her. Eventually, she was stabilized and discharged by the primary team. Cardiology team continued to fol low along and the patient remained in normal sinus rhythm afterwards. PHYSICAL EXAMINATION: She was seen and examined by myself prior to discharge. [facility] of [facility] for further detail including [id number] interaction.
== END 2017-08-04 13:20 | disposition home or self-care (01) | DRG 863 ==
LOC: 2NO 17:14 → SURG A 07-31 13:12
PROVIDERS: ADMIT Surgery; ATTEND Surgery
PROC: 02HV33Z Insertion of Infusion Device into Superior Vena Cava, Percutaneous Approach (ICD-10-PCS; principal; 2017-08-01)
DX: T81.4XXA Infection following a procedure, initial encounter (principal); J90 Pleural effusion, not elsewhere classified; N17.9 Acute kidney failure, unspecified; I47.1 Supraventricular tachycardia; L02.818 Cutaneous abscess of other sites; K91.89 Other postprocedural complications and disorders of digestive system; Z79.01 Long term (current) use of anticoagulants; Z90.3 Acquired absence of stomach [part of]; F17.210 Nicotine dependence, cigarettes, uncomplicated; Z90.13 Acquired absence of bilateral breasts and nipples; I48.0 Paroxysmal atrial fibrillation; D64.9 Anemia, unspecified; Z85.3 Personal history of malignant neoplasm of breast; E66.9 Obesity, unspecified; Z68.32 Body mass index [BMI] 32.0-32.9, adult; B96.89 Other specified bacterial agents as the cause of diseases classified elsewhere
CPT/HCPCS: 36415; 36416; 36569; 71010; 71020; 74176; 80048; 80053; 85025; 85610; 85730; 90471; 90682; A4216; C1751; G0008; J1644; J1940; J2185; J2270; J2405; J2543; J3370; J7050; Q2036

== ENCOUNTER 2017-08-10 17:46 | Emergency (ER) | payer BC ==
[~2017-08-10 17:46] MED LIST: ISOVUE-370 76%-LOCM 1 ML ONE; Iopamidol 370 76% 50 ML VIAL FS ONE
--- OUTSIDE RECORDS SUMMARY | 2017-08-10 17:49 | XMS | Clinical Summary ---
:1955 Author Organization [facility] Address [address] [place] [address] Phone Care Team Providers Name Role Phone [...] Urine [facility] Narrative Performed at: - [facility] [id number] Cellophane Bath Mixer: Umer Hooper MD, Phone:[phone] CBC with platelet and differential (06/24/2017 11:36 [...] Specimen Performing Laboratory Blood [facility] Narrative Performed at:[id number] [employer]er: Umer Hooper MD, Phone:[phone] Hemoglobin A1c (06/24/2017 11:36 AM) Component Value Ref Range Hemoglobin A1C 5.3 4.8 - 5.6 % Comment: Pre-diabetes: 5.7 - 6.4 Diabetes: >6.4 Glycemic control for adults with diabetes: <7.0 Specimen Performing Laboratory Blood [facility] Narrative Performed at: [id number] [employer]er: Umer Hooper MD, Phone:[phone] Comprehensive metabolic panel (06/24/2017 11:36 AM) Component Value Ref Range Glucose 102(H) 65 - 99 mg/dL BUN, whole blood 15 6 - 24 mg/dL Creatinine 0.73 0.57 - 1.00 mg/dL EGFR Non-Afr. Lebanese 90 >59 mL/min/1.73 EGFR 104 >59 mL/min/1.73 [...] Blood [facility] Narrative Performed at: - [facility] [id number] [employer]er: Umer Hooper MD, Phone:[phone] ECG 12 lead (06/24/2017 11:03 AM) Component Value Ref Range Ventricular rate 76 Atrial rate 76 IN interval 152 QRSD interval 88 QT interval 372 QTC interval 418 P axis 1 75 QRS axis 1 59 T wave axis 52 EKG impression Normal sinus rhythm-Normal ECG-In automated comparison with ECG of 24-JUN-2017 11:03,-No significant change was found- Specimen Performing Laboratory [facility] [address] [place] [address] from Last 3 Months Insurance Payer Benefit Plan / Group Subscriber ID Type Phone Address BCBS BCBS CHOICE PPO/FEDERAL EMPL PPO [id number] PPO
--- OUTSIDE RECORDS SUMMARY | 2017-08-10 17:50 | XMS | Clinical Summary ---
:1955 Author Organization [facility] Address [address] [place] [address] Phone Care Team Providers Name Role Phone [...] Not on file Implants Implanted Type Area Titrator Device Expiration Model / Identifier Date Serial / Lot Stent Esoph Wallfelx [id number] - [id number] Stents-P N/A: [employer]: ENDO 09/11/2018 1675 / Implanted:Qty: 1 on 07/18/2017 by Cait Aiken MD eriphera Esophagus / l [id number] Stent Esoph Wallflex [id number] - Sgtin #[id number] Stents-P [employer]:ENDO 07/21/2018 1674 / Implanted:Qty: 1 on 07/23/2017 by Cait Aiken MD eriphera GTIN #[id number] / l [id number] Procedures Procedure Name Priority Date/Time Associated Diagnosis [...] 362 ms QTC Calculation(Bazett) 407 ms P [place] 64 degrees R [place] 9 degrees T [place] 68 degrees Normal sinus rhythm Low voltage [...] 362 ms QTC Calculation(Bazett) 407 ms P [place] 64 degrees R [place] 9 degrees T [place] 68 degrees Normal sinus rhythm Low voltage [...] Performing Laboratory Blood - Central Venous Line [address] [address] CBC with platelet count + automated diff [...] Performing Laboratory Blood - Central Venous Line [address] [address] CBC with platelet count + automated diff (07/28/2017 5:56 AM)Only the most recent of12 resultswithin the time period is included. Specimen Performing Laboratory Blood Narrative The following orders were created for panel order CBC with platelet count + automated diff. Procedure Abnormality Status --------- ------ CBC with platelet count ...[[id number]]AbnormalFinal result Please view results for these tests [...] Performing Laboratory Blood - Central Venous Line [address] [address] Sodium, random urine (07/26/2017 11:24 PM) Component Value Ref Range Sodium Urine 38 meq/L Specimen Performing Laboratory Urine - Urine, [place] [address] Narrative Reference Range: No Normals Creatinine, random urine (07/26/2017 11:24 PM) Component Value Ref Range Creatinine, Ur 73.7 mg/dL Specimen Performing Laboratory Urine - Urine, [place] [address] Narrative Reference Range: No Normals Urinalysis w/Microscopic (07/26/2017 11:24 PM)Only the most recent of2 resultswithin the time period is included. Component Value Ref Range Color, UA Light Yellow Clarity, UA Slightly Hazy Specific [place], UA 1.008 1.001 - 1.035 pH, UA [...] Performing Laboratory Urine - Urine, Clean Catch [address] [address] [place] upper gi including digital campaign manager KUB (07/25/2017 10:20 AM) Specimen Performing Laboratory [...] MD Report Verified Date/Time:07/25/2017 11:07:50 Reading Location: [facility] B1 C013X Ortho Consult Reading Room Procedure [...] Report Verified Date/Time: 07/25/2017 11:07:50 Reading Location: [facility] B1 C013X Ortho Consult Reading Room Eosinophil smear (07/25/2017 9:42 AM) Component Value Ref Range Eosinophil Smear No EOS seen No EOS seen Specimen Performing Laboratory Urine - Urine, [place] [address] US Renal with Doppler (07/24/2017 11:53 AM) [...] MD Report Verified Date/Time:07/24/2017 14:59:59 Reading Location: [place] [id number] Ultrasound Reading Room Procedure Note Interface, External [...] Report Verified Date/Time: 07/24/2017 14:59:59 Reading Location: [facility] P006J Ultrasound Reading Room Magnesium (07/24/2017 4:14 AM)Only the most recent of4 resultswithin the time period is included. Component Value Ref Range Magnesium 1.8 1.6 - 2.6 mg/dL Specimen Performing Laboratory Blood - Central Venous Line [address] [address] [place] director radiation oncology in or 30 minute increments (07/23/2017 8:53 PM) Specimen Performing Laboratory GE RIS Narrative FINAL REPORT Single fluoroscopic image. Fluoroscopy time 89.6 seconds. Fluoroscopy was not performed by the undersigned. Refer to procedure notes for diagnostic and therapeutic detail. Signed: Zain Montalvo MD Report Verified Date/Time:07/31/2017 13:42:22 Reading Location: [facility] C013W Consult Reading Room Procedure Note Interface, External Ris In - 07/31/2017 1:44 PM CDT FINAL REPORT Single fluoroscopic image. Fluoroscopy time 89.6 seconds. Fluoroscopy was not performed by the undersigned. Refer to procedure notes for diagnostic and therapeutic detail. Signed: Zain Montalvo MD Report Verified Date/Time: 07/31/2017 13:42:22 Reading Location: [facility] C013W Consult Reading Room RT OF PROCEDURE - ENDOSCOPY URL (07/23/2017 8:42 PM)Only the most recent of2 resultswithin the time period is included.Prealbumin (07/23/2017 9:19 AM) Component Value Ref Range Prealbumin 6(L) 14 - 45 mg/dL Specimen Performing Laboratory Blood - Central Venous Line [address] [address] POC-Glucose meter (07/23/2017 6:56 AM) Component Value Ref Range POC-Glucose Meter 106Comment:TESTED AT [address] 70 - 110 mg/dL [address] Specimen Performing Laboratory Blood [address] [address] Manual Differential (07/23/2017 4:46 AM)Only the most recent of4 resultswithin the time period is included. Component Value Ref Range Total Counted WBC Morphology Normal Platelet Morphology Normal RBC Morphology Normal Specimen Performing Laboratory Blood [address] [address] [place] upper GI (07/21/2017 5:17 PM) Specimen [...] MD Report Verified Date/Time:07/21/2017 17:33:52 Reading Location: [address] Consult Reading Room Procedure Note Interface, [...] Performing Laboratory Blood - Central Venous Line [address] [address] [address] abdomen/pelvis with IV contrast (07/19/2017 1:39 [...] MD Report Verified Date/Time:07/19/2017 14:29:04 Reading Location: [facility] B1 C013Y CT Body Reading Room Procedure [...] Report Verified Date/Time: 07/19/2017 14:29:04 Reading Location: [facility] C013Y CT Body Reading Room /aPTT (07/19/2017 3:33 AM)Only the most recent of3 resultswithin the time period is included. Component Value Ref Range Protime 15.8(H) 11.7 - 14.7 seconds INR 1.3 <=5.9 PTT 32.4 22.5 - 36.0 seconds Specimen Performing Laboratory Blood [address] [address] Narrative RECOMMENDED COUMADIN/WARFARIN INR THERAPY RANGES STANDARD [...] - 4.7 mg/dL Specimen Performing Laboratory Blood [address] [address] Hepatic function panel (07/19/2017 3:33 AM)Only the [...] - 55 U/L Specimen Performing Laboratory Blood [address] [address] Digoxin level (07/18/2017 4:14 PM) Component Value Ref Range Digoxin Lvl 0.5(L) 0.8 - 2.0 ng/mL Specimen Performing Laboratory Blood - Central Venous Line [address] [address] ECHOCARDIOGRAM REPORT - SCAN (07/18/2017 2:20 PM)Transesophageal echo (2016 8:12 AM) Component Value Ref Range Ejection Fraction Specimen Performing Laboratory SLE ECHO HEARTLAB MKCKESSON CPACS Narrative Transesophageal Echocardiography Report ([facility]) Demographics Patient Name KASIE EASTMAN Date of Study 07/18/2017 [id number] GenderFemale Visit Number [id number] RaceUnknon [id number] Number [id number] Number Date of Birth1955 Referring Physician Marcia Kennedy MD Age61 year(s) Fulfillment Specialist Darin Downs, Physician Fellow SALINAS Doherty Procedure [...] of Study 07/18/2017 Gender Female Visit Number [id number] Race Unknown Room Number C828 Number Date of 1955 Referring Physician Marcia Kennedy MD Age 61 year(s) Fulfillment Specialist Darin RCSDavid Interpreting Andrew Lua, Physician Fellow [...] Performing Laboratory Blood - Central Venous Line [address] [address] Blood culture #2 (07/18/2017 3:20 AM)Only the most recent of2 resultswithin the time period is included. Component Value Ref Range Result No growth in 5 days Specimen Performing Laboratory Blood - Central Venous Line [address] [address] XR chest 1 view portable / bedside [...] MD Report Verified Date/Time:07/17/2017 19:44:20 Reading Location: [facility] C013 Consult Reading Room Procedure Note [...] Report Verified Date/Time: 07/17/2017 19:44:20 Reading Location: [facility] B1 C013W Consult Reading Room Urine culture (07/17/2017 6:14 PM) Component Value Ref Range Result Result >100,000 col/mL Shama glabrata(A) Specimen Performing Laboratory Urine - Urine, Unspecified Source [address] [address] from Last 3 Months
[2017-08-10] MEDS ORDERED: Lorazepam 2 MG/ML VIAL ONE (18:31)
[2017-08-10 18:48] LABS: #Eosinphils 0.2 thou/uL (0.0-0.7); #Lymphocytes 1.9 thou/uL (1.20-3.40); #Monocytes 0.8 thou/uL (0.11-0.59); #Neutrophils 6.1 thou/uL (1.40-6.50); %Basophils 0.1 % (0.0-1.0); %Eosinophils 2.1 % (0.0-10.0); %Lymphocytes 21.1 % (21.0-51.0); %Monocytes 8.8 % (0.0-10.0); Hematocrit 37.4 % (36.0-47.0); Mean Platelet Volume 7.4 fL (7.4-10.4); Red Blood Cell (RBC) Count 3.92 mill/uL (4.20-5.40)
[2017-08-10 18:56] LABS: Prothrombin Time 14.9 SEC (12.0-14.7)
[2017-08-10 18:57] LABS: PTT 30.1 SEC (22.9-36.1)
[2017-08-10 19:04] LABS: ALT (SGPT) 37 U/L (8-55); AST (SGOT) 41 U/L (5-34); Alkaline Phosphatase 133 U/L (40-150); Anion Gap 14 mmol/L (10-20); BUN (Urea Nitrogen) 8 mg/dL (9.8-20.1); Bilirubin, Total 0.6 mg/dL (0.2-1.2); Calc. Creatinine Clearance 0 mL/min (70-130); Calcium 8.8 mg/dL (7.8-10.44); Carbon Dioxide 25 mmol/L (22-29); Chloride 102 mmol/L (98-107); Estimated GFR-MDRD 42; Globulin 4.6 g/dL (2.4-3.5); Iron 25 ug/dL (50-170); Protein, Total 7.6 g/dL (6.0-8.3)
--- NOTE | 2017-08-10 21:19 | CT ---
ABDOMEN AND PELVIC CT SCAN WITH IV CONTRAST: History: 62-year-old female with hematemesis four days after bariatric sleeve surgery. Patient complains of t enderness since her surgery, most painful in the left lower quadrant. Comparison: 07-16-17 CT FINDINGS: There is a moderate sized left pleural effusions with some parenchymal changes in the left lower lob e pleural based, evidence for some subsegmental atelectasis. Extensive post-operative changes are no varinder with an internal stent noted within the distal esophagus as well as extensive post-operative roberto nges of the stomach with what appear to be two percutaneous drainage catheters within a fluid and ai r collection measuring approximately 5 x 5.4 x 3 cm which is perigastric in location and is very mar kedly decreased in size when compared to the prior 07-16-17 study. There is a 1.4 x 3.7 cm diameter l ow density focus in the lateral aspect of the spleen which is somewhat triangular shaped and subcaps ular, possibly a small subcapsular seroma. Status post cholecystectomy. The liver, pancreas, adrenal glands are unremarkable. There appear to be a two small nonobstructing calculi in the left kidney b ut no evidence for acute obstruction. No evidence for significant abnormal fluid within the abdom en or pelvis peritoneal cavity. Normal appearing appendix. IMPRESSION: Post-surgical changes involving the stomach as well as an indwelling stent within the distal esophag us. There appear to be two percutaneous drainage catheters within an air and fluid collection betwee n the stomach and left lobe of the liver which is very markedly decreased in size when compared to [facility] 07-16-17 study. Small somewhat triangular shaped low density focus in the subcapsular region of th e spleen possibly a small subcapsular seroma. Moderate left pleural effusion and some left lower lob e parenchymal changes, probably subsegmental atelectasis. No free intraperitoneal fluid. Two small n onobstructing left renal calculi. No other significant process. POS: [facility]
== END 2017-08-10 22:00 | disposition home or self-care (01) ==
LOC: ERS 17:46
DX: R11.2 Nausea with vomiting, unspecified (principal); I48.91 Unspecified atrial fibrillation; F17.210 Nicotine dependence, cigarettes, uncomplicated
CPT/HCPCS: 36415; 74177; 80053; 82728; 83540; 83550; 85025; 85610; 85730; 86850; 86900; 86901; 93005; 96361; 96374; J2060

== ENCOUNTER 2017-08-13 15:56 | Inpatient (IN) | payer BC, SELFPAY ==
[2017-08-13] MEDS ORDERED: Sodium Chloride 0.9% 1,000 ML IV SCH (16:45)
[2017-08-13] MEDS ORDERED: Promethazine HCl 25 MG/ML VIAL SLOW IVP PRN (16:47)
[2017-08-13] MEDS ORDERED: Meropenem 2 GM, IV Admixture Fee-Chemo 1 UNITS in Sodium Chloride 0.9% 100 ML IVPB SCH (17:00)
[2017-08-13 17:14] LABS: #Basophils 0.1 thou/uL (0.0-0.2); #Eosinphils 0.1 thou/uL (0.0-0.7); #Monocytes 0.7 thou/uL (0.11-0.59); #Neutrophils 8.3 thou/uL (1.40-6.50); %Basophils 0.7 % (0.0-1.0); %Eosinophils 0.8 % (0.0-10.0); %Lymphocytes 18.3 % (21.0-51.0); %Monocytes 5.9 % (0.0-10.0); Hematocrit 39.1 % (36.0-47.0); Mean Platelet Volume 7.5 fL (7.4-10.4); Red Blood Cell (RBC) Count 4.11 mill/uL (4.20-5.40); White Blood Cell (WBC) Count 11.2 thou/uL (4.8-10.8)
[2017-08-13 17:36] LABS: ALT (SGPT) 34 U/L (8-55); AST (SGOT) 36 U/L (5-34); Alkaline Phosphatase 139 U/L (40-150); Anion Gap 16 mmol/L (10-20); BUN (Urea Nitrogen) 12 mg/dL (9.8-20.1); Bilirubin, Total 0.7 mg/dL (0.2-1.2); Calc. Creatinine Clearance 0 mL/min (70-130); Calcium 8.9 mg/dL (7.8-10.44); Carbon Dioxide 20 mmol/L (22-29); Chloride 102 mmol/L (98-107); Estimated GFR-MDRD 38; Globulin 4.7 g/dL (2.4-3.5); Protein, Total 7.9 g/dL (6.0-8.3)
--- OUTSIDE RECORDS SUMMARY | 2017-08-13 17:37 | XMS | Clinical Summary ---
:1955 Author Organization [facility] Address [address] [place] [address] Phone Care Team Providers Name Role Phone [...] 50 mLs 50 mL 0 07/28/2017 Active galsgow (ZOSYN) 3.375 (3.375 g total) gram/50 mL [...] Not on file Implants Implanted Type Area Ceiling Insulation Blower Device Expiration Model / Identifier Date Serial / Lot Stent Esoph Wallfelx [id number] 1675 - [id number] Stents-P N/A: [employer]: ENDO 09/11/2018 1675 / Implanted:Qty: 1 on 07/18/2017 by Cait Aiken MD eriphera Esophagus / l [id number] Stent Esoph Wallflex [id number] 1674 - Sgtin #[id number] Stents-P [employer]END[employer] 07/21/2018 1674 / Implanted:Qty: 1 on 07/23/2017 by Cait Aiken MD eriphera GTIN #[id number] / l [id number] Procedures Procedure Name Priority Date/Time Associated Diagnosis [...] 362 ms QTC Calculation(Bazett) 407 ms P [place] 64 degrees R [place] 9 degrees T [place] 68 degrees Normal sinus rhythm Low voltage [...] 362 ms QTC Calculation(Bazett) 407 ms P [place] 64 degrees R [place] 9 degrees T [place] 68 degrees Normal sinus rhythm Low voltage [...] Performing Laboratory Blood - Central Venous Line [address] [address] CBC with platelet count + automated diff [...] Performing Laboratory Blood - Central Venous Line [address] [address] CBC with platelet count + automated diff (07/28/2017 5:56 AM)Only the most recent of12 resultswithin the time period is included. Specimen Performing Laboratory Blood Narrative The following orders were created for panel order CBC with platelet count + automated diff. Procedure Abnormality Status --------- ------ CBC with platelet count ...[[id number]]AbnormalFinal result Please view results for these tests [...] Performing Laboratory Blood - Central Venous Line [address] [address] Sodium, random urine (07/26/2017 11:24 PM) Component Value Ref Range Sodium Urine 38 meq/L Specimen Performing Laboratory Urine - Urine, [place] [address] Narrative Reference Range: No Normals Creatinine, random urine (07/26/2017 11:24 PM) Component Value Ref Range Creatinine, Ur 73.7 mg/dL Specimen Performing Laboratory Urine - Urine, [place] [address] Narrative Reference Range: No Normals Urinalysis w/Microscopic (07/26/2017 11:24 PM)Only the most recent of2 resultswithin the time period is included. Component Value Ref Range Color, UA Light Yellow Clarity, UA Slightly Hazy Specific [place], UA 1.008 1.001 - 1.035 pH, UA [...] Performing Laboratory Urine - Urine, Clean Catch [address] [address] [place] upper gi including recreational therapy technician KUB (07/25/2017 10:20 AM) Specimen Performing Laboratory [...] MD Report Verified Date/Time:07/25/2017 11:07:50 Reading Location: [facility] B1 C013X Ortho Consult Reading Room Procedure [...] Report Verified Date/Time: 07/25/2017 11:07:50 Reading Location: [facility] B1 C013X Ortho Consult Reading Room Eosinophil smear (07/25/2017 9:42 AM) Component Value Ref Range Eosinophil Smear No EOS seen No EOS seen Specimen Performing Laboratory Urine - Urine, [place] [address] US Renal with Doppler (07/24/2017 11:53 AM) [...] MD Report Verified Date/Time:07/24/2017 14:59:59 Reading Location: [place] [id number] Ultrasound Reading Room Procedure Note Interface, External [...] Report Verified Date/Time: 07/24/2017 14:59:59 Reading Location: [facility] P006J Ultrasound Reading Room Magnesium (07/24/2017 4:14 AM)Only the most recent of4 resultswithin the time period is included. Component Value Ref Range Magnesium 1.8 1.6 - 2.6 mg/dL Specimen Performing Laboratory Blood - Central Venous Line [address] [address] [place] cardiac cath lab radiology technologist in or 30 minute increments (07/23/2017 8:53 PM) Specimen Performing Laboratory GE RIS Narrative FINAL REPORT Single fluoroscopic image. Fluoroscopy time 89.6 seconds. Fluoroscopy was not performed by the undersigned. Refer to procedure notes for diagnostic and therapeutic detail. Signed: Zain Montalvo MD Report Verified Date/Time:07/31/2017 13:42:22 Reading Location: [facility] C013W Consult Reading Room Procedure Note Interface, External Ris In - 07/31/2017 1:44 PM CDT FINAL REPORT Single fluoroscopic image. Fluoroscopy time 89.6 seconds. Fluoroscopy was not performed by the undersigned. Refer to procedure notes for diagnostic and therapeutic detail. Signed: Zain Montalvo MD Report Verified Date/Time: 07/31/2017 13:42:22 Reading Location: [facility] C013W Consult Reading Room RT OF PROCEDURE - ENDOSCOPY URL (07/23/2017 8:42 PM)Only the most recent of2 resultswithin the time period is included.Prealbumin (07/23/2017 9:19 AM) Component Value Ref Range Prealbumin 6(L) 14 - 45 mg/dL Specimen Performing Laboratory Blood - Central Venous Line [address] [address] POC-Glucose meter (07/23/2017 6:56 AM) Component Value Ref Range POC-Glucose Meter 106Comment:TESTED AT [address] [address] - 110 mg/dL [address] Specimen Performing Laboratory Blood [address] [address] Manual Differential (07/23/2017 4:46 AM)Only the most recent of4 resultswithin the time period is included. Component Value Ref Range Total Counted WBC Morphology Normal Platelet Morphology Normal RBC Morphology Normal Specimen Performing Laboratory Blood [address] [address] [place] upper GI (07/21/2017 5:17 PM) Specimen [...] MD Report Verified Date/Time:07/21/2017 17:33:52 Reading Location: [address] Consult Reading Room Procedure Note Interface, [...] Performing Laboratory Blood - Central Venous Line [address] [address] [address] abdomen/pelvis with IV contrast (07/19/2017 1:39 [...] MD Report Verified Date/Time:07/19/2017 14:29:04 Reading Location: [facility] B1 C013Y CT Body Reading Room Procedure [...] Report Verified Date/Time: 07/19/2017 14:29:04 Reading Location: [facility] C013Y CT Body Reading Room /aPTT (07/19/2017 3:33 AM)Only the most recent of3 resultswithin the time period is included. Component Value Ref Range Protime 15.8(H) 11.7 - 14.7 seconds INR 1.3 <=5.9 PTT 32.4 22.5 - 36.0 seconds Specimen Performing Laboratory Blood [address] [address] Narrative RECOMMENDED COUMADIN/WARFARIN INR THERAPY RANGES STANDARD [...] - 4.7 mg/dL Specimen Performing Laboratory Blood [address] [address] Hepatic function panel (07/19/2017 3:33 AM)Only the [...] - 55 U/L Specimen Performing Laboratory Blood [address] [address] Digoxin level (07/18/2017 4:14 PM) Component Value Ref Range Digoxin Lvl 0.5(L) 0.8 - 2.0 ng/mL Specimen Performing Laboratory Blood - Central Venous Line [address] [address] ECHOCARDIOGRAM REPORT - SCAN (07/18/2017 2:20 PM)Transesophageal echo (2016 8:12 AM) Component Value Ref Range Ejection Fraction Specimen Performing Laboratory SLE ECHO HEARTLAB MKCKESSON CPACS Narrative Transesophageal Echocardiography Report ([facility]) Demographics Patient Name KASIE EASTMAN Date of Study 07/18/2017 [id number] GenderFemale Visit Number [id number] RaceUnknon [id number] Number [id number] Number Date of Birth1955 Referring Physician Marcia Kennedy MD Age61 year(s) Bonderizer Operator Darin Downs, Physician Fellow SALINAS Doherty Procedure [...] of Study 07/18/2017 Gender Female Visit Number [id number] Race Unknown Room Number C828 Number Date of 1955 Referring Physician Marcia Kennedy MD Age 61 year(s) Bonderizer Operator Darin RCSDavid Interpreting Andrew Lua, Physician Fellow [...] Performing Laboratory Blood - Central Venous Line [address] [address] Blood culture #2 (07/18/2017 3:20 AM)Only the most recent of2 resultswithin the time period is included. Component Value Ref Range Result No growth in 5 days Specimen Performing Laboratory Blood - Central Venous Line [address] [address] XR chest 1 view portable / bedside [...] MD Report Verified Date/Time:07/17/2017 19:44:20 Reading Location: [facility] C013 Consult Reading Room Procedure Note Interface, [...] Report Verified Date/Time: 07/17/2017 19:44:20 Reading Location: [facility] B1 C013W Consult Reading Room Urine culture (07/17/2017 6:14 PM) Component Value Ref Range Result Result >100,000 col/mL Shama glabrata(A) Specimen Performing Laboratory Urine - Urine, Unspecified Source [address] [address] from Last 3 Months
[2017-08-13] MEDS: Ondansetron HCl/PF 4 MG/2 ML Vial SLOW IVP PRN ×2 (17:40→23:48)
[2017-08-13] MEDS: Carvedilol 6.25 MG TAB PO SCH ×2 (17:48→20:49)
[2017-08-13] MEDS ORDERED: Meropenem 2 GM, Admixture Fee 1 EACH in Sodium Chloride 0.9% 100 ML IVPB SCH (18:00)
[2017-08-13 18:36] VITALS: BMI 27.8
--- NOTE | 2017-08-13 18:55 | HP ---
CHIEF COMPLAINT: Dehydration and vomiting. HISTORY: The patient is a 62-year-old female who underwent a sleeve gastrectomy on 07/07/2017. Two weeks postop, she was found to have a leak. She underwent laparoscopic drainage of abscess with EG D and was referred to [place] where a gastric stent was placed. On Friday, she came to the emerge ncy room complaining of hematemesis and they did a CT scan showing that the abscess cavity had dimin ished significantly and her counts were fine and she was let go from the ER. Over the last few days , she has had trouble drinking fluids and her urine output is very concentrated and minimal. She is also having diarrhea and she had an accident in our waiting room. PAST MEDICAL HISTORY: Significant for history of breast cancer, history of atrial fibrillation with rapid ventricular response. She was on anticoagulants as well as Xarelto. PAST SURGICAL HISTORY: She has had hysterectomy, bilateral shoulder surgery, reconstructed pelvic s urgery, did mesh erosion. She has had double mastectomy for breast cancer. She has had cholecystec eliseo. She has had cardiac ablation and she had sleeve as well as drainage of abscess. MEDICATIONS: Include Coreg, Celexa, Xarelto, pantoprazole, ondansetron, tramadol, Tylenol #3. ALLERGIES: No known drug allergies. SOCIAL HISTORY: She is . She continues to smoke. She uses occasional alcohol. FAMILY HISTORY: Father of heart disease. PHYSICAL EXAMINATION: VITAL SIGNS: Blood pressure 107/71, pulse 114, her weight is 207, down 35 pounds. GENERAL: She is awake, alert, but very weak. HEENT: Unremarkable. LUNGS: Clear. HEART: Regular rate and rhythm. ABDOMEN: Soft, mildly tender. She has two BETTY drains draining thick purulent fluid. EXTREMITIES: Good pulses. No pedal edema. ASSESSMENT: Dehydration. PLAN: Admit, monitor cardiac activity, fluid resuscitation.
[2017-08-13] MEDS: Rivaroxaban 10 MG TAB PO SCH (19:23)
[2017-08-13] MEDS: D5 1/2 NS w/20 mEq KCL 1,000 ML IV SCH ×2 (19:48→20:45)
[2017-08-13] MEDS: Meropenem 2 GM, Admixture Fee 1 EACH in Sodium Chloride 0.9% 100 ML IVPB SCH (20:48)
[2017-08-14] MEDS: Meropenem 2 GM, Admixture Fee 1 EACH in Sodium Chloride 0.9% 100 ML IVPB SCH (03:45)
[2017-08-14] MEDS ORDERED: Rivaroxaban 10 MG TAB PO SCH (06:00)
[2017-08-14] MEDS: D5 1/2 NS w/20 mEq KCL 1,000 ML IV SCH ×3 (06:23→20:01)
[2017-08-14] MEDS: Citalopram 20 MG TAB PO SCH (08:08)
[2017-08-14] MEDS: Carvedilol 6.25 MG TAB PO SCH ×2 (08:08→20:25)
[2017-08-14] MEDS: Meropenem 1 GM, Admixture Fee 1 EACH in Sterile Water 20 ML SLOW IVP SCH ×2 (08:30→20:30)
[2017-08-14] MEDS: Ondansetron HCl/PF 4 MG/2 ML Vial SLOW IVP PRN ×2 (08:42→18:03)
[2017-08-14] MEDS ORDERED: Meropenem 1 GM in Sodium Chloride 0.9% 100 ML IVPB SCH (09:00)
[2017-08-14] MEDS: Sodium Chloride 0.9% 500 ML IV SCH ×5 (10:42→20:24)
--- NOTE | 2017-08-14 11:49 | PDOC.PN ---
- Subjective Encounter Start Date: 08/14/17 Encounter Start Time: 09:40 Pt seen for followup re: hypertension. Denies chest pain, shortness of breath, fevers or chills. No nausea or vomiting. - Objective MAR Reviewed: Yes Vital Signs & Weight: Vital Signs (12 hours) Temp Pulse Resp BP BP Pulse Ox 08/14/17 08:08 189/92 H 08/14/17 07:45 98.3 F 82 20 189/92 H 08/14/17 04:00 98.4 F 83 16 128/66 94 L 08/14/17 00:00 98.6 F 85 16 121/61 92 L Weight Weight 212 lb 4.8 oz I&O: 08/13/17 08/14/17 08/15/17 06:59 06:59 06:59 Intake Total 2380 Output Total 340 Balance 2039 Result Diagrams: 08/13/17 17:04 08/13/17 17:04 EKG Reviewed by me: Yes (Tele: NSR) Phys Exam - Physical Examination Constitutional: NAD HEENT: moist MMs Neck: supple Respiratory: clear to auscultation bilateral Cardiovascular: RRR Gastrointestinal: soft, non-tender drains+ Neurological: moves all 4 limbs Psychiatric: normal affect Skin: no rash Dx/Plan (1) Hypertension Code(s): I10 - ESSENTIAL (PRIMARY) HYPERTENSION Status: Chronic (2) Chronic renal failure Status: Chronic (3) Paroxysmal atrial fibrillation Code(s): I48.0 - PAROXYSMAL ATRIAL FIBRILLATION Status: Chronic - Plan * . Monitor vital signs, as antihypertensives as needed. Creatinine elevated during last admission, improving. Hemoglobin normal today (was anemic in the past). In normal sinus rhythm on tele monitor. Review of Systems - Review of Systems Respiratory: negative: Cough, Dry, Shortness of Breath, Hemoptysis, SOB with Excertion, Pleuritic Pain, Sputum, Wheezing Cardiovascular: negative: Chest Pain, Palpitations, Orthopnea, Paroxysmal Noc. Dyspnea, Edema, Light Headedness - Medications/Allergies Allergies/Adverse Reactions: Allergies Allergy/AdvReac Type Severity Reaction Status Date / Time No Known Allergies Allergy Verified 07/16/17 14:20 Medications: Current Medications Hydrocodone Bitart/Acetaminophen (Hydrocodone-Apap 7.5-325/15) 15 ml PO Q4H PRN PRN Reason: Mild-Moderate Pain (1-5) Carvedilol (Coreg) 12.5 mg PO QID [facility] Last Admin: 08/14/17 08:08 Dose: 12.5 mg Citalopram Hydrobromide (Celexa) 40 mg PO DAILY [facility] Last Admin: 08/14/17 08:08 Dose: 40 mg Potassium Chloride/Dextrose/Sod Cl (D5 1/2 Ns W/20 Meq Kcl) 1,000 mls @ 125 mls /hr IV .Q8H [facility] Last Admin: 08/14/17 06:23 Dose: 1,000 mls Meropenem 1 gm/ Miscellaneous Medication 1 each/ Sterile Water 20 mls @ 240 mls /hr SLOW IVP Q12HR [facility] Last Admin: 08/14/17 08:30 Dose: 20 mls Sodium Chloride (Normal Saline 0.9%) 500 mls @ 999 mls/hr IV .Q31M [facility] Last Admin: 08/14/17 10:42 Dose: 500 mls Morphine Sulfate (Morphine) 2 mg SLOW IVP Q1H PRN PRN Reason: Mild-Moderate Pain (1-5) Last Admin: 08/13/17 23:54 Dose: 2 mg Morphine Sulfate (Morphine) 4 mg SLOW IVP Q1H PRN PRN Reason: Moderate to Severe Pain (6-10) Ondansetron HCl (Zofran) 4 mg SLOW IVP Q8H PRN PRN Reason: Nausea/Vomiting Last Admin: 08/14/17 08:42 Dose: 4 mg Pantoprazole Sodium (Protonix) 40 mg IVP DAILY [facility] Promethazine HCl (Phenergan) 12.5 mg SLOW IVP Q2H PRN PRN Reason: Nausea/Vomiting Last Admin: 08/13/17 20:58 Dose: 12.5 mg Rivaroxaban (Xarelto) 20 mg PO 1800 [facility] Last Admin: 08/13/17 19:23 Dose: Not Given Sodium Chloride (Flush - Normal Saline) 10 ml IVF Q12HR [facility] Last Admin: 08/14/17 08:07 Dose: 10 ml Sodium Chloride (Flush - Normal Saline) 10 ml IVF PRN PRN PRN Reason: Saline Flush
[2017-08-14] MEDS: Morphine 4 MG/ML Carpuject SLOW IVP PRN ×2 (11:51→20:00)
[2017-08-14] MEDS: Rivaroxaban 10 MG TAB PO SCH (18:04)
[2017-08-14] MEDS: Carvedilol 25 MG TAB PO SCH (18:05)
--- NOTE | 2017-08-14 18:32 | CON ---
DATE OF CONSULTATION: 08/14/2017 CONSULTING PHYSICIAN: Alli Durand M.D. REASON FOR CONSULTATION: Acute kidney injury. REASON FOR ADMISSION: Vomiting. HISTORY OF PRESENT ILLNESS: This is a 62-year-old female with a history of breast cancer, atrial fi brillation, currently in normal sinus rhythm, came to the hospital with vomiting. She recently had a sleeve surgery for weight loss and has been having issues with infection. She started having vomi ting, came to the hospital and was found to have elevated creatinine, Nephrology was consulted. The patient denies any diarrhea, no chest pain, no shortness of breath, no nausea or vomiting today. T he patient is slightly feeling better and she is on IV fluids. No skin rash, no fever or chills, no sinus drainage. PAST MEDICAL HISTORY: Positive for breast cancer and atrial fibrillation. PAST SURGICAL HISTORY: Hysterectomy, bilateral shoulder surgery, pelvic surgery, bilateral mastecto my, cholecystectomy, cardiac ablation. HOME MEDICATIONS: Coreg and Xarelto. ALLERGIES: No known drug allergies. SOCIAL HISTORY: No smoking, alcohol, or illicit drug abuse. FAMILY HISTORY: No history of any kidney disease. REVIEW OF SYSTEMS: The following complete review of systems was negative, unless otherwise mentione d in the HPI or below: Constitutional: Weight loss or gain, ability to conduct usual activities. Skin: Rash, itching. Eyes: Double vision, pain. ENT/Mouth: Nose bleeding, neck stiffness, pain, tenderness. Cardiovascular: Palpitations, dyspnea on exertion, orthopnea. Respiratory: Shortne ss of breath, wheezing, cough, hemoptysis, fever or night sweats. Gastrointestinal: Poor appetite, abdominal pain, heartburn, nausea, vomiting, constipation, or diarrhea. Genitourinary: Urgency, fr equency, dysuria, nocturia. Musculoskeletal: Pain, swelling. Neurologic/Psychiatric: Anxiety, depr ession. Allergy/Immunologic: Skin rash, bleeding tendency. PHYSICAL EXAMINATION: GENERAL: This is a well-developed female, very lethargic. VITAL SIGNS: Temperature 98.9, pulse 82, respiratory rate 22, blood pressure 141/60. HEENT: Atraumatic, normocephalic. Oral mucosa is dry. NECK: Supple, no masses. CARDIOVASCULAR: S1, S2 heard. Rate and rhythm regular. RESPIRATORY: Clear to auscultation. ABDOMEN: Soft. MUSCULOSKELETAL: No tenderness. No edema. DERMATOLOGIC: No skin rash. NEUROLOGIC: Alert and awake. PSYCHIATRIC: Mood and affect normal. LABORATORY DATA: Hemoglobin is 12.4. Potassium is 3.6, BUN is 12, creatinine is 1.4, sodium is 134 . ASSESSMENT AND PLAN: 1. Acute kidney injury most likely from volume depletion. Agree with hydration, cautious monitorin g of electrolytes. 2. Mild hypokalemia. Agree with potassium supplements. 3. Hyponatremia. 4. Acidosis. Continue IV fluids. 5. Elevated liver enzymes. 6. Hypoalbuminemia with mild protein-energy malnutrition. Agree with protein supplements. 7. Continue IV fluids. Avoid nephrotoxins. Renally dose all the medicines. Recommend to avoid mo rphine if renal function is not getting better. We will follow. Thank you for the consult.
--- NOTE | 2017-08-14 20:54 | CON ---
DATE OF CONSULTATION: 08/14/2017 REASON FOR CONSULTATION: Nausea, vomiting, hematemesis and intra-abdominal inflammatory process. HISTORY OF PRESENT ILLNESS: A 62-year-old whom I had recently seen with a history of atrial fibrillation/flutter previously on anticoagulation, who recently had a sleeve gastrectomy and a diagnosis of leak at the anastomotic site with an abscess formation, had a stent placed for diversion/protection of the area of leak and allow healing. She had 2 drainage tubes placed in the abscess location via laparoscopy and she has been placed on a liquid diet only. The organisms included a polymicrobial patsy as described below. She was being given meropenem in the outpatient setting via PICC line and then she developed vomiting and hematemesis. A followup CT scan showed reduction of the size of the abscess cavity, but she had developed volume depletion from the vomiting. She is still having difficulty drinking fluids, had a concentrated urine, some diarrhea. The patient was admitted, given IV fluids and meropenem was continued. She feels better at this time. No more vomiting. No headaches , visual symptoms, sore throat, odynophagia, dysphagia. No abdominal pain. She still has drains in place with having to empty the drains on a daily basis at least one of them. Voiding without difficulty. She has some stool output, mostly when she urinates. PAST MEDICAL HISTORY: Atrial fibrillation/flutter, anticoagulation; cardiac ablation; cholecystectomy; mastectomy for management of breast cancer; sleeve gastrectomy with leak; cervical fusion; percutaneous drainage of the abscess formation in the abdominal area with polymicrobial patsy. MEDICATIONS: Meropenem, Celexa, Lopressor, Protonix, Zosyn, and vancomycin. She is on ondansetron, pantoprazole, potassium. PHYSICAL EXAMINATION: VITAL SIGNS: The patient has been afebrile since admission, blood pressure 140/ 60, pulse 82, respirations 20-22, O2 sat 92%. GENERAL: Appears in no distress. Awake, alert and oriented. SKIN: Shows the two drains in the abdominal area and the PICC line in right upper extremity without any abnormality noted. No lymphadenopathy. HEENT: Ocular movements are conjugate. Sclerae white. Oral cavity moist. NECK: Supple. LUNGS: With symmetric clear breath sounds. HEART: S1, S2, regular rate. No S3 or S4. ABDOMEN: Flat, mildly tender in the left upper quadrant. No distention. Bowel sounds are present, but not abnormal. No bladder distention. EXTREMITIES: No joint inflammatory activity. Moves all extremities equally. NEUROLOGIC: Plantar responses are flexure. LABORATORY DATA: White cell count 11.2, hemoglobin 12.4, platelets 398. Chemistry: Sodium 134, creatinine 1.41, which is higher than baseline. GFR down to 38. Previous microbiology had revealed anaerobes, Citrobacter, and Enterobacter cloacae. ASSESSMENT AND DISCUSSION: Atrial fibrillation/atrial flutter in the past with ablation, previously on anticoagulation, sleeve gastrectomy and then leak, intraabdominal abscess, status post drainage and stenting to allow healing and currently on antimicrobial therapy with meropenem with improvement of the abscess cavity sizes. Plan is to continue meropenem, adjust dosage in view of decreasing GFR, volume replacement, consider checking thiamine levels and vitamin replacement would be important to prevent complications related to thiamine deficiency and other micro nutrient deficiencies. The patient to be continued on antimicrobial therapy for another week or so or longer depending on clinical progress. Evidently, the source control, i.e., leak resolution is of paramount importance for the long-term prognosis. MTDD
[2017-08-15] MEDS: Ondansetron HCl/PF 4 MG/2 ML Vial SLOW IVP PRN (03:58)
[2017-08-15 05:35] LABS: #Basophils 0.1 thou/uL (0.0-0.2); #Eosinphils 0.6 thou/uL (0.0-0.7); #Monocytes 0.7 thou/uL (0.11-0.59); #Neutrophils 3.3 thou/uL (1.40-6.50); %Lymphocytes 30.6 % (21.0-51.0); Hematocrit 34.9 % (36.0-47.0); Mean Platelet Volume 7.6 fL (7.4-10.4); Red Blood Cell (RBC) Count 3.66 mill/uL (4.20-5.40); White Blood Cell (WBC) Count 6.7 thou/uL (4.8-10.8)
[2017-08-15 05:42] LABS: Anion Gap 13 mmol/L (10-20); BUN (Urea Nitrogen) 6 mg/dL (9.8-20.1); Calc. Creatinine Clearance 89 mL/min (70-130); Calcium 8.1 mg/dL (7.8-10.44); Carbon Dioxide 22 mmol/L (22-29); Chloride 106 mmol/L (98-107); Estimated GFR-MDRD 56
[2017-08-15] MEDS: D5 1/2 NS w/20 mEq KCL 1,000 ML IV SCH ×2 (06:23→09:31)
[2017-08-15] MEDS: Carvedilol 25 MG TAB PO SCH ×2 (08:14→17:15)
[2017-08-15] MEDS: Citalopram 20 MG TAB PO SCH (08:14)
[2017-08-15] MEDS: Pantoprazole 40 MG VIAL IVP SCH (08:17)
[2017-08-15] MEDS: Meropenem 1 GM, Admixture Fee 1 EACH in Sterile Water 20 ML SLOW IVP SCH ×2 (08:28→22:05)
[2017-08-15] MEDS ORDERED: Ondansetron ODT 8 MG TAB SL PRN (10:14)
[2017-08-15] MEDS: Promethazine 25 MG TAB PO PRN ×3 (10:41→21:40)
--- NOTE | 2017-08-15 10:53 | PRG ---
DATE OF SERVICE: 08/15/2017 SUBJECTIVE: Patient was seen and examined at bedside and overnight events noted. Patient denies an y shortness of breath or chest pain or palpitation. No history of nausea or vomiting or diarrhea or fever or chills or cramps. OBJECTIVE: GENERAL: This is a well built female in no apparent distress. VITAL SIGNS: Temperature 98, pulse 87, respiratory rate 16, blood pressure 134/60. HEENT: Atraumatic, normocephalic. Oral mucosa is moist. NECK: Supple. CARDIOVASCULAR: S1 and S2 heard, rate and rhythm regular. RESPIRATORY: Clear to auscultation. GASTROINTESTINAL: Abdomen is soft. MUSCULOSKELETAL: No tenderness, no edema. DERMATOLOGIC: No skin rash. NEUROLOGIC: Alert and awake and oriented X3. No focal neurologic deficits. Moving all the extremi ties. PSYCHIATRIC: Mood and affect normal. LABORATORY DATA: Potassium is 4.0, BUN is 6, creatinine 1.01. ASSESSMENT AND PLAN: 1. Acute kidney injury. The patient is much better. Continue hydration. Reduce IV fluids to 50 m L per hour and monitor one more day. 2. Acidosis. 3. Hypoalbuminemia. 4. Hyponatremia. Overall, labs are looking better. Continue hydration as tolerated.
[2017-08-15] MEDS: Hydrocodone-Acetamin 15 ML UDCUP PO PRN ×3 (12:07→22:34)
--- NOTE | 2017-08-15 12:29 | PDOC.PN ---
- Subjective Encounter Start Date: 08/15/17 Encounter Start Time: 08:00 Pt seen for followup re: hypertension. Denies chest pain, shortness of breath, fevers or chills. - Objective MAR Reviewed: Yes Vital Signs & Weight: Vital Signs (12 hours) Temp Pulse Resp BP Pulse Ox 08/15/17 08:15 98.6 F 97 16 132/64 92 L 08/15/17 04:00 98.8 F 87 16 134/65 92 L Weight Weight 211 lb I&O: 08/14/17 08/15/17 08/16/17 06:59 06:59 06:59 Intake Total 2380 900 Output Total 340 380 Balance 2040 520 Result Diagrams: 08/15/17 04:53 08/15/17 04:53 EKG Reviewed by me: Yes (Tele: NSR) Phys Exam - Physical Examination Constitutional: NAD HEENT: moist MMs Neck: supple Respiratory: clear to auscultation bilateral Cardiovascular: RRR Gastrointestinal: soft Musculoskeletal: pulses present Neurological: moves all 4 limbs Psychiatric: normal affect Skin: no rash Dx/Plan (1) Hypertension Code(s): I10 - ESSENTIAL (PRIMARY) HYPERTENSION Status: Chronic (2) Paroxysmal atrial fibrillation Code(s): I48.0 - PAROXYSMAL ATRIAL FIBRILLATION Status: Resolved (3) Chronic renal failure Status: Resolved - Plan * . Monitor vital signs, titrate antihypertensives as needed. Renal failure resolved. Pt continues to be in sinus rhythm. Review of Systems - Review of Systems Cardiovascular: negative: Chest Pain, Palpitations, Orthopnea, Paroxysmal Noc. Dyspnea, Edema, Light Headedness Gastrointestinal: negative: Nausea, Vomiting, Abdominal Pain, Diarrhea, Constipation, Melena, Hematochezia - Medications/Allergies Allergies/Adverse Reactions: Allergies Allergy/AdvReac Type Severity Reaction Status Date / Time No Known Allergies Allergy Verified 07/16/17 14:20 Medications: Current Medications Hydrocodone Bitart/Acetaminophen (Hydrocodone-Apap 7.5-325/15) 15 ml PO Q4H PRN PRN Reason: Mild-Moderate Pain (1-5) Last Admin: 08/15/17 12:07 Dose: 15 ml Carvedilol (Coreg) 25 mg PO BID-[facility] Last Admin: 08/15/17 08:14 Dose: 25 mg Citalopram Hydrobromide (Celexa) 40 mg PO DAILY [facility] Last Admin: 08/15/17 08:14 Dose: 40 mg Meropenem 1 gm/ Miscellaneous Medication 1 each/ Sterile Water 20 mls @ 240 mls /hr SLOW IVP Q12HR [facility] Last Admin: 08/15/17 08:28 Dose: 20 mls Potassium Chloride/Dextrose/Sod Cl (D5 1/2 Ns W/20 Meq Kcl) 1,000 mls @ 50 mls/ hr IV .Q20H [facility] Last Admin: 08/15/17 09:31 Dose: Not Given Morphine Sulfate (Morphine) 2 mg SLOW IVP Q1H PRN PRN Reason: Mild-Moderate Pain (1-5) Last Admin: 08/15/17 08:15 Dose: 2 mg Morphine Sulfate (Morphine) 4 mg SLOW IVP Q1H PRN PRN Reason: Moderate to Severe Pain (6-10) Last Admin: 08/14/17 20:00 Dose: 4 mg Ondansetron HCl (Zofran) 4 mg SLOW IVP Q8H PRN PRN Reason: Nausea/Vomiting Last Admin: 08/15/17 03:58 Dose: 4 mg Ondansetron HCl (Zofran Odt) 8 mg SL Q6H PRN PRN Reason: Nausea/Vomiting Pantoprazole Sodium (Protonix) 40 mg IVP DAILY [facility] Last Admin: 08/15/17 08:17 Dose: 40 mg Promethazine HCl (Phenergan) 12.5 mg SLOW IVP Q2H PRN PRN Reason: Nausea/Vomiting Last Admin: 08/13/17 20:58 Dose: 12.5 mg Promethazine HCl (Phenergan) 25 mg PO Q4H PRN PRN Reason: Nausea/Vomiting Last Admin: 08/15/17 10:41 Dose: 25 mg Rivaroxaban (Xarelto) 20 mg PO 1800 [facility] Last Admin: 08/14/17 18:04 Dose: 20 mg Sodium Chloride (Flush - Normal Saline) 10 ml IVF Q12HR [facility] Last Admin: 08/15/17 08:50 Dose: Not Given Sodium Chloride (Flush - Normal Saline) 10 ml IVF PRN PRN PRN Reason: Saline Flush
[2017-08-15] MEDS: Rivaroxaban 10 MG TAB PO SCH (17:15)
[2017-08-15] MEDS ORDERED: MEROPENEM 1 GM/50 ML 1 GM in Premix Bag 1 BAG IVPB SCH (21:45)
[2017-08-16] MEDS: D5 1/2 NS w/20 mEq KCL 1,000 ML IV SCH
[2017-08-16] MEDS: Carvedilol 25 MG TAB PO SCH (08:18)
[2017-08-16] MEDS: Pantoprazole 40 MG VIAL IVP SCH (08:18)
[2017-08-16] MEDS: Citalopram 20 MG TAB PO SCH (08:19)
[2017-08-16 08:27] VITALS: BP 147/70; TEMP 98.2
[2017-08-16] MEDS: Hydrocodone-Acetamin 15 ML UDCUP PO PRN (08:27)
[2017-08-16] MEDS: Promethazine 25 MG TAB PO PRN (08:27)
[2017-08-16] MEDS ORDERED: MEROPENEM 1 GM/50 ML 1 GM in Premix Bag 1 BAG IVPB SCH (09:00)
--- NOTE | 2017-08-16 11:10 | PDOC.PN ---
- Subjective Encounter Start Date: 08/16/17 Encounter Start Time: 08:00 Pt seen for followup re; hypertension. Denies chest pain, shortness of breath, fevers or chills. - Objective MAR Reviewed: Yes Vital Signs & Weight: Vital Signs (12 hours) Temp Pulse Resp BP BP Pulse Ox 08/16/17 08:27 98.2 F 90 18 147/70 H 94 L 08/16/17 04:05 93 L 08/16/17 04:00 98.7 F 84 16 143/67 H 93 L Weight Weight 211 lb 14.4 oz I&O: 08/15/17 08/16/17 08/17/17 06:59 06:59 05:59 Intake Total 900 1950 Output Total 380 1370 Balance 520 580 Result Diagrams: 08/15/17 04:53 08/15/17 04:53 EKG Reviewed by me: Yes (Tele: NSR) Phys Exam - Physical Examination Constitutional: NAD HEENT: moist MMs Neck: supple Cardiovascular: RRR Gastrointestinal: soft Neurological: moves all 4 limbs Psychiatric: normal affect Skin: no rash Dx/Plan (1) Hypertension Code(s): I10 - ESSENTIAL (PRIMARY) HYPERTENSION Status: Chronic (2) Chronic renal failure Status: Resolved - Plan DVT proph w/SCDs * . Monitor vital signs. Plan to discharge pt noted, will sign off. Review of Systems - Review of Systems Cardiovascular: negative: Chest Pain, Palpitations, Orthopnea, Paroxysmal Noc. Dyspnea, Edema, Light Headedness - Medications/Allergies Allergies/Adverse Reactions: Allergies Allergy/AdvReac Type Severity Reaction Status Date / Time No Known Allergies Allergy Verified 07/16/17 14:20 Medications: Current Medications Hydrocodone Bitart/Acetaminophen (Hydrocodone-Apap 7.5-325/15) 15 ml PO Q4H PRN PRN Reason: Mild-Moderate Pain (1-5) Last Admin: 08/16/17 08:27 Dose: 15 ml Carvedilol (Coreg) 25 mg PO BID-[facility] Last Admin: 08/16/17 08:18 Dose: 25 mg Citalopram Hydrobromide (Celexa) 40 mg PO DAILY [facility] Last Admin: 08/16/17 08:19 Dose: 40 mg Potassium Chloride/Dextrose/Sod Cl (D5 1/2 Ns W/20 Meq Kcl) 1,000 mls @ 50 mls/ hr IV .Q20H [facility] Last Admin: 08/16/17 00:00 Dose: 1,000 mls Meropenem 1 gm/ Device 50 mls @ 100 mls/hr IVPB Q12HR [facility] Last Admin: 08/16/17 08:21 Dose: 50 mls Morphine Sulfate (Morphine) 2 mg SLOW IVP Q1H PRN PRN Reason: Mild-Moderate Pain (1-5) Last Admin: 08/15/17 08:15 Dose: 2 mg Morphine Sulfate (Morphine) 4 mg SLOW IVP Q1H PRN PRN Reason: Moderate to Severe Pain (6-10) Last Admin: 08/14/17 20:00 Dose: 4 mg Ondansetron HCl (Zofran) 4 mg SLOW IVP Q8H PRN PRN Reason: Nausea/Vomiting Last Admin: 08/15/17 03:58 Dose: 4 mg Ondansetron HCl (Zofran Odt) 8 mg SL Q6H PRN PRN Reason: Nausea/Vomiting Pantoprazole Sodium (Protonix) 40 mg IVP DAILY [facility] Last Admin: 08/16/17 08:18 Dose: 40 mg Promethazine HCl (Phenergan) 12.5 mg SLOW IVP Q2H PRN PRN Reason: Nausea/Vomiting Last Admin: 08/13/17 20:58 Dose: 12.5 mg Promethazine HCl (Phenergan) 25 mg PO Q4H PRN PRN Reason: Nausea/Vomiting Last Admin: 08/16/17 08:27 Dose: 25 mg Rivaroxaban (Xarelto) 20 mg PO 1800 [facility] Last Admin: 08/15/17 17:15 Dose: 20 mg Sodium Chloride (Flush - Normal Saline) 10 ml IVF Q12HR [facility] Last Admin: 08/16/17 08:19 Dose: Not Given Sodium Chloride (Flush - Normal Saline) 10 ml IVF PRN PRN PRN Reason: Saline Flush
--- NOTE | 2017-08-16 14:31 | DIS ---
DISCHARGE DIAGNOSES: Dehydration, acute renal insufficiency. PROCEDURES DURING ADMISSION: CT scan of abdomen, IV hydration. HOSPITAL COURSE: The patient was admitted, given IV fluids. CT scan had shown that the fluid colle ction was diminished. She was able to be rehydrated. Her renal function returned to normal. She i s now doing better with that. She is now being discharged on hydrocodone. She will continue her IV antibiotics at home plus the addition of 2 liters of fluid weekly. She will follow up with me in 2 weeks.
--- NOTE | 2017-08-16 23:46 | PRG ---
DATE OF SERVICE: 08/16/2017 SUBJECTIVE: Patient was seen and examined at bedside and overnight events noted. Patient denies an y shortness of breath or chest pain or palpitation. No history of nausea or vomiting or diarrhea or fever or chills or cramps. OBJECTIVE: GENERAL: This is a well-built female in no apparent distress. VITAL SIGNS: Temperature , respiratory rate 18, blood pressure 147/70. HEENT: Atraumatic, normocephalic, oral mucosa is moist. NECK: Supple. CARDIOVASCULAR: S1, S2 heard, rate and rhythm regular. RESPIRATORY: Clear to auscultation. GASTROINTESTINAL: Abdomen is soft. MUSCULOSKELETAL: No tenderness, no edema. DERMATOLOGIC: No skin rash. NEUROLOGIC: Alert and awake and oriented x3, no focal neurologic deficits. Moving all the extremit ies. PSYCHIATRIC: Mood and affect normal. LABORATORY DATA: Potassium is 4.0, BUN 6, creatinine 1.01. ASSESSMENT AND PLAN: 1. Acute kidney injury, much better. 2. Acidosis. 3. Hypoalbuminemia. 4. Hyponatremia, better. Overall, Ms. Espinosa looking better. The patient is feeling better. The patient will be discharged ho me today and advised to follow up in 1 to 2 weeks.
== END 2017-08-16 15:07 | disposition home or self-care (01) | DRG 683 ==
LOC: 2NO 15:56
PROVIDERS: ADMIT Surgery; ATTEND Surgery
DX: N17.9 Acute kidney failure, unspecified (principal); E87.2 Acidosis; E44.1 Mild protein-calorie malnutrition; E86.0 Dehydration; I10 Essential (primary) hypertension; I48.0 Paroxysmal atrial fibrillation; E87.1 Hypo-osmolality and hyponatremia; E88.09 Other disorders of plasma-protein metabolism, not elsewhere classified; Z90.3 Acquired absence of stomach [part of]; Z85.3 Personal history of malignant neoplasm of breast; Z79.01 Long term (current) use of anticoagulants; Z90.13 Acquired absence of bilateral breasts and nipples; F17.210 Nicotine dependence, cigarettes, uncomplicated; R19.7 Diarrhea, unspecified; R11.2 Nausea with vomiting, unspecified; E87.6 Hypokalemia; Z68.28 Body mass index [BMI] 28.0-28.9, adult; Z95.828 Presence of other vascular implants and grafts
CPT/HCPCS: 36415; 80048; 80053; 85025; A4216; C9113; J2185; J2270; J2405; J2550; J7050

== ENCOUNTER 2021-08-15 11:39 | Outpatient (CLI) | payer BC ==
[2021-08-18 18:36] LABS: Cardiolipin IgA Ab 2.5 APL-U/mL (<14 Negative); Cardiolipin IgG Ab 1.5 GPL-U/mL (<10 Negative); Cardiolipin IgM Ab 6.2 MPL-U/mL (<10 Negative); EliA APS New Method **** NEW METHOD ****
== END 2021-08-15 11:40 | disposition home or self-care (01) ==
LOC: LABBT 11:39
PROVIDERS: ATTEND Internal Medicine Cardiovascular Disease
DX: Z01.818 Encounter for other preprocedural examination (principal); I48.91 Unspecified atrial fibrillation; R29.6 Repeated falls
CPT/HCPCS: 80053; 85027; 85610; 85730; 86147; 86850; 86900; 86901; 93005; 93010; U0003; U0005

== ENCOUNTER 2021-08-15 11:45 | Inpatient (IN) | payer BC ==
[2021-08-15 12:54] LABS: Hemoglobin 13.4 g/dL (12.0-15.5); Mean Corpuscular HGB CONC 33.1 g/dL (32.0-36.0); Mean Corpuscular Volume 96.7 fl (81.6-98.3); Mean Platelet Volume 10.4 fl (7.4-10.4); Platelet Count 239 10x3/uL (150-450); RBC Distribution Width 11.5 % (11.5-14.5); Red Blood Cell (RBC) Count 4.19 10x6/uL (3.90-5.03); White Blood Cell (WBC) Count 6.3 10x3/uL (3.5-10.5)
[2021-08-15 13:49] LABS: Prothrombin Time 11.5 sec (9.5-12.1)
[2021-08-15 13:59] LABS: ALT (SGPT) 15 U/L (8-55); AST (SGOT) 16 U/L (5-34); Albumin 4.2 g/dL (3.4-4.8); Alkaline Phosphatase 58 U/L (40-110); Anion Gap 12 mmol/L (10-20); BUN (Urea Nitrogen) 16 mg/dL (9.8-20.1); Bilirubin, Total 0.6 mg/dL (0.2-1.2); Calc. Creatinine Clearance 0 mL/min (70-130); Calcium 9.8 mg/dL (7.8-10.44); Carbon Dioxide 29 mmol/L (23-31); Chloride 108 mmol/L (98-107); Glucose 101 mg/dL (80-115); Potassium 5.7 mmol/L (3.5-5.1); Protein, Total 7.2 g/dL (5.8-8.1); Sodium 143 mmol/L (136-145)
[2021-08-16 01:56] LABS: SARS-CoV-2 PCR by NAA Not Detected (NotDetected)
[2021-08-17 12:31] VITALS: BMI 24.4
[2021-08-20] MEDS ORDERED: Phenylephrine 10 MG/ML VIAL ONE (06:46)
[2021-08-20] MEDS ORDERED: Midazolam HCl 2 mg/2 ml Vial ONE (07:29)
[2021-08-20] MEDS ORDERED: Dexamethasone 20 MG/5 ML VIAL ONE (07:38)
[2021-08-20] MEDS ORDERED: Glycopyrrolate 0.2 MG/ML 5 ML SYRINGE ONE (07:38)
[2021-08-20] MEDS ORDERED: PROPOFOL 200 MG/20 ML VIAL ONE (07:38)
[2021-08-20] MEDS ORDERED: Rocuronium Bromide 10 MG/ML (10ML VIAL) ONE (07:38)
[2021-08-20] MEDS ORDERED: PHENYLEPHRINE-NS 100 MCG/ML 10 ML SYRINGE ONE (07:38)
[2021-08-20] MEDS ORDERED: Ondansetron PF 4 MG/2 ML Vial ONE (07:38)
[2021-08-20] MEDS ORDERED: Lidocaine 1% PF 5 ML VIAL ONE (07:38)
[2021-08-20] MEDS ORDERED: Heparin 10,000 UNITS/ 10 ML VIAL ONE (07:52)
[2021-08-20] MEDS ORDERED: Protamine Sulfate 50 MG/5 ML VIAL ONE (08:59)
[2021-08-20] MEDS ORDERED: Fentanyl 100 MCG/2 ML VIAL ONE ×2 (09:42→10:56)
[2021-08-20] MEDS ORDERED: Iopamidol 370 76% 100 ML VIAL ONE (10:26)
== END 2021-08-20 14:18 | disposition home or self-care (01) | DRG 274 ==
LOC: SURG A 08-20 06:17
PROVIDERS: ADMIT Internal Medicine Cardiovascular Disease; ATTEND Internal Medicine Cardiovascular Disease
PROC: 02L73DK Occlusion of Left Atrial Appendage with Intraluminal Device, Percutaneous Approach (ICD-10-PCS; principal; 2021-08-20)
PROC: B24BZZ4 Ultrasonography of Heart with Aorta, Transesophageal (ICD-10-PCS; 2021-08-20)
DX: I48.19 Other persistent atrial fibrillation (principal); Z00.6 Encounter for examination for normal comparison and control in clinical research program; I34.0 Nonrheumatic mitral (valve) insufficiency; I25.10 Atherosclerotic heart disease of native coronary artery without angina pectoris; I10 Essential (primary) hypertension; I42.9 Cardiomyopathy, unspecified; F17.210 Nicotine dependence, cigarettes, uncomplicated; G47.00 Insomnia, unspecified; Z85.3 Personal history of malignant neoplasm of breast; Z85.828 Personal history of other malignant neoplasm of skin; Z92.21 Personal history of antineoplastic chemotherapy; Z90.10 Acquired absence of unspecified breast and nipple; Z90.710 Acquired absence of both cervix and uterus; Z79.899 Other long term (current) drug therapy; Z79.01 Long term (current) use of anticoagulants; Z98.84 Bariatric surgery status
CPT/HCPCS: 33340; 36415; 36430; 80053; 84132; 85027; 85347; 85610; 85730; 86850; 86900; 86901; 93306; C1759; J1100; J1644; J2250; J2370; J2405; J2704; J2720; J3010; U0003; U0005

== ENCOUNTER 2021-10-01 10:39 | Outpatient (CLI) | payer BC ==
[2021-10-01 13:26] LABS: INR-International Normal Ratio 1.1; PTT 29.4 sec (22.0-33.0); Prothrombin Time 11.8 sec (9.5-12.1)
[2021-10-01 13:30] LABS: Anion Gap 11 mmol/L (10-20); BUN (Urea Nitrogen) 14 mg/dL (9.8-20.1); Calc. Creatinine Clearance 0 mL/min (70-130); Calcium 9.3 mg/dL (7.8-10.44); Carbon Dioxide 28 mmol/L (23-31); Chloride 108 mmol/L (98-107); Glucose 95 mg/dL (80-115); Potassium 4.5 mmol/L (3.5-5.1); Sodium 142 mmol/L (136-145)
[2021-10-01 13:44] LABS: Hemoglobin 12.9 g/dL (12.0-15.5); Mean Corpuscular Hemoglobin 32.1 pg (27.0-33.0); Mean Corpuscular Volume 97.3 fl (81.6-98.3); Mean Platelet Volume 10.6 fl (7.4-10.4); Platelet Count 248 10x3/uL (150-450); RBC Distribution Width 11.3 % (11.5-14.5); Red Blood Cell (RBC) Count 4.02 10x6/uL (3.90-5.03); White Blood Cell (WBC) Count 5.6 10x3/uL (3.5-10.5)
[2021-10-02 10:22] LABS: SARS-CoV-2 PCR by NAA Not Detected (NotDetected)
== END 2021-10-01 10:40 | disposition home or self-care (01) ==
LOC: LABBT 10:39
PROVIDERS: ATTEND Internal Medicine Cardiovascular Disease
DX: Z01.818 Encounter for other preprocedural examination (principal); Z20.822 Contact with and (suspected) exposure to COVID-19
CPT/HCPCS: 80048; 85027; 85610; 85730; 93005; 93010; U0003; U0005

== ENCOUNTER 2021-10-03 06:33 | Day surgery (SDC) | payer BC ==
[2021-10-01 14:43] VITALS: BMI 24.4
[2021-10-03] MEDS ORDERED: Midazolam HCl 2 mg/2 ml Vial ONE (07:09)
[2021-10-03] MEDS ORDERED: Lidocaine 1% PF 5 ML VIAL ONE (07:29)
[2021-10-03] MEDS ORDERED: PROPOFOL 200 MG/20 ML VIAL ONE (07:29)
[2021-10-03] MEDS ORDERED: ePHEDrine 50 MG/ML VIAL ONE (07:29)
== END 2021-10-03 08:53 | disposition home or self-care (01) ==
LOC: CCL 06:33 → EDSTATUS 11:15
PROVIDERS: ATTEND Internal Medicine Cardiovascular Disease
PROC: B24BZZ4 Ultrasonography of Heart with Aorta, Transesophageal (ICD-10-PCS; principal; 2021-10-03)
DX: I48.19 Other persistent atrial fibrillation (principal); I08.1 Rheumatic disorders of both mitral and tricuspid valves; F17.210 Nicotine dependence, cigarettes, uncomplicated; Z79.01 Long term (current) use of anticoagulants; Z79.899 Other long term (current) drug therapy
CPT/HCPCS: 93312; J2250; J2704; J3490

== ENCOUNTER 2022-04-08 11:40 | Outpatient (CLI) | payer BC, SELFPAY ==
[2022-04-08 12:31] LABS: #Eosinphils 0.2 10x3/uL (0.0-0.5); #Monocytes 0.6 10x3/uL (0.0-1.1); #Neutrophils 4.5 10x3/uL (1.5-8.4); %Basophils 0.5 % (0.0-2.0); %Eosinophils 2.3 % (0.0-6.0); %Lymphocytes 27.9 % (18.0-47.0); %Monocytes 8.2 % (0.0-10.0); %Neutrophils 60.7 % (40.0-75.0); Hemoglobin 13.1 g/dL (12.0-15.5); Mean Corpuscular HGB CONC 34.3 g/dL (32.0-36.0); Mean Corpuscular Hemoglobin 33.1 pg (27.0-33.0); Mean Corpuscular Volume 96.5 fl (81.6-98.3); Mean Platelet Volume 10.1 fl (7.4-10.4); Platelet Count 249 10x3/uL (150-450); RBC Distribution Width 11.5 % (11.5-14.5); Red Blood Cell (RBC) Count 3.96 10x6/uL (3.90-5.03); White Blood Cell (WBC) Count 7.4 10x3/uL (3.5-10.5)
== END 2022-04-08 11:41 | disposition home or self-care (01) ==
LOC: LABBT 11:40
PROVIDERS: ATTEND Orthopaedic Surgery Hand Surgery
DX: Z01.812 Encounter for preprocedural laboratory examination (principal); M65.311 Trigger thumb, right thumb; Z20.822 Contact with and (suspected) exposure to COVID-19
CPT/HCPCS: 85025; U0003; U0005

== ENCOUNTER 2022-04-12 05:57 | Day surgery (SDC) | payer BC, SELFPAY ==
[2022-04-09 14:54] VITALS: BMI 23.0
[2022-04-12] MEDS ORDERED: fentaNYL Citrate/PF 100 MCG/2 ML SYRINGE ONE (06:04)
[2022-04-12] MEDS ORDERED: Neomycin-Polymyxin 1 ML AMP ONE (06:10)
[2022-04-12] MEDS ORDERED: Bacitracin Zinc Ointment 30 gm TUBE ONE (06:10)
[2022-04-12] MEDS ORDERED: Bupivacaine PF 0.5% 30 ML VIAL ONE (06:10)
[2022-04-12] MEDS ORDERED: Betamet Acet/Betamet Na Ph 30 MG/5 ML VIAL ONE (06:10)
[2022-04-12] MEDS ORDERED: Lidocaine 1% MPF 2 ML VIAL ONE (06:24)
[2022-04-12] MEDS ORDERED: Sodium Chloride 0.9% 100 ML ONE (06:51)
[2022-04-12] MEDS ORDERED: CEFAZOLIN 2 GM VIAL ONE (06:51)
[2022-04-12] MEDS ORDERED: Propofol 1,000 MG/100 ML VIAL IV ONE (06:52)
[2022-04-12] MEDS ORDERED: Lidocaine 2% 6 ML SYR ONE (06:52)
[2022-04-12] MEDS ORDERED: Midazolam HCl 2 mg/2 ml Vial ONE (07:09)
[2022-04-12] MEDS ORDERED: PROPOFOL 200 MG/20 ML VIAL ONE (07:19)
[2022-04-12] MEDS ORDERED: Ketorolac Tromethamine 30 MG/ML VIAL ONE (08:36)
== END 2022-04-12 08:54 | disposition home or self-care (01) ==
LOC: SDC 05:57
PROVIDERS: ATTEND Orthopaedic Surgery Hand Surgery
PROC: 0LN70ZZ Release Right Hand Tendon, Open Approach (ICD-10-PCS; principal; 2022-04-12)
DX: M65.311 Trigger thumb, right thumb (principal); M65.841 Other synovitis and tenosynovitis, right hand; F17.210 Nicotine dependence, cigarettes, uncomplicated; Z85.3 Personal history of malignant neoplasm of breast; Z79.82 Long term (current) use of aspirin; Z79.899 Other long term (current) drug therapy; Z98.84 Bariatric surgery status
CPT/HCPCS: J0690; J0702; J1885; J2250; J2704; J3490; S0020